=== PATIENT | female | born 1955 | race Caucasian/White ===

== ENCOUNTER → 2024-09-08 | Outpatient (CLI) | payer MEDICARE, SELFPAY ==
--- NOTE | 2024-09-08 15:30 | XR_ITS ---
Examination: CT lumbar spine, without contrast. 2-D sagittal reconstructions. 2-D coronal reconstructions. 3-D reconstructions. Date and time of exam:September 08, 2024 1548 hours INDICATIONS: Low back pain radiating down the left leg 5 years CTDI: vol (mGy):54.2 DLP: (mGycm):1621 Technique: Multiple 1.25 mm axial sections of the lumbar spine without intravenous contrast have been obtained. 2-D sagittal and coronal reconstructions have been obtained. 3-D reconstructions have been obtained. Low dose protocols were performed. One or more of the following dose reduction techniques were used; automated exposure control, adjustment of the mA and/or KV according to patient size, use of iterative reconstruction technique. Findings: Moderate osteopenia No lumbar fracture Mild lumbar spondylosis No significant lumbar disc narrowing Lumbar pedicles, laminae, transverse and posterior spinous processes are intact L5-S1 no disc protrusion L4-L5 2 mm central lumbar disc bulge L3-L4 no disc protrusion L2-L3 no disc protrusion L1-L2 no disc protrusion IMPRESSION: No lumbar fracture or significant lumbar disc narrowing L4-L5 2 mm central lumbar disc bulge Consider MRI lumbar spine without contrast follow-up to best assess for acquired soft tissue spinal stenosis
[2024-09-08 15:59] LABS: Basophils % (Auto) 1 % (0-2.5); Eosinophils # (Auto) 0.1 Thou/mm3 (0.0-0.5); Eosinophils % (Auto) 2 % (0-10); Hematocrit 31.3 % (36.0-46.0); Hemoglobin 9.5 g/dL (12.0-16.0); Immature Granulocytes % (Auto) 0 % (0-0); Immature Granulocytes Auto 0.02 Thou/mm3 (0.00-0.00); Lymphocytes % (Auto) 16 % (10-50); Mean Corpuscular HGB Conc 30.4 g/dl (31.0-37.0); Mean Corpuscular Hemoglobin 27.9 pg (25.0-35.0); Mean Corpuscular Volume 92 fL (80-100); Monocytes # (Auto) 0.4 Thou/mm3 (0.0-0.8); Monocytes % (Auto) 7 % (0-12); Neutrophils # (Auto) 4.5 Thou/mm3 (1.8-7.7); Neutrophils % (Auto) 74 % (37-80); Nucleated Red Blood Cell % 0 /100 WBC (0); Platelet Count 365 Thou/mm3 (140-440); RDW Standard Deviation 50.3 fL (36.4-46.3); Red Blood Count 3.41 Miln/mm3 (4.00-5.20); White Blood Count 6.1 Thou/mm3 (3.6-11.0)
[2024-09-08 16:16] LABS: Folate 9.03 ng/mL (>5.38); Vitamin B12 341 pg/mL (211-911)
[2024-09-08 16:31] LABS: Alanine Aminotransferase 9 U/L (10-49); Albumin, Serum 4.5 gm/dL (3.4-4.8); Alkaline Phosphatase 116 U/L (46-116); Anion Gap 4 (7-16); Aspartate Amino Transferase < 8 U/L (0-34); B-Type Natriuretic Peptide 527 pg/mL (0-100); BUN/Creatinine Ratio 20 Ratio (12-20); Bilirubin,Total 0.8 mg/dL (0.3-1.2); Blood Urea Nitrogen 20 mg/dL (9-23); Calcium 9.8 mg/dL (8.3-10.6); Calcium (Corrected) 9.8 mg/dL (8.5-10.1); Carbon Dioxide 31.1 mMol/L (20.0-31.0); Chloride 104 mMol/L (98-107); Globulin 2.2 gm/dL (2.3-3.5); Glucose 107 mg/dL (74-106); Osmolality,Calculated 280 (275-295); Potassium 4.5 mMol/L (3.4-5.1); Sodium 139 mMol/L (136-145); Total Protein 6.7 gm/dL (5.7-8.2); eGFR > 60 See Note
[2024-09-08 16:35] LABS: Ferritin 79 ng/mL (7.3-270.7); Total Iron Binding Capacity 331 mcg/dL (250-425)
[2024-09-08 16:44] LABS: Iron 42 mcg/dL (50-170)
[2024-09-12 06:48] LABS: Gamma Glutamyl Transpeptidase* 29 U/L (3-65)
[2024-09-14 13:34] LABS: Vitamin B1 (Thiamine)* 12 nmol/L (8-30)
== END | disposition home or self-care (01) ==
LOC: CCTX 14:43 → COPL 14:49
PROVIDERS: PCP Nurse Practitioner; Referring Provider Nurse Practitioner; Visit Provider Radiology Diagnostic Radiology
DX: M51.369 Other intervertebral disc degeneration, lumbar region without mention of lumbar back pain or lower extremity pain (principal); D63.8 Anemia in other chronic diseases classified elsewhere; E87.6 Hypokalemia; R06.00 Dyspnea, unspecified; F10.20 Alcohol dependence, uncomplicated
CPT/HCPCS: 36415; 72131; 80053; 82607; 82728; 82746; 82977; 83540; 83550; 83880; 84425; 85025

== ENCOUNTER → 2024-09-26 | Outpatient (CLI) | payer MEDICARE, SELFPAY ==
[2024-09-26 09:28] LABS: Basophils % (Auto) 1 % (0-2.5); Eosinophils # (Auto) 0.3 Thou/mm3 (0.0-0.5); Eosinophils % (Auto) 5 % (0-10); Hematocrit 32.6 % (36.0-46.0); Hemoglobin 9.9 g/dL (12.0-16.0); Immature Granulocytes % (Auto) 0 % (0-0); Immature Granulocytes Auto 0.01 Thou/mm3 (0.00-0.00); Lymphocytes # (Auto) 1.1 Thou/mm3 (1.0-4.8); Lymphocytes % (Auto) 19 % (10-50); Mean Corpuscular HGB Conc 30.4 g/dl (31.0-37.0); Mean Corpuscular Hemoglobin 27.3 pg (25.0-35.0); Mean Corpuscular Volume 90 fL (80-100); Monocytes # (Auto) 0.4 Thou/mm3 (0.0-0.8); Monocytes % (Auto) 7 % (0-12); Neutrophils # (Auto) 3.8 Thou/mm3 (1.8-7.7); Neutrophils % (Auto) 68 % (37-80); Nucleated Red Blood Cell % 0 /100 WBC (0); Platelet Count 286 Thou/mm3 (140-440); Red Blood Count 3.62 Miln/mm3 (4.00-5.20); White Blood Count 5.7 Thou/mm3 (3.6-11.0)
[2024-09-26 09:40] LABS: B-Type Natriuretic Peptide 270 pg/mL (0-100)
[2024-09-26 09:41] LABS: Alanine Aminotransferase 10 U/L (10-49); Albumin, Serum 4.4 gm/dL (3.4-4.8); Albumin/Globulin Ratio 1.6 (1.2-2.2); Alkaline Phosphatase 120 U/L (46-116); Anion Gap 9 (7-16); Aspartate Amino Transferase 16 U/L (0-34); BUN/Creatinine Ratio 19 Ratio (12-20); Bilirubin,Total 0.9 mg/dL (0.3-1.2); Blood Urea Nitrogen 17 mg/dL (9-23); Calcium 9.8 mg/dL (8.3-10.6); Calcium (Corrected) 9.8 mg/dL (8.5-10.1); Carbon Dioxide 30.5 mMol/L (20.0-31.0); Chloride 104 mMol/L (98-107); Creatinine (Component) 0.9 mg/dL (0.6-1.3); Globulin 2.7 gm/dL (2.3-3.5); Glucose 98 mg/dL (74-106); Osmolality,Calculated 286 (275-295); Potassium 3.4 mMol/L (3.4-5.1); Sodium 143 mMol/L (136-145); Total Protein 7.1 gm/dL (5.7-8.2); eGFR > 60 See Note
== END | disposition home or self-care (01) ==
LOC: COPL 08:35
PROVIDERS: PCP Family Medicine; Referring Provider Nurse Practitioner; Visit Provider Nurse Practitioner
DX: I50.9 Heart failure, unspecified (principal); R06.00 Dyspnea, unspecified; E87.6 Hypokalemia
CPT/HCPCS: 36415; 80053; 83880; 85025

== ENCOUNTER 2025-02-20 05:37 | Inpatient (IN) | payer MEDICARE, SELFPAY ==
[2025-02-20] VITALS (19 sets, daily range): BP systolic 120–217; BP diastolic 66–118; PULSE 72–121; RESP 12–44; TEMP 36–36.9; O2SAT 88–100; BMI 41.9
--- NOTE | 2025-02-20 05:40 | EKG_ITS ---
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
--- NOTE | 2025-02-20 05:43 | XR_ITS ---
Examination: AP chest single view Technique an AP portable upright chest single view Exam date and time: February 20, 2025 at 0607 hours INDICATIONS: Shortness of breath a FINDINGS: [id number] CHF Mild to moderate enlargement cardiac contour Prominent vascular congestion including central vascular engorgement with bilateral perihilar edema throughout the lungs Moderate osteopenia IMPRESSION: Ehgb-ft-fhxkjger CHF
--- NOTE | 2025-02-20 05:43 | PD.EDRME ---
Rapid Medical Screening Exam RME Arrival date/time: 02/20/25 05:37 Chief Complaint: Shortness of Breath/Dyspnea Vital signs: Vital Signs Temperature 98.4 F 02/20/25 05:37 Pulse Rate 112 H 02/20/25 05:37 Respiratory Rate 31 H 02/20/25 05:37 Blood Pressure 215/118 H 02/20/25 05:37 Pulse Oximetry (%) 90 L 02/20/25 05:37 Oxygen Delivery Method Room Air 02/20/25 05:37 RME Narrative: Shortness of breath initiated yesterday. No chest pain. Hx CHF. Chronic home O2 use 2L nightly and as needed.
[2025-02-20] MEDS: ONDANSETRON INJ 2 MG/ML INJ 2 ML 4 MG IV ×2 (06:14→07:45)
--- NOTE | 2025-02-20 06:28 | PD.EDSOB ---
ED SOB =RME/HPI General Chief Complaint: Shortness of Breath/Dyspnea Stated Complaint: SOB, CHEST PAIN, N/V Time Seen by Provider: 02/20/25 06:29 Arrival date/time: 02/20/25 05:37 RME / HPI RME / HPI Narrative: Shortness of breath initiated yesterday. No chest pain. Hx CHF. Chronic home O2 use 2L nightly and as needed. DR. CASPER MAIN ED EVALUATION: 69 year old female presents to the Emergency Department with complaint of shortness of breath. Patient missed a couple days of her lasix. Oxygen home use at night, 2L/min. 0854: Patient is now complaining also of lower abdominal pain. No rash. Related Data Home Medications ?Medication ?Instructions ?Recorded ?Confirmed furosemide 40 mg tablet 40 mg PO BID 08/07/23 02/20/25 sucralfate 100 mg/mL oral 10 ml PO QID PRN pain 08/07/23 02/20/25 suspension cholecalciferol (vitamin D3) 125 125 mcg PO DAILY 09/10/23 02/20/25 mcg (5,000 unit) capsule clonidine HCl 0.1 mg tablet 0.1 mg PO BID 09/10/23 02/20/25 fluoxetine 40 mg capsule 40 mg PO BID 09/10/23 02/20/25 gabapentin 300 mg capsule 300 mg PO BID 09/10/23 02/20/25 hydrocodone 10 mg-acetaminophen 1 tab PO Q4HR PRN Pain 09/10/23 08/24/24 325 mg tablet Held on 02/24/25. Instructions: Hold until you see your PCP clopidogrel 75 mg tablet 75 mg PO 1XD 07/24/24 02/20/25 Previous Rx's ?Medication ?Instructions ?Recorded aspirin 81 mg capsule 81 mg PO QDAY #30 caps 03/07/22 albuterol sulfate 90 mcg/actuation 1 inh inhalation QID PRN shortness 02/24/25 aerosol inhaler (Ventolin HFA) of breath or wheezing 1 month #6.7 grams atorvastatin 20 mg tablet 20 mg PO QDAY 1 month #30 tabs 02/24/25 guaifenesin 100 mg/5 mL oral liquid 200 mg (10 mL) PO QID PRN Cough Or 02/24/25 Congestion #473 mL lidocaine 5 % topical patch 1 patch top UD PRN Back Pain #15 ea 02/24/25 losartan 50 mg tablet 50 mg PO QDAY 1 month #30 tabs 02/24/25 pantoprazole 40 mg tablet,delayed 40 mg PO QDAY 30 days #30 tabs 02/24/25 release potassium chloride 20 mEq 20 meq PO QDAY 1 month #30 tabs 02/24/25 tablet,extended release tiotropium 2.5 mcg-olodaterol 2.5 2 puff inhalation QDAY 1 month #4 02/24/25 mcg/actuation mist for inhalation grams Allergies Allergy/AdvReac Type Severity Reaction Status Date / Time hydralazine Allergy Severe Anxiety Verified 08/25/24 05:02 Sulfa (Sulfonamide Allergy Severe Rash Verified 07/24/24 04:10 Antibiotics) Review of Systems Review of Systems Systems Reviewed: All systems reviewed, normal except as documented Narrative Review of Systems: GEN: No fever, no chills, no weight loss EYES: No discharge, no visual changes, no pain HEENT: No ear pain, no congestion, no sore throat PULM: + shortness of breath, no cough, no congestion CV: No chest pain, no dyspnea on exertion, no palpitations GI: No nausea, no vomiting, no diarrhea, no pain, no constipation : No frequency, no urgency and no dysuria MUSC/SKEL: No joint pain, no back pain SKIN: No rash PSYCH: No hallucinations, no depression HEME/LYMPH: No easy bleeding or bruising tendencies NEURO: No weakness, no headache Past Medical History Past Medical History NEUROLOGIC: Positive Head Trauma CARDIAC: Positive Cardiac Disorders, Angina, Heart Murmur, Coronary Artery Disease, Atherosclerotic Heart Disease, Peripheral Vascular Disease, Congestive Heart Failure, Edema, Cellulitis and Hypertension RESPIRATORY: Positive Chronic Obstructive Pulmonary Disease (COPD), Asthma, Pneumonia and Smoking GASTROINTESTINAL: Positive Gastrointestinal Disorders, Hepatitis, Cirrhosis, Gall Bladder Disease (removed), Ulcer, Hiatal Hernia, Hemorrhoids, Gastroesophageal Reflux Disease and Obesity MUSCULOSKELETAL: Positive Musculoskeletal Disorders, Arthritis, Osteoporosis, Degenerative Disk Disease, Scoliosis, Carpal Tunnel Syndrome and Fractures ENT: Positive Head Trauma PSYCHO/SOCIAL: Positive Depression and Anxiety OTHER HISTORY: Positive Hospitalization, Shingles, Falls, Chicken Pox, Measles, Hepatitis A and Hepatitis C Family History FAMILY HISTORY: Positive Family Respiratory Disorders, Family Cardiac Disorders, Family Gastrointestinal Problems, Family Cancer and Family Surgery Surgical History SURGICAL: Positive Cardiac Surgery, Coronary Stent, Angiogram, Abdominal Surgery, Joint Replacement, Arthroscopy and Hysterectomy Social History SMOKING STATUS: Never smoker SECOND HAND EXPOSURE: No SUBSTANCE USE: does not use ALCOHOL: Never ED Exam Narrative Physical exam: GENERAL APPEARANCE: alert and oriented x 4, well-developed, well-nourished, in respiratory distress, morbidly obese, she has a wet cough, diaphoretic VITALS: All vitals were reviewed and the pulse ox is 90% on room air, which is normal according to my interpretation. HEENT: Normocephalic, atraumatic; pupils equal, round, reactive to light; EOMI; mucous membranes pink, moist; oropharynx clear NECK: Supple LUNGS: respiratory distress, tachypneic, decreased air movement, bilateral lung crackles HEART: Regular rate, regular rhythm; normal S1, S2; no murmurs ABDOMEN: non distended; normal BS; soft, no tenderness, no guarding, no rebound; no masses, no organomegaly, no hernia BACK: no CVA tenderness EXTREMITIES: atraumatic; there is 3+ pitting edema bilaterally NEUROLOGIC: awake; alert and oriented x4; cranial nerves II-XII grossly intact; no focal sensory or motor deficits PSYCHIATRIC: appropriate mood and affect SKIN: warm, dry, normal color; no rashes Course Quality Measures none Orders Category Date Time Status Bedside COVID-19 Antigen Test NOW Care 02/20/25 06:51 Completed EKG (ED ONLY) *Do not use* NOW Care 02/20/25 05:40 Completed Rashid [Urinary Catheter] QS Care 02/20/25 07:25 Completed CXR [XR chest 1V] Stat Exams 02/20/25 05:43 Completed EKG (ED Only) Stat Exams 02/20/25 05:40 Draft BNP [B-Type Natriuretic Peptide] Stat Lab 02/20/25 06:13 Completed CBC Stat Lab 02/20/25 06:13 Completed CMP [Comprehensive Metabolic Panel] Stat Lab 02/20/25 06:13 Completed Troponin I Stat Lab 02/20/25 06:13 Completed UA, C/S IF [Urinalysis, C/S if Indicated] Stat Lab 02/20/25 07:56 Completed Furosemide Inj [Lasix Inj] Med 02/20/25 06:29 Discontinued 80 mg IVP X1 ONE Morphine Inj Med 02/20/25 06:29 Discontinued 3 mg IVP X1 ONE Morphine Inj Med 02/20/25 07:40 Discontinued 5 mg IVP X1 ONE Nitroglycerin Oint 2% [Nitro-paste Oint 2%] Med 02/20/25 06:29 Discontinued 1 inch TOP X1 ONE Ondansetron Inj [Zofran Inj] Med 02/20/25 05:48 Discontinued 4 mg IV X1 ONE Ondansetron Inj [Zofran Inj] Med 02/20/25 06:29 Discontinued 4 mg IV X1 ONE Ondansetron Inj [Zofran Inj] Med 02/20/25 07:40 Discontinued 4 mg IV X1 ONE BiPAP / CPAP NOW RT 02/20/25 06:40 Completed Reevaluation(s) Reevaluation #1: Patient is now complaining also of lower abdominal pain. No rash. Patient is no longer in respiratory distress. No longer diaphoretic. Abdomen is nontender, no rebound, benign. Legs are the same, there is 3+ pitting edema bilaterally. Time: 08:54 Vital Signs Vital signs: Vital Signs Temperature 98.4 F 02/20/25 05:37 Pulse Rate 112 H 02/20/25 05:37 Respiratory Rate 31 H 02/20/25 05:37 Blood Pressure 215/118 H 02/20/25 05:37 Pulse Oximetry (%) 90 L 02/20/25 05:37 Oxygen Delivery Method Room Air 02/20/25 05:37 Shortness of Breath / Dyspnea MDM Narrative MDM Narrative:: Rae Davies am scribing for and in the presence of Dr. Casper. Patient data External records reviewed:: [facility] previous records (Reviewed last admission discharge dated 08/28/24, patient admitted for the following: Acute exacerbation of CHF.) Clinical information provided by:: patient Social determinants that could affect healthcare access:: none Patient has the following chronic illnesses:: Hypertension, HFrEF 50 to 60%, history of hepatitis C, coronary artery disease with Multiple coronary stent placement. How is presenting disease/condition affected by chronic disease/condition?: exacerbated by Evaluation data The following diagnostics were reviewed and interpreted by me:: lab results, radiology exam(s) and EKG tracing(s) (EKG#1: EKG at 0543 hours. Interpreted by me: sinus tachycardia, rate 104, Q waves in V1 and V2, artifact) Lab and/or radiology exams considered but not ordered:: none Interpretation Summary: Procedure(s): XR chest 1V Accession Number(s): [id number] cc: Julianna Yoon; Murray Leblanc MD; Alejandro Ng PA-C~ Examination: AP chest single view Technique an AP portable upright chest single view Exam date and time: February 20, 2025 at 0607 hours INDICATIONS: Shortness of breath a FINDINGS: [id number] CHF Mild to moderate enlargement cardiac contour Prominent vascular congestion including central vascular engorgement with bilateral perihilar edema throughout the lungs Moderate osteopenia IMPRESSION: [id number] CHF Dictated By: Murray Leblanc MD Medications / Prescriptions Medications or Prescriptions considered but not ordered:: none Medication administrations:: Medication Administration History Discontinued Medications Acetaminophen (Acetaminophen 325 Mg Tablet) 650 mg PO Q6H PRN PRN Reason: Pain (1-3) & Fever >100.4 Stop: 03/22/25 10:04 Last Admin: 02/20/25 19:21 Dose: 650 mg Documented By: BHUMIKA Hydrocodone Bitart/Acetaminophen (Hydrocodone/Apap 5/325 Tablet) 1 tab PO Q4HR PRN PRN Reason: PAIN SCALE 4-10(Mod-Sev Stop: 02/25/25 10:09 Last Admin: 02/21/25 09:47 Dose: 1 tab Documented By: Admin: 02/21/25 03:54 Dose: 1 tab Documented By: RICIK Hydrocodone Bitart/Acetaminophen (Hydrocodone/Apap 5/325 Tablet) 1 tab PO Q4HR PRN PRN Reason: PAIN SCALE 4-6 (Moderate Stop: 02/25/25 10:09 Hydrocodone Bitart/Acetaminophen (Hydrocodone/Apap 10/325 Tab) 1 tab PO Q4HR PRN PRN Reason: PAIN SCALE 4-10(Mod-Sev Stop: 02/27/25 11:55 Last Admin: 02/23/25 05:35 Dose: 1 tab Documented By: VR Albuterol/Ipratropium (Albuterol/Ipratropium (Duoneb) Rt Fatmata 3 Ml Nebu) 3 ml INH Q6HRRT LAMINE Stop: 03/25/25 12:59 Last Admin: 02/24/25 12:34 Dose: Not Given Documented By: RG Non-Admin Reason: Patient Refused Admin: 02/24/25 09:35 Dose: Not Given Documented By: CARLOS Non-Admin Reason: Other, see note Comments: rt unaware Admin: 02/24/25 01:03 Dose: 3 ml Documented By: Admin: 02/23/25 17:56 Dose: 3 ml Documented By: NICOLE Comments: tx early short staff Admin: 02/23/25 13:39 Dose: 3 ml Documented By: IFEANYI Amlodipine Besylate (Amlodipine Besylate 5 Mg Tablet) 5 mg PO QDAY LAMINE Stop: 03/24/25 08:59 Last Admin: 02/24/25 08:16 Dose: 5 mg Documented By: Admin: 02/23/25 09:00 Dose: 5 mg Documented By: Admin: 02/22/25 09:21 Dose: 5 mg Documented By: SHANTAL Aspirin (Aspirin Ec 81 Mg Tabec) 81 mg PO QDAY LAMINE Stop: 03/23/25 08:59 Last Admin: 02/24/25 08:16 Dose: 81 mg Documented By: Admin: 02/23/25 09:00 Dose: 81 mg Documented By: Admin: 02/22/25 09:22 Dose: 81 mg Documented By: Admin: 02/21/25 09:29 Dose: 81 mg Documented By: BOOKER Atorvastatin Calcium (Atorvastatin Calcium 20 Mg Tablet) 80 mg PO QPM LAMINE Stop: 03/23/25 20:59 Atropine Sulfate (Atropine Sulf Inj 1 Mg/Ml Vial) Confirm Administered Dose 1 mg .ROUTE .STK-MED ONE Stop: 02/22/25 07:24 Last Admin: 02/22/25 07:51 Dose: Not Given Documented By: Non-Admin Reason: Duplicate Medication on eMAR Clonidine (Clonidine Hcl 0.1 Mg Tablet) 0.1 mg PO X1 ONE Stop: 02/21/25 04:00 Last Admin: 02/21/25 04:08 Dose: 0.1 mg Documented By: RICKI Clonidine (Clonidine Hcl 0.1 Mg Tablet) 0.1 mg PO BID LAMINE Stop: 03/23/25 20:59 Last Admin: 02/22/25 09:21 Dose: 0.1 mg Documented By: Admin: 02/21/25 20:15 Dose: 0.1 mg Documented By: RICKI Clonidine (Clonidine Hcl 0.1 Mg Tablet) 0.1 mg PO TID LAMINE Stop: 03/24/25 13:59 Last Admin: 02/24/25 05:39 Dose: 0.1 mg Documented By: Admin: 02/23/25 22:28 Dose: Not Given Documented By: JAYDA Non-Admin Reason: PT REFUSED. AWARE Admin: 02/23/25 14:48 Dose: Not Given Documented By: DENISHA Non-Admin Reason: HOLD PER DR. MATUTE 127/448 Admin: 02/23/25 05:25 Dose: 0.1 mg Documented By: Admin: 02/22/25 21:00 Dose: 0.1 mg Documented By: Admin: 02/22/25 13:19 Dose: 0.1 mg Documented By: SHANTAL Clonidine (Clonidine Hcl 0.1 Mg Tablet) 0.1 mg PO BID LAMINE Stop: 03/26/25 20:59 Clopidogrel Bisulfate (Clopidogrel Bisulfate 75 Mg Tablet) 75 mg PO QDAY LAMINE Stop: 03/23/25 08:59 Last Admin: 02/24/25 08:16 Dose: 75 mg Documented By: Admin: 02/23/25 09:00 Dose: 75 mg Documented By: Admin: 02/22/25 09:22 Dose: 75 mg Documented By: Admin: 02/21/25 09:29 Dose: 75 mg Documented By: BOOKER Nitroglycerin 50 mg/ Sodium (Chloride 240 ml) 0 mg INTRA-JANEL X1 ONE Stop: 02/22/25 07:35 Last Admin: 02/22/25 08:08 Dose: Not Given Documented By: Non-Admin Reason: Duplicate Medication on eMAR Enoxaparin Sodium (Enoxaparin Sod Inj 40 Mg/0.4 Ml Syringe) 40 mg SC QDAY LAMINE Stop: 03/07/25 08:59 Last Admin: 02/24/25 08:15 Dose: 40 mg Documented By: Admin: 02/23/25 09:01 Dose: 40 mg Documented By: Admin: 02/22/25 09:22 Dose: 40 mg Documented By: Admin: 02/21/25 09:30 Dose: 40 mg Documented By: BOOKER Epinephrine HCl (Epinephrine Inj 0.1 Mg/Ml Syringe 10ml) Confirm Administered Dose 1 mg .ROUTE .STK-MED ONE Stop: 02/22/25 07:25 Last Admin: 02/22/25 07:53 Dose: Not Given Documented By: Non-Admin Reason: Duplicate Medication on eMAR Fentanyl Citrate (Fentanyl Cit Inj 50 Mcg/Ml Amp 2ml) Confirm Administered Dose 100 mcg .ROUTE .STK-MED ONE Stop: 02/22/25 07:24 Last Admin: 02/22/25 07:52 Dose: Not Given Documented By: Non-Admin Reason: Duplicate Medication on eMAR Flumazenil (Flumazenil Inj 0.1 Mg/Ml Vial 10 Ml) Confirm Administered Dose 1 mg .ROUTE .STK-MED ONE Stop: 02/22/25 07:25 Last Admin: 02/22/25 07:53 Dose: Not Given Documented By: Non-Admin Reason: Duplicate Medication on eMAR Fluoxetine HCl (Fluoxetine Hcl 10 Mg Capsule) 40 mg PO BID LAMINE Stop: 03/22/25 23:29 Last Admin: 02/24/25 08:15 Dose: 40 mg Documented By: Admin: 02/23/25 21:22 Dose: 40 mg Documented By: Admin: 02/23/25 09:01 Dose: 40 mg Documented By: Admin: 02/22/25 20:58 Dose: 40 mg Documented By: Admin: 02/22/25 09:21 Dose: 40 mg Documented By: Admin: 02/21/25 20:14 Dose: 40 mg Documented By: Admin: 02/21/25 09:40 Dose: Not Given Documented By: BOOKER Non-Admin Reason: Duplicate Medication on eMAR Admin: 02/20/25 23:26 Dose: 40 mg Documented By: RICKI Fluoxetine HCl (Fluoxetine Hcl 10 Mg Capsule) 40 mg PO BID LAMINE Stop: 03/23/25 08:59 Last Admin: 02/21/25 09:28 Dose: 40 mg Documented By: BOOKER Furosemide (Furosemide Inj 10 Mg/Ml 4ml Vial) 80 mg IVP X1 ONE Stop: 02/20/25 06:30 Last Admin: 02/20/25 06:46 Dose: 80 mg Documented By: JAY Furosemide (Furosemide Inj 10 Mg/Ml 4ml Vial) 40 mg IVP BIDD LAMINE Stop: 03/22/25 17:59 Last Admin: 02/24/25 05:38 Dose: 40 mg Documented By: Admin: 02/23/25 17:33 Dose: Not Given Documented By: DENISHA Non-Admin Reason: hold dose per Dr Marrero 122/45 Admin: 02/23/25 05:24 Dose: 40 mg Documented By: Admin: 02/22/25 17:24 Dose: 40 mg Documented By: Admin: 02/22/25 05:17 Dose: 40 mg Documented By: Admin: 02/21/25 17:19 Dose: 40 mg Documented By: Admin: 02/21/25 05:11 Dose: 40 mg Documented By: Admin: 02/20/25 18:50 Dose: 40 mg Documented By: BHUMIKA Gabapentin (Gabapentin 100 Mg Capsule) 300 mg PO BID LAMINE Stop: 03/22/25 20:59 Last Admin: 02/22/25 20:59 Dose: 300 mg Documented By: Admin: 02/22/25 09:22 Dose: 300 mg Documented By: Admin: 02/21/25 20:15 Dose: 300 mg Documented By: Admin: 02/21/25 09:28 Dose: 300 mg Documented By: Admin: 02/20/25 20:26 Dose: 300 mg Documented By: RICKI Gabapentin (Gabapentin 300 Mg Capsule) 300 mg PO BID LAMINE Stop: 03/22/25 20:59 Last Admin: 02/24/25 08:16 Dose: 300 mg Documented By: Admin: 02/23/25 21:22 Dose: 300 mg Documented By: Admin: 02/23/25 09:09 Dose: 300 mg Documented By: DENISHA Guaifenesin (Guaifenesin Syrup 200 Mg/10 Ml Udc) 200 mg PO X1 ONE; Protocol Stop: 02/21/25 19:42 Last Admin: 02/21/25 20:14 Dose: 200 mg Documented By: RICKI Guaifenesin (Guaifenesin Syrup 200 Mg/10 Ml Udc) 200 mg PO QID PRN; Protocol PRN Reason: COUGH OR CONGESTION Stop: 03/24/25 09:07 Last Admin: 02/23/25 21:22 Dose: 200 mg Documented By: Admin: 02/23/25 09:31 Dose: 200 mg Documented By: Admin: 02/23/25 00:33 Dose: 200 mg Documented By: Admin: 02/22/25 09:31 Dose: 200 mg Documented By: SHANTAL Heparin Sodium (Porcine) (Heparin Sod Inj 1000 Unit/Ml Vial 10 Ml) Confirm Administered Dose 20,000 unit .ROUTE .[facility]-MED ONE Stop: 02/22/25 07:25 Last Admin: 02/22/25 07:53 Dose: Not Given Documented By: Non-Admin Reason: Duplicate Medication on eMAR Magnesium Sulfate (Magnesium Sulfate Ivpb) 4 gm in 50 mls @ 12.5 mls/hr IV X1 ONE Stop: 02/21/25 11:45 Last Admin: 02/21/25 09:27 Dose: 12.5 mls/hr Documented By: BOOKER Magnesium Sulfate (Magnesium Sulfate Ivpb) 2 gm in 50 mls @ 25 mls/hr IV X1 ONE Stop: 02/22/25 09:27 Last Admin: 02/22/25 09:17 Dose: 25 mls/hr Documented By: SHANTAL Potassium Chloride (Kcl Ivpb) 10 meq in 100 mls @ 100 mls/hr IV Q1H LAMINE Stop: 02/23/25 10:08 Last Admin: 02/23/25 09:28 Dose: Not Given Documented By: DENISHA Non-Admin Reason: Patient Refused Admin: 02/23/25 09:26 Dose: Not Given Documented By: DENISHA Non-Admin Reason: Patient Refused Magnesium Sulfate/Dextrose (Magnesium Sulfate Ivpb) 1 gm in 100 mls @ 100 mls/hr IV X1 ONE Stop: 02/23/25 09:09 Last Admin: 02/23/25 09:35 Dose: 100 mls/hr Documented By: DENISHA Magnesium Sulfate/Dextrose (Magnesium Sulfate Ivpb) 1 gm in 100 mls @ 100 mls/hr IV X1 ONE Stop: 02/24/25 08:58 Last Admin: 02/24/25 08:15 Dose: 100 mls/hr Documented By: DENISHA Labetalol HCl (Labetalol Inj 5 Mg/Ml Vial 20 Ml) 10 mg IVP X1 ONE Stop: 02/21/25 17:09 Last Admin: 02/21/25 17:18 Dose: 10 mg Documented By: SHANTAL Lactulose (Lactulose Syrup 20 Gm/30 Ml Udc) 10 gm PO X1 ONE; Protocol Stop: 02/23/25 09:57 Last Admin: 02/23/25 11:03 Dose: 10 gm Documented By: DENISHA Lidocaine (Lidocaine 5% 1 Patch) 1 patch TOP UD PRN; Protocol PRN Reason: Back Pain Stop: 03/24/25 09:05 Lidocaine HCl (Lidocaine Inj Pf 1% 30 Ml Vial) Confirm Administered Dose 30 ml .ROUTE .STK-MED ONE Stop: 02/22/25 07:25 Last Admin: 02/22/25 07:53 Dose: Not Given Documented By: Non-Admin Reason: Duplicate Medication on eMAR Losartan Potassium (Losartan Potassium 25 Mg Tablet) 50 mg PO BID LAMINE Stop: 03/22/25 23:29 Last Admin: 02/24/25 08:17 Dose: 50 mg Documented By: Admin: 02/23/25 22:28 Dose: Not Given Documented By: JAYDA Non-Admin Reason: PT REFUSED. DR. MCKAY AWARE Admin: 02/23/25 08:59 Dose: 50 mg Documented By: Admin: 02/22/25 20:58 Dose: 50 mg Documented By: Admin: 02/22/25 09:21 Dose: 50 mg Documented By: Admin: 02/21/25 20:16 Dose: 50 mg Documented By: Admin: 02/21/25 09:29 Dose: 50 mg Documented By: Admin: 02/20/25 23:27 Dose: 50 mg Documented By: RICKI Melatonin (Melatonin 3 Mg Tablet) 3 mg PO HS ONE Stop: 02/21/25 19:42 Last Admin: 02/21/25 20:15 Dose: 3 mg Documented By: RICKI Midazolam HCl (Midazolam Inj 1 Mg/Ml Vial 2 Ml) Confirm Administered Dose 2 mg .ROUTE .STK-MED ONE Stop: 02/22/25 07:24 Last Admin: 02/22/25 07:52 Dose: Not Given Documented By: Non-Admin Reason: Duplicate Medication on eMAR Morphine Sulfate (Morphine Sulf Inj 10 Mg/Ml Vial) 3 mg IVP X1 ONE Stop: 02/20/25 06:30 Last Admin: 02/20/25 06:47 Dose: 3 mg Documented By: JAY Morphine Sulfate (Morphine Sulf Inj 10 Mg/Ml Vial) 5 mg IVP X1 ONE Stop: 02/20/25 07:41 Last Admin: 02/20/25 07:50 Dose: 5 mg Documented By: ENOC Morphine Sulfate (Morphine Sulf Inj 10 Mg/Ml Vial) 2 mg IVP Q4HR PRN PRN Reason: Severe Pain (7-10) Stop: 02/27/25 09:05 Last Admin: 02/22/25 09:17 Dose: 2 mg Documented By: SHANTAL Morphine Sulfate (Morphine Sulf Inj 10 Mg/Ml Vial) 2 mg IVP Q4HR PRN PRN Reason: BREAKTHROUGH PAIN (SEVERE) Stop: 02/27/25 09:05 Naloxone HCl (Naloxone Inj 0.4 Mg/Ml Vial) Confirm Administered Dose 1.2 mg .ROUTE .STK-MED ONE Stop: 02/22/25 07:24 Last Admin: 02/22/25 07:52 Dose: Not Given Documented By: Non-Admin Reason: Duplicate Medication on eMAR Nitroglycerin (Nitroglycerin Oint 2% 1 Inch Packet) 1 inch TOP X1 ONE Stop: 02/20/25 06:30 Last Admin: 02/20/25 06:47 Dose: 1 inch Documented By: JAY Ondansetron HCl (Ondansetron Inj 2 Mg/Ml Inj 2 Ml) 4 mg IV X1 ONE; Protocol Stop: 02/20/25 05:49 Last Admin: 02/20/25 06:14 Dose: 4 mg Documented By: JAY Ondansetron HCl (Ondansetron Inj 2 Mg/Ml Inj 2 Ml) 4 mg IV X1 ONE Stop: 02/20/25 06:30 Last Admin: 02/20/25 07:22 Dose: Not Given Documented By: GEM Non-Admin Reason: Cancelled by Provider Ondansetron HCl (Ondansetron Inj 2 Mg/Ml Inj 2 Ml) 4 mg IV X1 ONE Stop: 02/20/25 07:41 Last Admin: 02/20/25 07:45 Dose: 4 mg Documented By: ENOC Ondansetron HCl (Ondansetron Inj 2 Mg/Ml Inj 2 Ml) 4 mg IV Q6H PRN; Protocol PRN Reason: NAUSEA OR VOMITING Stop: 03/22/25 10:09 Last Admin: 02/21/25 17:35 Dose: 4 mg Documented By: SHANTAL Pantoprazole Sodium (Pantoprazole 40 Mg Tablet) 40 mg PO QDAY LAMINE Stop: 03/23/25 08:59 Last Admin: 02/24/25 08:16 Dose: 40 mg Documented By: Admin: 02/23/25 09:01 Dose: 40 mg Documented By: Admin: 02/22/25 09:22 Dose: 40 mg Documented By: Admin: 02/21/25 09:29 Dose: 40 mg Documented By: BOOKER Phenylephrine HCl (Phenylephrine Inj 10 Mg/Ml Vial) Confirm Administered Dose 10 mg .ROUTE .STK-MED ONE Stop: 02/22/25 07:24 Last Admin: 02/22/25 07:52 Dose: Not Given Documented By: Non-Admin Reason: Duplicate Medication on eMAR Phenylephrine HCl (Phenylephrine Inj In Ns 100 Mcg/Ml 10 Ml Syringe) Confirm Administered Dose 1,000 mcg .ROUTE .STK-MED ONE Stop: 02/22/25 07:25 Last Admin: 02/22/25 07:53 Dose: Not Given Documented By: Non-Admin Reason: Duplicate Medication on eMAR Polyethylene Glycol (Polyethylene Glycol 17 Gm Packet) 17 gm PO QDAY LAMINE Stop: 03/23/25 09:44 Last Admin: 02/24/25 08:15 Dose: Not Given Documented By: DENISHA Non-Admin Reason: Patient Refused Admin: 02/23/25 08:59 Dose: 17 gm Documented By: Admin: 02/22/25 09:21 Dose: 17 gm Documented By: Admin: 02/21/25 10:31 Dose: 17 gm Documented By: BOOKER Potassium Chloride (Potassium Chloride 20 Meq Tabcr) 40 meq PO X1 ONE Stop: 02/21/25 07:46 Last Admin: 02/21/25 09:27 Dose: 40 meq Documented By: BOOKER Potassium Chloride (Potassium Chloride 20 Meq Tabcr) 40 meq PO X1 ONE Stop: 02/22/25 07:28 Last Admin: 02/22/25 09:22 Dose: 40 meq Documented By: SHANTAL Potassium Chloride (Potassium Chloride 20 Meq Tabcr) 40 meq PO X1 ONE Stop: 02/23/25 08:10 Last Admin: 02/23/25 09:08 Dose: 40 meq Documented By: DENISHA Potassium Chloride (Potassium Chloride 20 Meq Tabcr) 20 meq PO X1 ONE Stop: 02/23/25 09:57 Last Admin: 02/23/25 11:03 Dose: 20 meq Documented By: DENISHA Potassium Chloride (Potassium Chloride 20 Meq Tabcr) 40 meq PO X1 ONE Stop: 02/24/25 08:00 Last Admin: 02/24/25 08:16 Dose: 40 meq Documented By: DENISHA Sennosides (Senna Tablet) 2 tab PO QDAY PRN; Protocol PRN Reason: Constipation Stop: 03/23/25 08:59 Sennosides (Senna Tablet) 2 tab PO QDAY LAMINE; Protocol Stop: 03/23/25 09:44 Last Admin: 02/24/25 08:15 Dose: Not Given Documented By: DENISHA Non-Admin Reason: Patient Refused Admin: 02/23/25 09:00 Dose: 2 tab Documented By: Admin: 02/22/25 09:20 Dose: 2 tab Documented By: Admin: 02/21/25 10:31 Dose: 2 tab Documented By: BOOKER Sucralfate (Sucralfate Susp 1 Gm/10 Ml Udc) 1 gm PO QID PRN; Protocol PRN Reason: PAIN Stop: 03/23/25 07:37 Verapamil HCl (Verapamil Inj 2.5 Mg/Ml Vial 2 Ml) Confirm Administered Dose 5 mg .ROUTE .STK-MED ONE Stop: 02/22/25 07:24 Last Admin: 02/22/25 07:53 Dose: Not Given Documented By: Non-Admin Reason: Duplicate Medication on eMAR see above Consultations Consultation(s) initiated? (list below): Yes Consultation #1 (Physician, Specialty, Details): Discussed test HPI, PMHx, lab, radiology results and/or management with hospitalist. Will admit for further evaluation and management. Accepts patient for admission. Time: 08:57 Diagnosis Shortness of Breath Differential Diagnosis: acute exacerbation of chronic obstructive airways disease, congestive heart failure and community acquired pneumonia Most likely diagnosis given after review of the tests above:: CHF exacerbation Admission Indicated Admission indicated?: indicated Admission Request Was there a request for admission?: Yes Admission Attestation Admission request attestation: Discussed case with [] from Hospitalist service regarding admission. Discussed patients ED course, exam findings, labs, and radiology results. The Hospitalist [agrees,declines] to accept the patient for admission. Disposition Plan Disposition Plan: Admit Discharge Plan Plan Patient Disposition: Admit Acute Care w/in Hospital Problem List Clinical Impression: CHF exacerbation
[2025-02-20 06:37] LABS: Basophils # (Auto) 0.1 Thou/mm3 (0.0-0.2); Basophils % (Auto) 1 % (0-2.5); Eosinophils # (Auto) 0.3 Thou/mm3 (0.0-0.5); Eosinophils % (Auto) 3 % (0-10); Hematocrit 36.7 % (36.0-46.0); Hemoglobin 11.3 g/dL (12.0-16.0); Immature Granulocytes % (Auto) 1 % (0-0); Immature Granulocytes Auto 0.06 Thou/mm3 (0.00-0.00); Lymphocytes % (Auto) 9 % (10-50); Mean Corpuscular HGB Conc 30.8 g/dl (31.0-37.0); Mean Corpuscular Hemoglobin 26.4 pg (25.0-35.0); Mean Corpuscular Volume 86 fL (80-100); Monocytes % (Auto) 9 % (0-12); Neutrophils # (Auto) 8.6 Thou/mm3 (1.8-7.7); Neutrophils % (Auto) 78 % (37-80); Nucleated Red Blood Cell % 0 /100 WBC (0); Platelet Count 384 Thou/mm3 (140-440); RDW Standard Deviation 54.6 fL (36.4-46.3); Red Blood Count 4.28 Miln/mm3 (4.00-5.20); White Blood Count 10.9 Thou/mm3 (3.6-11.0)
[2025-02-20] MEDS: FUROSEMIDE INJ 10 MG/ML 4ML VIAL 80 MG IVP (06:46)
[2025-02-20] MEDS: MORPHINE SULF INJ 10 MG/ML VIAL 3 MG IVP (06:47)
[2025-02-20] MEDS: NITROGLYCERIN OINT 2% 1 INCH PACKET TOP (06:47)
[2025-02-20 06:49] LABS: Alanine Aminotransferase 25 U/L (10-49); Albumin, Serum 4.7 gm/dL (3.4-4.8); Albumin/Globulin Ratio 1.6 (1.2-2.2); Alkaline Phosphatase 208 U/L (46-116); Anion Gap 13 (7-16); Aspartate Amino Transferase 41 U/L (0-34); BUN/Creatinine Ratio 24 Ratio (12-20); Bilirubin,Total 1.5 mg/dL (0.3-1.2); Blood Urea Nitrogen 22 mg/dL (9-23); Calcium 9.4 mg/dL (8.3-10.6); Calcium (Corrected) 9.4 mg/dL (8.5-10.1); Carbon Dioxide 19.9 mMol/L (20.0-31.0); Chloride 100 mMol/L (98-107); Creatinine (Component) 0.9 mg/dL (0.6-1.3); Estimated Creatinine Clearance 79.2 mL/min (>60); Globulin 2.9 gm/dL (2.3-3.5); Glucose 102 mg/dL (74-106); Osmolality,Calculated 269 (275-295); Potassium 4.2 mMol/L (3.4-5.1); Sodium 133 mMol/L (136-145); Total Protein 7.6 gm/dL (5.7-8.2); Troponin I 0.039 ng/mL (0.0-0.045); eGFR > 60 See Note
--- NOTE | 2025-02-20 07:01 | PC.NURSE ---
WHEN PT ARIVED TO rm 7 SHE WAS IN MODERATE RESP DISTRESS. sUDDENLY RHER RESP SOUNDS BEGAN TO SOUND WET, BECAME VERY DIAPHORETIC AND BEGAN TO PANIC O2 SATS WERE DROPPING. INFORMED DR MURRAY AND CALLED RT FOR BI-PAP.
[2025-02-20 07:29] LABS: B-Type Natriuretic Peptide 615 pg/mL (0-100)
--- NOTE | 2025-02-20 07:38 | PC.NURSE ---
BP 206/136. NOTIFIED, ORDER FOR MORPHINE GIVEN
[2025-02-20] MEDS: MORPHINE SULF INJ 10 MG/ML VIAL 5 MG IVP (07:50)
[2025-02-20 08:04] LABS: Collection Type, Urine Clean Catch
[2025-02-20 08:15] LABS: Bilirubin,Urine Negative (Negative); Blood,Urine Trace (Negative); Clarity,Urine Turbid (Clear/Hazy); Color,Urine Lt-Yellow (Lt Yel-Yel); Culture Indicated,Urine Not Indicated; Glucose, Urine Negative (Negative); Hyaline Casts,Urine < 1 /hpf (0-1); Ketones,Urine Negative (Negative); Leukocyte Esterase,Urine Negative (Negative); Nitrite,Urine Negative (Negative); Protein,Urine 1+ (Neg - Trace); RBC,Urine 6 /hpf (0-3); Specific Gravity,Urine 1.012 (1.001-1.035); Squamous Epithelial Cell,Urine 6 /hpf (0-5); Urobilinogen,Urine Negative mg/dL (0.0-1.0); WBC,Urine 3 /hpf (0-5)
--- NOTE | 2025-02-20 10:29 | PD.RESHP ---
Documentation for date of: 02/20/25 [facility] History of Present Illness Chief complaint: Shortness of breath History of present illness: Ms. Enciso is a 69-year-old female with past medical history of hypertension, HFpEF (EF 55 to 60% 07/17/24), coronary artery disease status post 4 stent placement and chronic pain who presented to [facility] emergency department on 02/20/2025 with a chief complaint of shortness of breath. While obtaining history patient is on BiPAP, patient is alert and oriented, unable to provide a detailed history as she is on a BiPAP. Per emergency department physician and the patient she missed her home dose Lasix for the last couple of days, patient is on supplemental oxygen at home as well, about 2 L at night. Patient reports no other symptoms currently. Patient reports of mild chest discomfort, troponin was negative in ED. EKG unremarkable. Patient also does have bilateral lower extremity pitting edema, otherwise has no other complaints. Patient also reports using BiPAP at night. Patient used to follow with Dr. Carson In the past, currently patient reports that she sees Dr. Lopez. Patient admitted to the hospital for CHF exacerbation. ED Course: ED Vitals: On presentation blood pressure 215/118, heart rate 112, respiratory rate 31, temp 98.4, O2 sat 90 on room air. ED Labs: ED labs on presentation show hemoglobin 11.3, MCHC 30.8, sodium 133, venous CO2 19.9, bilirubin 1.5, AST 41, alk phos 208, BNP 615. Urine analysis shows urine RBC 6, squamous epithelial cells 6, negative for bacteria. ED Imaging: Chest x-ray in the ED shows mild to moderate heart failure. EKG negative for any acute ST?T changes does show tachycardia. ED Treatment:Patient was given Zofran 4 mg x 2, nitroglycerin patch, Lasix 80 mg x 1 and morphine 3 mg x 1, morphine 5 mg x 1 in the emergency department. Review of Systems Review of Systems Narrative Review of Systems: ROS: -CONSTITUTIONAL: Denies weight loss, fever and chills. -HEENT: Denies changes in vision and hearing. -RESPIRATORY: Positive for shortness of breath -CV: Denies palpitations, positive for Chest Pain. -GI: Denies abdominal pain, nausea, vomiting,constipation and diarrhea. -: Denies dysuria and urinary frequency. -MSK: Denies myalgia and joint pain. -SKIN: Denies rash and pruritus. -NEUROLOGICAL: Denies headache and syncope. -PSYCHIATRIC: Denies recent changes in mood. Denies anxiety and depression. Past Medical History Past Medical History NEUROLOGIC: Positive Head Trauma CARDIAC: Positive Cardiac Disorders, Angina, Heart Murmur, Coronary Artery Disease, Atherosclerotic Heart Disease, Peripheral Vascular Disease, Congestive Heart Failure, Edema, Cellulitis and Hypertension RESPIRATORY: Positive Chronic Obstructive Pulmonary Disease (COPD), Asthma, Pneumonia and Smoking GASTROINTESTINAL: Positive Gastrointestinal Disorders, Hepatitis, Cirrhosis, Gall Bladder Disease (removed), Ulcer, Hiatal Hernia, Hemorrhoids, Gastroesophageal Reflux Disease and Obesity MUSCULOSKELETAL: Positive Musculoskeletal Disorders, Arthritis, Osteoporosis, Degenerative Disk Disease, Scoliosis, Carpal Tunnel Syndrome and Fractures ENT: Positive Head Trauma PSYCHO/SOCIAL: Positive Depression and Anxiety OTHER HISTORY: Positive Hospitalization, Shingles, Falls, Chicken Pox, Measles, Hepatitis A and Hepatitis C Family History FAMILY HISTORY: Positive Family Respiratory Disorders, Family Cardiac Disorders, Family Gastrointestinal Problems, Family Cancer and Family Surgery Surgical History SURGICAL: Positive Cardiac Surgery, Coronary Stent, Angiogram, Abdominal Surgery, Joint Replacement, Arthroscopy and Hysterectomy Social History SMOKING STATUS: Never smoker SECOND HAND EXPOSURE: No SUBSTANCE USE: does not use ALCOHOL: Never Exam Vital Signs Temp Pulse Resp BP Pulse Ox O2 Del Method O2 Flow Rate 96.8 F 104 H 22 H 146/92 H 99 BiPAP 6 02/20/25 10:03 02/20/25 10:03 02/20/25 10:03 02/20/25 10:03 02/20/25 10:03 02/20/25 10:03 02/20/25 06:32 FiO2 100 02/20/25 06:45 Narrative Exam Physical Exam General: Awake and in no acute distress. Conversational and non-toxic appearing. Currently on BiPAP. HEENT: Normocephalic, atraumatic, mucous membranes moist. Heart: Sinus tachycardia and regular rhythm, no murmurs. Lungs: Clear to auscultation with no wheezing or crackles. Decreased sounds due to body habitus. Abdomen: Soft, nondistended, nontender, positive bowel sounds. ?No guarding or rebound tenderness. Neurologic: Alert and oriented x3, no gross neurological deficit, and patient able to move all 4 extremities. Extremities: 3+ bilateral pitting edema, lower extremities. Skin: No rash or ecchymoses. Results: Labs 02/20/25 06:13 02/20/25 06:13 Labs: Short CBC 02/20/25 Range/Units 06:13 WBC 10.9 (3.6-11.0) Thou/mm3 Hgb 11.3 L (12.0-16.0) g/dL Hct 36.7 (36.0-46.0) % Plt Count 384 (140-440) Thou/mm3 BMP 02/20/25 06:13 Sodium 133 L Potassium 4.2 Chloride 100 Carbon Dioxide 19.9 L BUN 22 Creatinine 0.9 Glucose 102 Calcium 9.4 Cardiac Enzymes 02/20/25 Range/Units 06:13 Troponin I 0.039 (0.0-0.045) ng/mL Liver Function 02/20/25 Range/Units 06:13 Total Bilirubin 1.5 H (0.3-1.2) mg/dL AST 41 H (0-34) U/L ALT 25 (10-49) U/L Alkaline Phosphatase 208 H (46-116) U/L Albumin 4.7 (3.4-4.8) gm/dL Urine 02/20/25 Range/Units 07:56 Urine Color Lt-Yellow (Lt Yel-Yel) Urine Clarity Turbid A (Clear/Hazy) Urine pH 6.0 (5.0-7.0) Ur Specific [place] 1.012 (1.001-1.035) Urine Protein 1+ A (Neg - Trace) Urine Glucose (UA) Negative (Negative) Quality Measures Quality Measures none Advance care planning discussed with:: patient Medications Home Medications and Allergies Home Medications ?Medication ?Instructions ?Recorded ?Confirmed ?Type pantoprazole 40 mg tablet,delayed 40 mg PO BID 03/04/22 02/20/25 History release furosemide 40 mg tablet 40 mg PO BID 08/07/23 02/20/25 History sucralfate 100 mg/mL oral 10 ml PO QID PRN pain 08/07/23 02/20/25 History suspension cholecalciferol (vitamin D3) 125 125 mcg PO DAILY 09/10/23 02/20/25 History mcg (5,000 unit) capsule clonidine HCl 0.1 mg tablet 0.1 mg PO BID 09/10/23 02/20/25 History fluoxetine 40 mg capsule 40 mg PO BID 09/10/23 02/20/25 History gabapentin 300 mg capsule 300 mg PO BID 09/10/23 02/20/25 History hydrocodone 10 mg-acetaminophen 1 tab PO Q4HR PRN Pain 09/10/23 08/24/24 History 325 mg tablet clopidogrel 75 mg tablet 75 mg PO 1XD 07/24/24 02/20/25 History Allergies Allergy/AdvReac Type Severity Reaction Status Date / Time hydralazine Allergy Severe Anxiety Verified 08/25/24 05:02 Sulfa (Sulfonamide Allergy Severe Rash Verified 07/24/24 04:10 Antibiotics) Visit Medications Acetaminophen (Acetaminophen 325 Mg Tablet) 650 mg PO Q6H PRN PRN Reason: Pain (1-3) & Fever >100.4 Stop: 03/22/25 10:04 Hydrocodone Bitart/Acetaminophen (Hydrocodone/Apap 5/325 Tablet) 1 tab PO Q4HR PRN PRN Reason: PAIN SCALE 4-10(Mod-Sev Stop: 02/25/25 10:09 Enoxaparin Sodium (Enoxaparin Sod Inj 40 Mg/0.4 Ml Syringe) 40 mg SC QDAY [facility] Stop: 03/07/25 08:59 Furosemide (Furosemide Inj 10 Mg/Ml 4ml Vial) 40 mg IVP BIDD [facility] Stop: 03/22/25 17:59 Gabapentin (Gabapentin 100 Mg Capsule) 300 mg PO BID [facility] Stop: 03/22/25 20:59 Ondansetron HCl (Ondansetron Inj 2 Mg/Ml Inj 2 Ml) 4 mg IV Q6H PRN; Protocol PRN Reason: NAUSEA OR VOMITING Stop: 03/22/25 10:09 Pantoprazole Sodium (Pantoprazole 40 Mg Tablet) 40 mg PO QDAY [facility] Stop: 03/23/25 08:59 Sennosides (Senna Tablet) 2 tab PO QDAY PRN; Protocol PRN Reason: Constipation Stop: 03/23/25 08:59 Discontinued Medications Furosemide (Furosemide Inj 10 Mg/Ml 4ml Vial) 80 mg IVP X1 ONE Stop: 02/20/25 06:30 Last Admin: 02/20/25 06:46 Dose: 80 mg Morphine Sulfate (Morphine Sulf Inj 10 Mg/Ml Vial) 3 mg IVP X1 ONE Stop: 02/20/25 06:30 Last Admin: 02/20/25 06:47 Dose: 3 mg Morphine Sulfate (Morphine Sulf Inj 10 Mg/Ml Vial) 5 mg IVP X1 ONE Stop: 02/20/25 07:41 Last Admin: 02/20/25 07:50 Dose: 5 mg Nitroglycerin (Nitroglycerin Oint 2% 1 Inch Packet) 1 inch TOP X1 ONE Stop: 02/20/25 06:30 Last Admin: 02/20/25 06:47 Dose: 1 inch Ondansetron HCl (Ondansetron Inj 2 Mg/Ml Inj 2 Ml) 4 mg IV X1 ONE; Protocol Stop: 02/20/25 05:49 Last Admin: 02/20/25 06:14 Dose: 4 mg Ondansetron HCl (Ondansetron Inj 2 Mg/Ml Inj 2 Ml) 4 mg IV X1 ONE Stop: 02/20/25 06:30 Last Admin: 02/20/25 07:22 Dose: Not Given Ondansetron HCl (Ondansetron Inj 2 Mg/Ml Inj 2 Ml) 4 mg IV X1 ONE Stop: 02/20/25 07:41 Last Admin: 02/20/25 07:45 Dose: 4 mg Assessment & Plan Plan Assessment and plan: Summary: Ms. Enciso is a 69-year-old female with past medical history of hypertension, HFpEF (EF 55 to 60% 07/17/24), coronary artery disease status post 4 stent placement and chronic pain who presented to [facility] emergency department on 02/20/2025 with a chief complaint of shortness of breath. Patient admitted to the hospital for acute decompensated heart failure. #Acute hypoxic and hypercapnic respiratory failure #Acute decompensated heart failure #Heart failure with preserved ejection fraction (EF 55 to 60%, 07/17/2024) #Obesity hypoventilation syndrome Patient presented to the ED with shortness of breath, Chest x-ray in the ED shows mild to moderate heart failure. BNP 615, 3+ bilateral lower extremity edema. ABG after hours of BiPAP show pH 7.3, pCO2 55, venous CO2 19.9. Patient's baseline venous CO2 around 29 ECHO 07/17/2024: Normal LV size and function. Estimated EF 55-60% Mild RV dilated. Normal RV function. Estimated RVSP 59mmHg. RAP 5. Mild MR, PI. Moderate AI, TR. Mild AV sclerosis without stenosis. Patient received nitroglycerin patch, Lasix 80 mg x 1 and morphine 3 mg x 1, morphine 5 mg x 1 in the emergency department. Plan: - Lasix 40 IV twice daily - Strict intake and output - Continue BiPAP - Fluid restriction 1500 cc - Daily weight - Cardiology consulted, appreciate recommendations #Cardiac chest pain #Coronary artery disease, status post stent placement, by history Patient complains of chest pain, does have history of on and off chest pain in the past. Troponins negative on presentation. EKG negative for any ST?T changes Patient received nitroglycerin patch, Lasix 80 mg x 1 and morphine 3 mg x 1, morphine 5 mg x 1 in the emergency department. Plan -Monitor for chest pain - Consider repeating troponin and EKG as needed #Hypertension Presented with blood pressure 215/118, was given Lasix 80 IV x 1. Blood pressure in the range 1 currently - Pending home med reconciliation, will consider resuming blood pressure medications in a.m. #Hypervolemic hypoosmolar hyponatremia, mild Sodium on presentation 133, osmolality 269, patient hypervolemic -Will continue with diuresis, follow sodium levels in a.m. #Hyperbilirubinemia #Transaminitis #Elevated alk phos Currently patient has no abdominal pain, will continue to monitor, monitor CMP in a.m. #Chronic pain #History of knee pain #Degenerative disc disorder - Started on Geff as needed, resumed home dose gabapentin DVT prophylaxis: Lovenox GI prophylaxis: Protonix p.o. Diet: Cardiac, fluid restriction 1500 cc Lines: Peripheral IV Code status: Full code Case discussed with Attending Dr. Villa and Dr. Peterson PGY3. Sukhdeep Li PGY1 Disclaimer: This note was dictated by speech recognition. Minor errors in developer programmer analyst may be present due to voice recognition software. Attending Provider Attestation/Addendum Patient was seen in ER. She is on BiPAP. She is admitted for CHF exacerbation. She missed her Lasix dose. The patient will see her lard tub washer for evaluation. Monitor electrolytes. Continue cardiac monitoring. RT to reassess need for BiPAP. Will need fluid and salt restriction. Refer to nutrition services.
[2025-02-20 10:37] LABS: Base Excess 0 (-3-3); HCO3 27 mEq/L (20-26); Inspired Oxygen, FIO2 100 %; O2 Saturation 101 % (91-98); PCO2 55 mmHg (32.0-48.0); PO2 227 mmHg (83-108)
[2025-02-20 10:38] LABS: Allen Test Performed/OK; Puncture Site Right Radial
--- NOTE | 2025-02-20 14:07 | ESCONSULT_ITS ---
<Statement entered by Manjit Lopez MD - 02/21/25 08:41> The patient is personally evaluated by me and is very well-known to be followed by me in the office patient history of CAD multiple stent placement most recent 2023 LAD RCA circumflex stents were placed and diagonal branch angioplasty To the hospital shortness of breath chest tightness heaviness continues to slowly improve but still have a lot of shortness with orthopnea definitely fluid retention causing severe shortness of breath recommend diuretic therapy monitor patient is not orthopneic able to lay flat will probably perform coronary angiogram. Nuclear scan in my office showed inferior wall ischemia as well hence patient will require angiogram possibly this admission. Evaluate the patient with resident physician PGY 2 Dr. Rachel Cabezas MD and will continue to monitor the patient closely and possible angiogram next 2 days. HPI Data of Consult Patient: known to practice within the last 3 years Consult date: 02/20/25 Requesting Physician: Morales Villa MD Admitting Provider: Morales Villa MD Attending Provider: Morales Villa MD Primary Care Provider: DANIELE Holcomb Consult Narrative Reason for consult: CHF exacerbation, HFpEF History of present illness: Patient is a 69-year-old female with past medical history of hypertension, hyperlipidemia, HFpEF, CAD s/p PCI x4, COPD on 2L home O2, hepatitis C, and chronic pain who presented to the ED on 02/20/2025 with a chief complaint of shortness of breath starting this morning around 1 am. Patient states that she recently came back from a trip to [facility] and was driving, therefore did not take her Lasix medications as scheduled. Patient reports mild chest discomfort and difficulty breathing. Patient also does have bilateral lower extremity pitting edema, states that the left tends to swell greater than the right. She has an O2 concentrator at home and uses 2L O2 at night and as needed. Patient used to follow with Dr. Perez in the past, last had 2 stents placed in 03/2024 at [facility]. Recently patient reports switching care to Dr. Lopez. Patient had a nuclear stress test done in 12/2024 which showed somewhat abnormal results with evidence of inferior wall ischemia, however echo showed normal EF at 75%. ED workup revealed initial BP 215/118, HR 112, RR 31, Temp 98.4, O2 90% on room air. Labs showed Hgb 11.3, Na 133, CO2 19.9, bilirubin 1.5, AST 41, alk phos 208, BNP 615. Troponin negative at 0.039. CXR showed vascular congestion suggestive of heart failure, EKG showed sinus tachycardia at a rate of [address]-T changes. Patient received Zofran 4 mg x 2, nitroglycerin patch, Lasix 80 mg x 1 and morphine 3 mg x 1, morphine 5 mg x 1 in the ED. Patient admitted to the hospital for CHF exacerbation. Cardiology was consulted in the setting of CHF exacerbation. cc:: cc: Morales Villa MD Past Medical History Past Medical History NEUROLOGIC: Positive Head Trauma CARDIAC: Positive Cardiac Disorders, Angina, Heart Murmur, Coronary Artery Disease, Atherosclerotic Heart Disease, Peripheral Vascular Disease, Congestive Heart Failure, Edema, Cellulitis and Hypertension RESPIRATORY: Positive Chronic Obstructive Pulmonary Disease (COPD), Asthma, Pneumonia and Smoking GASTROINTESTINAL: Positive Gastrointestinal Disorders, Hepatitis, Cirrhosis, Gall Bladder Disease (removed), Ulcer, Hiatal Hernia, Hemorrhoids, Gastroesophageal Reflux Disease and Obesity MUSCULOSKELETAL: Positive Musculoskeletal Disorders, Arthritis, Osteoporosis, Degenerative Disk Disease, Scoliosis, Carpal Tunnel Syndrome and Fractures ENT: Positive Head Trauma PSYCHO/SOCIAL: Positive Depression and Anxiety OTHER HISTORY: Positive Hospitalization, Shingles, Falls, Chicken Pox, Measles, Hepatitis A and Hepatitis C Family History FAMILY HISTORY: Positive Family Respiratory Disorders, Family Cardiac Disorders, Family Gastrointestinal Problems, Family Cancer and Family Surgery Surgical History SURGICAL: Positive Cardiac Surgery, Coronary Stent, Angiogram, Abdominal Surgery, Joint Replacement, Arthroscopy and Hysterectomy Social History SMOKING STATUS: Former smoker SECOND HAND EXPOSURE: No SUBSTANCE USE: does not use ALCOHOL: Current ALCOHOL FREQUENCY: A Few Times a Month Exam Vital Signs Temp Pulse Resp BP Pulse Ox O2 Del Method O2 Flow Rate 97.4 F 101 H 18 144/79 H 94 L Oxy Mask 5 02/20/25 13:30 02/20/25 13:30 02/20/25 13:30 02/20/25 13:30 02/20/25 13:30 02/20/25 13:30 02/20/25 13:30 FiO2 100 02/20/25 11:00 Results Labs 02/21/25 05:29 02/21/25 05:29 Labs: Short CBC 02/20/25 Range/Units 06:13 WBC 10.9 (3.6-11.0) Thou/mm3 Hgb 11.3 L (12.0-16.0) g/dL Hct 36.7 (36.0-46.0) % Plt Count 384 (140-440) Thou/mm3 BMP 02/20/25 06:13 Sodium 133 L Potassium 4.2 Chloride 100 Carbon Dioxide 19.9 L BUN 22 Creatinine 0.9 Glucose 102 Calcium 9.4 Cardiac Enzymes 02/20/25 Range/Units 06:13 Troponin I 0.039 (0.0-0.045) ng/mL Liver Function 02/20/25 Range/Units 06:13 Total Bilirubin 1.5 H (0.3-1.2) mg/dL AST 41 H (0-34) U/L ALT 25 (10-49) U/L Alkaline Phosphatase 208 H (46-116) U/L Albumin 4.7 (3.4-4.8) gm/dL Urine 02/20/25 Range/Units 07:56 Urine Color Lt-Yellow (Lt Yel-Yel) Urine Clarity Turbid A (Clear/Hazy) Urine pH 6.0 (5.0-7.0) Ur Specific [place] 1.012 (1.001-1.035) Urine Protein 1+ A (Neg - Trace) Urine Glucose (UA) Negative (Negative) ABG Interpretation ABG results: 02/20/25 10:31 ABG pH 7.30 L ABG pCO2 55 H ABG pO2 227 H ABG HCO3 27 H ABG O2 Saturation 101 H ABG Base Excess 0 Quality Measures Quality Measures none Advance care planning discussed with:: patient Medications Home Medications and Allergies Home Medications ?Medication ?Instructions ?Recorded ?Confirmed ?Type pantoprazole 40 mg tablet,delayed 40 mg PO BID 2 02/20/25 History release furosemide 40 mg tablet 40 mg PO BID 08/07/23 History sucralfate 100 mg/mL oral 10 ml PO QID PRN pain 02/20/25 History suspension cholecalciferol (vitamin D3) 125 125 mcg PO DAILY 08/2602/20/25 History mcg (5,000 unit) capsule clonidine HCl 0.1 mg tablet 0.1 mg PO BID 09/10/23 History fluoxetine 40 mg capsule 40 mg PO BID 09/10/23 History gabapentin 300 mg capsule 300 mg PO BID 09/10/2302/20 History hydrocodone 10 mg-acetaminophen 1 tab PO Q4HR PRN Pain 09/10/23 08/24/24 History 325 mg tablet clopidogrel 75 mg tablet 75 mg PO 1XD 07/24/24 History Allergies Allergy/AdvReac Type Severity Reaction Status Date / Time hydralazine Allergy Severe Anxiety Verified 08/25/24 05:02 Sulfa (Sulfonamide Allergy Severe Rash Verified 07/24/24 04:10 Antibiotics) Visit Medications Acetaminophen (Acetaminophen 325 Mg Tablet) 650 mg PO Q6H PRN PRN Reason: Pain (1-3) & Fever >100.4 Stop: 03/22/25 10:04 Hydrocodone Bitart/Acetaminophen (Hydrocodone/Apap 5/325 Tablet) 1 tab PO Q4HR PRN PRN Reason: PAIN SCALE 4-10(Mod-Sev Stop: 02/25/25 10:09 Enoxaparin Sodium (Enoxaparin Sod Inj 40 Mg/0.4 Ml Syringe) 40 mg SC QDAY [facility] Stop: 03/07/25 08:59 Furosemide (Furosemide Inj 10 Mg/Ml 4ml Vial) 40 mg IVP BIDD [facility] Stop: 03/22/25 17:59 Gabapentin (Gabapentin 100 Mg Capsule) 300 mg PO BID [facility] Stop: 03/22/25 20:59 Ondansetron HCl (Ondansetron Inj 2 Mg/Ml Inj 2 Ml) 4 mg IV Q6H PRN; Protocol PRN Reason: NAUSEA OR VOMITING Stop: 03/22/25 10:09 Pantoprazole Sodium (Pantoprazole 40 Mg Tablet) 40 mg PO QDAY [facility] Stop: 03/23/25 08:59 Sennosides (Senna Tablet) 2 tab PO QDAY PRN; Protocol PRN Reason: Constipation Stop: 03/23/25 08:59 Discontinued Medications Furosemide (Furosemide Inj 10 Mg/Ml 4ml Vial) 80 mg IVP X1 ONE Stop: 02/20/25 06:30 Last Admin: 02/20/25 06:46 Dose: 80 mg Morphine Sulfate (Morphine Sulf Inj 10 Mg/Ml Vial) 3 mg IVP X1 ONE Stop: 02/20/25 06:30 Last Admin: 02/20/25 06:47 Dose: 3 mg Morphine Sulfate (Morphine Sulf Inj 10 Mg/Ml Vial) 5 mg IVP X1 ONE Stop: 02/20/25 07:41 Last Admin: 02/20/25 07:50 Dose: 5 mg Nitroglycerin (Nitroglycerin Oint 2% 1 Inch Packet) 1 inch TOP X1 ONE Stop: 02/20/25 06:30 Last Admin: 02/20/25 06:47 Dose: 1 inch Ondansetron HCl (Ondansetron Inj 2 Mg/Ml Inj 2 Ml) 4 mg IV X1 ONE; Protocol Stop: 02/20/25 05:49 Last Admin: 02/20/25 06:14 Dose: 4 mg Ondansetron HCl (Ondansetron Inj 2 Mg/Ml Inj 2 Ml) 4 mg IV X1 ONE Stop: 02/20/25 06:30 Last Admin: 02/20/25 07:22 Dose: Not Given Ondansetron HCl (Ondansetron Inj 2 Mg/Ml Inj 2 Ml) 4 mg IV X1 ONE Stop: 02/20/25 07:41 Last Admin: 02/20/25 07:45 Dose: 4 mg Assessment & Plan Plan 69-year-old female with past medical history of hypertension, hyperlipidemia, HFpEF, CAD s/p PCI x4, COPD on 2L home O2, hepatitis C, and chronic pain who presented to the ED on 02/20/2025 with a chief complaint of shortness of breath starting in the morning around 1 am, subsequently admitted for CHF exacerbation secondary to missed medications. Cardiology was consulted for further management and as patient follows with Dr. Lopez in office. #Diastolic congestive heart failure, preserved EF, in acute exacerbation #History of CAD s/p PCI x4 Likely secondary to missed home medications. Patient reports she is on 40 mg Lasix once daily but up to twice daily if there is increased swelling or shortness of breath. Patient denies chest pain at this time. EKG without any changes. -Continue Lasix 40 IV BID -Strict I&Os -Fluid restrictions -Continue aspirin 81 mg qday -Continue clopidogrel 75 mg qday -Will likely plan for cardiac cath on Thursday after patient is adequately diuresed given the recent abnormal Lexiscan test in office #History of hypertension -Continue home medications #History of hyperlipidemia -Continue home statin Cardiology will continue to follow. Patient was discussed with the attending, Dr. Lopez. Thank you for allowing us to participate in the care of this patient. Rachel Cabezas, PGY-2
[2025-02-20] MEDS: FUROSEMIDE INJ 10 MG/ML 4ML VIAL 40 MG IVP (18:50)
[2025-02-20] MEDS: ACETAMINOPHEN 325 MG TABLET 650 MG PO (19:21)
[2025-02-20] MEDS: GABAPENTIN 100 MG CAPSULE 300 MG PO (20:26)
--- NOTE | 2025-02-20 23:15 | PC.NURSE ---
Was notified by patient that she takes clonidine bid at home. When nurse notified patient that she does not have any clonidine ordered for tonight, patient gotten upset. Also, contacted Dr. beal regarding patient blood pressure of 170/82. Per, Dr. beal, he will review the chart and see what he can give the patient for the blood pressure.
[2025-02-20] MEDS: FLUoxetine HCL 10 MG CAPSULE 40 MG PO (23:26)
[2025-02-20] MEDS: LOSARTAN POTASSIUM 25 MG TABLET 50 MG PO (23:27)
--- NOTE | 2025-02-20 23:35 | PC.NURSE ---
Patient home BP medication of losartan and fluoxetene resumed by Dr. Garcia and given to patient.
[2025-02-21] VITALS (17 sets, daily range): BP systolic 122–196; BP diastolic 77–137; PULSE 64–104; RESP 14–22; TEMP 36.2–36.9; O2SAT 90–99; BMI 41.3
[2025-02-21] MEDS: HYDROcodone/APAP 5/325 TABLET 1 TAB PO ×2 (03:54→09:47)
[2025-02-21] MEDS: cloNIDine HCL 0.1 MG TABLET PO ×2 (04:08→20:15)
--- NOTE | 2025-02-21 04:15 | PC.NURSE ---
Notified hospitalist Dr. Garcia and Dr. Jenkins regarding patient's elevated blood pressure of 182/81. Patient is asymptomatic and is showing no sign of any distress. Dr. Garcia ordered a one time dose of patient's home medication clonidine 0.1mg. Patient was given clonidine.
[2025-02-21] MEDS: FUROSEMIDE INJ 10 MG/ML 4ML VIAL 40 MG IVP ×2 (05:11→17:19)
[2025-02-21 05:40] LABS: Basophils % (Auto) 0 % (0-2.5); Eosinophils # (Auto) 0.1 Thou/mm3 (0.0-0.5); Eosinophils % (Auto) 1 % (0-10); Hematocrit 31.4 % (36.0-46.0); Hemoglobin 9.7 g/dL (12.0-16.0); Immature Granulocytes % (Auto) 0 % (0-0); Immature Granulocytes Auto 0.02 Thou/mm3 (0.00-0.00); Lymphocytes # (Auto) 0.3 Thou/mm3 (1.0-4.8); Lymphocytes % (Auto) 3 % (10-50); Mean Corpuscular HGB Conc 30.9 g/dl (31.0-37.0); Mean Corpuscular Hemoglobin 26.3 pg (25.0-35.0); Mean Corpuscular Volume 85 fL (80-100); Monocytes # (Auto) 0.5 Thou/mm3 (0.0-0.8); Monocytes % (Auto) 5 % (0-12); Neutrophils % (Auto) 90 % (37-80); Nucleated Red Blood Cell % 0 /100 WBC (0); Platelet Count 221 Thou/mm3 (140-440); RDW Standard Deviation 53.1 fL (36.4-46.3); Red Blood Count 3.69 Miln/mm3 (4.00-5.20); White Blood Count 8.9 Thou/mm3 (3.6-11.0)
[2025-02-21 05:56] LABS: Glucose Estimated Average 103 mg/dL (80-131); Hemoglobin A1C 5.2 % Hgb (4.8-6.0)
[2025-02-21 06:16] LABS: Ferritin 153 ng/mL (7.3-270.7); Iron 15 mcg/dL (50-170); Percent Iron Saturation 4 % (20-55); Total Iron Binding Capacity 328 mcg/dL (250-425); Unsaturated Iron Binding 313 (225-295)
[2025-02-21 06:56] LABS: Alanine Aminotransferase 167 U/L (10-49); Albumin, Serum 3.7 gm/dL (3.4-4.8); Albumin/Globulin Ratio 1.5 (1.2-2.2); Alkaline Phosphatase 170 U/L (46-116); Anion Gap 8 (7-16); Aspartate Amino Transferase 198 U/L (0-34); BUN/Creatinine Ratio 21 Ratio (12-20); Bilirubin,Total 1.8 mg/dL (0.3-1.2); Blood Urea Nitrogen 23 mg/dL (9-23); Calcium 8.8 mg/dL (8.3-10.6); Carbon Dioxide 29.7 mMol/L (20.0-31.0); Cardiac Risk Estimate 3.1 RATIO (3.7-5.6); Chloride 100 mMol/L (98-107); Cholesterol 89 mg/dL (132-200); Creatinine (Component) 1.1 mg/dL (0.6-1.3); Estimated Creatinine Clearance 64.3 mL/min (>60); Globulin 2.5 gm/dL (2.3-3.5); Glucose 77 mg/dL (74-106); HDL Cholesterol 29 mg/dL (40-60); LDL Cholesterol,Calculated 42 mg/dL (0-130); Magnesium 1.6 mg/dL (1.6-2.6); Osmolality,Calculated 278 (275-295); Phosphorous 3.1 mg/dL (2.4-5.1); Potassium 3.6 mMol/L (3.4-5.1); Sodium 138 mMol/L (136-145); Thyroid Stimulating Hormone 3.74 uIU/mL (0.55-4.78); Total Protein 6.2 gm/dL (5.7-8.2); Triglycerides 88 mg/dL (30-150); eGFR 55 See Note
--- NOTE | 2025-02-21 07:48 | XR_ITS ---
Examination: Abdomen sonogram, Limited Date and time of exam: February 21, 2025 1134 hours INDICATIONS: Elevated liver function on laboratory examination today Technique: Real-time villalobos scale transabdominal sonographic images of the upper abdomen obtained. Findings: Absent gallbladder Common bile duct 0.24 cm Pancreas obscured by bowel gas Liver 19.7 cm lobular contour fatty infiltration Normal hepatopedal portal venous flow Patent IVC IMPRESSION: Normal common bile duct Moderate hepatomegaly primary hepatocellular disease fatty liver
[2025-02-21 09:14] LABS: Hepatitis A Antibody IgM Non Reactive (Non React); Hepatitis B Core Antibody IgM Non Reactive (Non React); Hepatitis B Surface Antigen Non Reactive (Non React); Hepatitis C Antibody Reactive (Non React)
[2025-02-21] MEDS: Magnesium Sulfate 4 GM Ivpb 4 GM/50 ML BAG IV (09:27)
[2025-02-21] MEDS: POTASSIUM CHLORIDE 20 mEq TABCR 40 MEQ PO (09:27)
[2025-02-21] MEDS: GABAPENTIN 100 MG CAPSULE 300 MG PO ×2 (09:28→20:15)
[2025-02-21] MEDS: FLUoxetine HCL 10 MG CAPSULE 40 MG PO ×2 (09:28→20:14)
[2025-02-21] MEDS: LOSARTAN POTASSIUM 25 MG TABLET 50 MG PO ×2 (09:29→20:16)
[2025-02-21] MEDS: ASPIRIN EC 81 MG TABEC PO (09:29)
[2025-02-21] MEDS: PANTOPRAZOLE 40 MG TABLET PO (09:29)
[2025-02-21] MEDS: CLOPIDOGREL BISULFATE 75 MG TABLET PO (09:29)
[2025-02-21] MEDS: ENOXAPARIN SOD INJ 40 MG/0.4 ML SYRINGE SC (09:30)
[2025-02-21] MEDS: SENNA TABLET 2 TAB PO (10:31)
[2025-02-21] MEDS: POLYETHYLENE GLYCOL 17 GM PACKET PO (10:31)
--- NOTE | 2025-02-21 14:22 | PD.RESPRO ---
Documentation for date of: 02/21/25 Subjective Subjective Interval history: Patient seen and examined at bedside. Patient on IV diuresis, -3.2 L overnight. Patient's weight decreased from 117.9 to 116.3. Will continue with IV diuresis. Patient had abnormal Lexiscan outpatient, cardiology plans to schedule patient for cardiac catheterization in a.m. Will keep patient n.p.o. after midnight. Patient's transaminitis and bilirubin trending upwards, ordered hepatitis panel and right upper quadrant ultrasound Exam Vital Signs Temp Pulse Resp BP Pulse Ox O2 Del Method O2 Flow Rate 97.9 F 98 18 155/81 H 93 L Nasal Cannula 3 02/21/25 12:00 02/21/25 12:00 02/21/25 12:00 02/21/25 12:00 02/21/25 12:00 02/21/25 12:00 02/21/25 12:00 FiO2 100 02/20/25 11:00 Narrative Exam Physical Exam General: Awake and in no acute distress. Conversational and non-toxic appearing. On supplemental nasal cannula 3 L. HEENT: Normocephalic, atraumatic, mucous membranes moist. Heart: Sinus and regular rhythm, no murmurs. Lungs: Bilateral crackles. Decreased sounds due to body habitus. Abdomen: Soft, nondistended, nontender, positive bowel sounds. ?No guarding or rebound tenderness. Neurologic: Alert and oriented x3, no gross neurological deficit, and patient able to move all 4 extremities. Extremities: 2+ bilateral pitting edema, lower extremities. Skin: No rash or ecchymoses. Objective Labs 02/22/25 05:46 02/22/25 05:46 Labs: Laboratory Results - last 24 hr 02/21/25 05:29 WBC 8.9 RBC 3.69 L Hgb 9.7 L Hct 31.4 L MCV 85 MCH 26.3 MCHC 30.9 L RDW Std Deviation 53.1 H Plt Count 221 D Neut % (Auto) 90 H Lymph % (Auto) 3 L [place] % (Auto) 5 Eos % (Auto) 1 Baso % (Auto) 0 Neut # (Auto) 8.0 H Lymph # (Auto) 0.3 L [place] # (Auto) 0.5 Eos # (Auto) 0.1 Baso # (Auto) 0.0 Immature Gran # (Auto) 0.02 H Absolute Nucleated RBC 0.00 Immature Gran % 0 Nucleated RBC % 0 Sodium 138 Potassium 3.6 D Chloride 100 Carbon Dioxide 29.7 Anion Gap 8 BUN 23 Creatinine 1.1 Estim Creat Clear Calc 64.3 eGFR 55 L BUN/Creatinine Ratio [address] Glu mg/dL 103 Hemoglobin A1c 5.2 Calculated Osmolality 278 Calcium 8.8 Corrected Calcium 9.0 Phosphorus 3.1 Magnesium 1.6 Iron 15 L TIBC 328 Iron Saturation 4 L Unsat Iron Binding 313 H Ferritin 153 Total Bilirubin 1.8 H AST 198 H ALT 167 H Alkaline Phosphatase 170 H D Total Protein 6.2 Albumin 3.7 D Globulin 2.5 Albumin/Globulin Ratio 1.5 Triglycerides 88 Cholesterol 89 L LDL Cholesterol, Calc 42 HDL Cholesterol 29 L Cholesterol/HDL Ratio 3.1 L TSH 3.74 Hepatitis A IgM Ab Non Reactive Hep Bs Antigen Non Reactive Hep B Core IgM Ab Non Reactive Hepatitis C Antibody Reactive A ABG Interpretation ABG results: 02/20/25 10:31 ABG pH 7.30 L ABG pCO2 55 H ABG pO2 227 H ABG HCO3 27 H ABG O2 Saturation 101 H ABG Base Excess 0 Quality Measures Quality Measures none Advance care planning discussed with:: patient Assessment & Plan Assessment Current Active Medications: Generic Name Dose Route Start Last Admin Trade Name Freq PRN Reason Stop Dose Admin Acetaminophen 650 mg 02/20/25 10:05 02/20/25 19:21 Acetaminophen 325 Mg Tablet PO 03/22/25 10:04 650 mg Q6H PRN Administration Pain (1-3) & Fever >100.4 Hydrocodone Bitart/Acetaminophen 1 tab 02/20/25 10:10 02/21/25 09:47 Hydrocodone/Apap 5/325 Tablet PO 02/25/25 10:09 1 tab Q4HR PRN Administration PAIN SCALE 4-10(Mod-Sev Aspirin 81 mg 02/21/25 09:00 02/21/25 09:29 Aspirin Ec 81 Mg Tabec PO 03/23/25 08:59 81 mg QDAY LAMINE Administration Clonidine 0.1 mg 02/21/25 21:00 Clonidine Hcl 0.1 Mg Tablet PO 03/23/25 20:59 BID LAMINE Clopidogrel Bisulfate 75 mg 02/21/25 09:00 02/21/25 09:29 Clopidogrel Bisulfate 75 Mg Tablet PO 03/23/25 08:59 75 mg QDAY LAMINE Administration Enoxaparin Sodium 40 mg 02/21/25 09:00 02/21/25 09:30 Enoxaparin Sod Inj 40 Mg/0.4 Ml Syringe SC 03/07/25 08:59 40 mg QDAY LAMINE Administration Fluoxetine HCl 40 mg 02/20/25 23:30 02/21/25 09:40 Fluoxetine Hcl 10 Mg Capsule PO 03/22/25 23:29 Not Given BID LAMINE Furosemide 40 mg 02/20/25 18:00 02/21/25 05:11 Furosemide Inj 10 Mg/Ml 4ml Vial IVP 03/22/25 17:59 40 mg BIDD LAMINE Administration Gabapentin 300 mg 02/20/25 21:00 02/21/25 09:28 Gabapentin 100 Mg Capsule PO 03/22/25 20:59 300 mg BID LAMINE Administration Losartan Potassium 50 mg 02/20/25 23:30 02/21/25 09:29 Losartan Potassium 25 Mg Tablet PO 03/22/25 23:29 50 mg BID LAMINE Administration Ondansetron HCl 4 mg 02/20/25 10:10 Ondansetron Inj 2 Mg/Ml Inj 2 Ml IV 03/22/25 10:09 Q6H PRN NAUSEA OR VOMITING Protocol Pantoprazole Sodium 40 mg 02/21/25 09:00 02/21/25 09:29 Pantoprazole 40 Mg Tablet PO 03/23/25 08:59 40 mg QDAY LAMINE Administration Polyethylene Glycol 17 gm 02/21/25 09:45 02/21/25 10:31 Polyethylene Glycol 17 Gm Packet PO 03/23/25 09:44 17 gm QDAY LAMINE Administration Sennosides 2 tab 02/21/25 09:45 02/21/25 10:31 Senna Tablet PO 03/23/25 09:44 2 tab QDAY LAMINE Administration Protocol Sucralfate 1 gm 02/21/25 07:38 Sucralfate Susp 1 Gm/10 Ml Udc PO 03/23/25 07:37 QID PRN PAIN Protocol Plan Assessment and plan: Summary: Ms. Enciso is a 69-year-old female with past medical history of hypertension, HFpEF (EF 55 to 60% 07/17/24), coronary artery disease status post 4 stent placement and chronic pain who presented to [facility] emergency department on 02/20/2025 with a chief complaint of shortness of breath. Patient admitted to the hospital for acute decompensated heart failure. #Acute hypoxic and hypercapnic respiratory failure #Acute decompensated heart failure #Heart failure with preserved ejection fraction (EF 55 to 60%, 07/17/2024) #Obesity hypoventilation syndrome Patient presented to the ED with shortness of breath, Chest x-ray in the ED shows mild to moderate heart failure. BNP 615, 3+ bilateral lower extremity edema. ABG after hours of BiPAP show pH 7.3, pCO2 55, venous CO2 19.9. Patient's baseline venous CO2 around 29 ECHO 07/17/2024: Normal LV size and function. Estimated EF 55-60% Mild RV dilated. Normal RV function. Estimated RVSP 59mmHg. RAP 5. Mild MR, PI. Moderate AI, TR. Mild AV sclerosis without stenosis. Patient received nitroglycerin patch, Lasix 80 mg x 1 and morphine 3 mg x 1, morphine 5 mg x 1 in the emergency department. 02/21/25: -3.2 L, weight 117.9 to 116.3 Plan: - Lasix 40 IV twice daily - Strict intake and output - Continue BiPAP at bedtime - Fluid restriction 1500 cc - Pending echocardiogram - Daily weight - Cardiology consulted, appreciate recommendations #Cardiac chest pain #Coronary artery disease, status post stent placement, by history Patient complains of chest pain, does have history of on and off chest pain in the past. Troponins negative on presentation. EKG negative for any ST?T changes Patient received nitroglycerin patch, Lasix 80 mg x 1 and morphine 3 mg x 1, morphine 5 mg x 1 in the emergency department. Patient had abnormal Lexiscan outpatient Plan -Scheduled for cardiac catheterization in a.m., n.p.o. after midnight -Continue aspirin and Plavix -Cardiology consulted, appreciate recommendations #Hypertension Presented with blood pressure 215/118, was given Lasix 80 IV x 1. - Continue home dose losartan 50 mg twice daily and clonidine 0.1 mg twice daily #Hyperbilirubinemia #Transaminitis #Elevated alk phos Uptrending bilirubin, ALT AST and alk phos - Ordered liver ultrasound - Ordered hepatitis panel #Chronic pain #History of knee pain #Degenerative disc disorder # Depression - Started on [place] as needed, resumed home dose gabapentin - Continue fluoxetine home dose #Normocytic normochromic anemia #Iron deficiency anemia -Monitor CBC in a.m. -Will consider discharging patient on p.o. iron #Hypervolemic hypoosmolar hyponatremia, resolved DVT prophylaxis: Lovenox GI prophylaxis: Protonix p.o. Diet: Cardiac, fluid restriction 1500 cc Lines: Peripheral IV Code status: Full code Case discussed with Attending Dr. Tee and Dr. Peterson PGY3. Sukhdeep Li PGY1 Disclaimer: This note was dictated by speech recognition. Minor errors in recreation professor may be present due to voice recognition software. I discussed with and supervised the general internal medicine physician physician who took care of this patient. I personally saw and examined the patient and discussed the assessment and plan with the entire medicine team, including my attending Dr. Randal TILLMAN. I agree with the assessment and plan as documented above. Patient interviewed and examined at bedside this a.m. No acute overnight events. Patient had approximately 3.2 L of urine output since admission. Will continue diuresing as treatment for CHF exacerbation. Per cardiology recommendations, due to a abnormal nuclear Lexiscan test that the patient had previously had as an outpatient, recommend to perform an angiogram scheduled for 02/22/2025. Will keep the patient n.p.o. at midnight and hold lovenox PPX for impending angiogram. Patient's CMP also notable for elevated transaminitis with LFTs 3x the upper limit of normal for which we will obtain a hepatitis panel and liver u/s. Dimitrios Peterson M.D. Internal Medicine PGY-3 Attending Provider Attestation/Addendum I have examined the patient, reviewed labs and imaging findings, discussed the case with the resident(s), and reviewed entered orders. I agree with the plan of care as outlined in this note, with these additional summaries/recommendations: Patient seen at bedside. No acute overnight events. Today patient reports improvement in her shortness of breath. She is still requiring 3 L nasal cannula and will continue to wean as tolerated. Continue diuresis and fluid restriction for CHF exacerbation. Rashid catheter in place. Net -1.2 L for the last 24 hours. Cardiology following with plans for cardiac catheterization tomorrow 02/22/2025. Minimal transaminitis and hyperbilirubinemia present. Possibly secondary to congestive hepatopathy versus medication induced. Liver ultrasound showed normal CBD and moderate hepatomegaly. Continue to avoid hepatotoxic agents. Patient updated on the plan and in agreement. Repeat hematology and chemistry panel in AM. N.p.o. after midnight. Dr. Randal MD
[2025-02-21] MEDS: LABETALOL INJ 5 MG/ML VIAL 20 ML 10 MG IVP (17:18)
[2025-02-21] MEDS: ONDANSETRON INJ 2 MG/ML INJ 2 ML 4 MG IV (17:35)
[2025-02-21] MEDS: guaiFENesin SYRUP 200 MG/10 ML UDC PO (20:14)
[2025-02-21] MEDS: MELATONIN 3 MG TABLET PO (20:15)
--- NOTE | 2025-02-21 21:40 | ESPR_ITS ---
<Statement entered by Manjit Lopez MD - 02/22/25 18:10> I personally examined evaluated the patient with resident physician PGY [address] Dr[address] Vivi Cabezas, PGY 2 and appears to be doing better but she still has a lot of shortness of breath fatigue and orthopnea will probably wait another day or 2 for angiogram may even require angiogram as outpatient note and the evaluations no need to be decided to do angiogram patient should be continued on diuretic therapy and heart failure management for now. Documentation for date of: 02/21/25 Subjective Subjective Interval history: No acute events overnight.?Patient seen and examined at bedside this afternoon, reported still having difficulty breathing with chest pressure. She has had good urine output about 5L over last 24 hours with a net negative of about -3 L. She continues to abide by fluid restrictions. States that she is feeling slightly better but still having cough with phelgm.?Will hold off on cath for now. Continue with diuresis until patient more comfortable with laying flat. May need to postpone to outpatient if need be. Labs and vitals were reviewed. BP has been variably elevated 148/88 to 196/137. Home clonidine is resumed. Review of systems otherwise negative except what is mentioned above. Exam Vital Signs Temp Pulse Resp BP Pulse Ox O2 Del Method O2 Flow Rate 98.5 F 104 H 18 122/79 90 L Nasal Cannula 3 02/21/25 20:00 02/21/25 20:16 02/21/25 20:00 02/21/25 20:16 02/21/25 20:00 02/21/25 20:00 02/21/25 20:00 FiO2 100 02/20/25 11:00 Narrative Exam Physical Exam General: Awake and in no acute distress. Conversational and non-toxic appearing. HEENT: Normocephalic, atraumatic, mucous membranes moist. On 3L NC. Heart: Regular rate and rhythm, normal S1 and S2, no murmurs. Lungs: Crackles throughout all lung stacy. Abdomen: Soft, obese, nondistended, nontender, positive bowel sounds. ?No guarding or rebound tenderness. Neurologic: Alert and oriented x3, no gross neurological deficit, and patient able to move all 4 extremities. Extremities: 2+ bilateral lower extremity edema, L>R Skin: No rash or ecchymoses. Objective Labs 02/21/25 05:29 02/21/25 05:29 Labs: Laboratory Results - last 24 hr 02/21/25 05:29 WBC 8.9 RBC 3.69 L Hgb 9.7 L Hct 31.4 L MCV 85 MCH 26.3 MCHC 30.9 L RDW Std Deviation 53.1 H Plt Count 221 D Neut % (Auto) 90 H Lymph % (Auto) 3 L [place] % (Auto) 5 Eos % (Auto) 1 Baso % (Auto) 0 Neut # (Auto) 8.0 H Lymph # (Auto) 0.3 L [place] # (Auto) 0.5 Eos # (Auto) 0.1 Baso # (Auto) 0.0 Immature Gran # (Auto) 0.02 H Absolute Nucleated RBC 0.00 Immature Gran % 0 Nucleated RBC % 0 Sodium 138 Potassium 3.6 D Chloride 100 Carbon Dioxide 29.7 Anion Gap 8 BUN 23 Creatinine 1.1 Estim Creat Clear Calc 64.3 eGFR 55 L BUN/Creatinine Ratio 21 [address]ucose [address] Glu mg/dL 103 Hemoglobin A1c 5.2 Calculated Osmolality 278 Calcium 8.8 Corrected Calcium 9.0 Phosphorus 3.1 Magnesium 1.6 Iron 15 L TIBC 328 Iron Saturation 4 L Unsat Iron Binding 313 H Ferritin 153 Total Bilirubin 1.8 H AST 198 H ALT 167 H Alkaline Phosphatase 170 H D Total Protein 6.2 Albumin 3.7 D Globulin 2.5 Albumin/Globulin Ratio 1.5 Triglycerides 88 Cholesterol 89 L LDL Cholesterol, Calc 42 HDL Cholesterol 29 L Cholesterol/HDL Ratio 3.1 L TSH 3.74 Hepatitis A IgM Ab Non Reactive Hep Bs Antigen Non Reactive Hep B Core IgM Ab Non Reactive Hepatitis C Antibody Reactive A ABG Interpretation ABG results: 02/20/25 10:31 ABG pH 7.30 L ABG pCO2 55 H ABG pO2 227 H ABG HCO3 27 H ABG O2 Saturation 101 H ABG Base Excess 0 Quality Measures Quality Measures none Advance care planning discussed with:: patient Assessment & Plan Assessment Current Active Medications: Generic Name Dose Route Start Last Admin Trade Name Freq PRN Reason Stop Dose Admin Acetaminophen 650 mg 02/20/25 10:05 02/20/25 19:21 Acetaminophen 325 Mg Tablet PO 03/22/25 10:04 650 mg Q6H PRN Administration Pain (1-3) & Fever >100.4 Hydrocodone Bitart/Acetaminophen 1 tab 02/20/25 10:10 02/21/25 09:47 Hydrocodone/Apap 5/325 Tablet PO 02/25/25 10:09 1 tab Q4HR PRN Administration PAIN SCALE 4-10(Mod-Sev Aspirin 81 mg 02/21/25 09:00 02/21/25 09:29 Aspirin Ec 81 Mg Tabec PO 03/23/25 08:59 81 mg QDAY LAMINE Administration Clonidine 0.1 mg 02/21/25 21:00 02/21/25 20:15 Clonidine Hcl 0.1 Mg Tablet PO 03/23/25 20:59 0.1 mg BID LAMINE Administration Clopidogrel Bisulfate 75 mg 02/21/25 09:00 02/21/25 09:29 Clopidogrel Bisulfate 75 Mg Tablet PO 03/23/25 08:59 75 mg QDAY LAMINE Administration Enoxaparin Sodium 40 mg 02/21/25 09:00 02/21/25 09:30 Enoxaparin Sod Inj 40 Mg/0.4 Ml Syringe SC 03/07/25 08:59 40 mg QDAY LAMINE Administration Fluoxetine HCl 40 mg 02/20/25 23:30 02/21/25 20:14 Fluoxetine Hcl 10 Mg Capsule PO 03/22/25 23:29 40 mg BID LAMINE Administration Furosemide 40 mg 02/20/25 18:00 02/21/25 17:19 Furosemide Inj 10 Mg/Ml 4ml Vial IVP 03/22/25 17:59 40 mg BIDD LAMINE Administration Gabapentin 300 mg 02/20/25 21:00 02/21/25 20:15 Gabapentin 100 Mg Capsule PO 03/22/25 20:59 300 mg BID LAMINE Administration Losartan Potassium 50 mg 02/20/25 23:30 02/21/25 20:16 Losartan Potassium 25 Mg Tablet PO 03/22/25 23:29 50 mg BID LAMINE Administration Ondansetron HCl 4 mg 02/20/25 10:10 02/21/25 17:35 Ondansetron Inj 2 Mg/Ml Inj 2 Ml IV 03/22/25 10:09 4 mg Q6H PRN Administration NAUSEA OR VOMITING Protocol Pantoprazole Sodium 40 mg 02/21/25 09:00 02/21/25 09:29 Pantoprazole 40 Mg Tablet PO 03/23/25 08:59 40 mg QDAY LAMINE Administration Polyethylene Glycol 17 gm 02/21/25 09:45 02/21/25 10:31 Polyethylene Glycol 17 Gm Packet PO 03/23/25 09:44 17 gm QDAY LAMINE Administration Sennosides 2 tab 02/21/25 09:45 02/21/25 10:31 Senna Tablet PO 03/23/25 09:44 2 tab QDAY LAMINE Administration Protocol Sucralfate 1 gm 02/21/25 07:38 Sucralfate Susp 1 Gm/10 Ml Udc PO 03/23/25 07:37 QID PRN PAIN Protocol Plan 69-year-old female with past medical history of hypertension, hyperlipidemia, HFpEF, CAD s/p PCI x4, COPD on 2L home O2, hepatitis C, and chronic pain who presented to the ED on 02/20/2025 with a chief complaint of shortness of breath starting in the morning around 1 am, subsequently admitted for CHF exacerbation secondary to missed medications. Cardiology was consulted for further management and as patient follows with Dr. Lopez in office. #Diastolic congestive heart failure, preserved EF, in acute exacerbation #History of CAD s/p PCI x4 Likely secondary to missed home medications. Patient reports she is on 40 mg Lasix once daily but up to twice daily if there is increased swelling or shortness of breath. Patient denies chest pain at this time. EKG without any changes. Patient had a nuclear stress test done in 12/2024 which showed somewhat abnormal results with evidence of inferior wall ischemia, however echo showed normal EF at 75%. -Continue Lasix 40 IV BID -Strict I&Os -Fluid restrictions -Continue aspirin 81 mg qday -Continue clopidogrel 75 mg qday -Cardiac cath will be postponed for now until patient has improved symptomatic relief, able to lay flat #History of hypertension -Continue home medications, losartan and clonidine #History of hyperlipidemia -Continue home statin Cardiology will continue to follow. Patient was discussed with the attending, Dr. Lopez. Thank you for allowing us to participate in the care of this patient. Rachel Cabezas, PGY-2
[2025-02-22] VITALS (17 sets, daily range): BP systolic 133–189; BP diastolic 43–107; PULSE 60–105; RESP 12–22; TEMP 35.9–37.3; O2SAT 94–99; BMI 40.8
--- NOTE | 2025-02-22 04:31 | PC.NURSE ---
Notified Dr. Sahu regarding patient's elevated blood pressure.
[2025-02-22] MEDS: FUROSEMIDE INJ 10 MG/ML 4ML VIAL 40 MG IVP ×2 (05:17→17:24)
[2025-02-22 05:57] LABS: Basophils % (Auto) 0 % (0-2.5); Eosinophils % (Auto) 1 % (0-10); Hematocrit 30.9 % (36.0-46.0); Hemoglobin 9.7 g/dL (12.0-16.0); Immature Granulocytes % (Auto) 0 % (0-0); Immature Granulocytes Auto 0.02 Thou/mm3 (0.00-0.00); Lymphocytes # (Auto) 0.6 Thou/mm3 (1.0-4.8); Lymphocytes % (Auto) 11 % (10-50); Mean Corpuscular HGB Conc 31.4 g/dl (31.0-37.0); Mean Corpuscular Hemoglobin 26.3 pg (25.0-35.0); Mean Corpuscular Volume 84 fL (80-100); Monocytes # (Auto) 0.4 Thou/mm3 (0.0-0.8); Monocytes % (Auto) 8 % (0-12); Neutrophils # (Auto) 4.3 Thou/mm3 (1.8-7.7); Neutrophils % (Auto) 80 % (37-80); Nucleated Red Blood Cell % 0 /100 WBC (0); Platelet Count 217 Thou/mm3 (140-440); RDW Standard Deviation 53.5 fL (36.4-46.3); Red Blood Count 3.69 Miln/mm3 (4.00-5.20); White Blood Count 5.4 Thou/mm3 (3.6-11.0)
[2025-02-22 06:39] LABS: Alanine Aminotransferase 262 U/L (10-49); Albumin, Serum 3.8 gm/dL (3.4-4.8); Albumin/Globulin Ratio 1.5 (1.2-2.2); Alkaline Phosphatase 167 U/L (46-116); Anion Gap 11 (7-16); Aspartate Amino Transferase 257 U/L (0-34); BUN/Creatinine Ratio 20 Ratio (12-20); Bilirubin,Total 1.7 mg/dL (0.3-1.2); Blood Urea Nitrogen 18 mg/dL (9-23); Calcium 8.6 mg/dL (8.3-10.6); Calcium (Corrected) 8.8 mg/dL (8.5-10.1); Carbon Dioxide 28.7 mMol/L (20.0-31.0); Chloride 96 mMol/L (98-107); Creatinine (Component) 0.9 mg/dL (0.6-1.3); Globulin 2.6 gm/dL (2.3-3.5); Glucose 105 mg/dL (74-106); Magnesium 1.9 mg/dL (1.6-2.6); Osmolality,Calculated 273 (275-295); Phosphorous 3.1 mg/dL (2.4-5.1); Potassium 3.4 mMol/L (3.4-5.1); Sodium 136 mMol/L (136-145); Total Protein 6.4 gm/dL (5.7-8.2); eGFR > 60 See Note
[2025-02-22 07:33] LABS: INR 1.2 (0.9-1.3); Partial Thromboplastin Time 32.4 Seconds (22.0-36.0); Prothrombin Time 12.9 Seconds (9.0-12.2)
[2025-02-22] MEDS: MORPHINE SULF INJ 10 MG/ML VIAL 2 MG IVP (09:17)
[2025-02-22] MEDS: Magnesium Sulfate 2 GM Ivpb 2 GM/50 ML BAG IV (09:17)
--- NOTE | 2025-02-22 09:19 | PC.SS ---
Follow up note: Cardio recommendations pending. Liver enzymes are up. IV diuresis. Pt will return back to home.
[2025-02-22] MEDS: SENNA TABLET 2 TAB PO (09:20)
[2025-02-22] MEDS: amLODIPine BESYLATE 5 MG TABLET PO (09:21)
[2025-02-22] MEDS: POLYETHYLENE GLYCOL 17 GM PACKET PO (09:21)
[2025-02-22] MEDS: FLUoxetine HCL 10 MG CAPSULE 40 MG PO ×2 (09:21→20:58)
[2025-02-22] MEDS: LOSARTAN POTASSIUM 25 MG TABLET 50 MG PO ×2 (09:21→20:58)
[2025-02-22] MEDS: cloNIDine HCL 0.1 MG TABLET PO ×3 (09:21→21:00)
[2025-02-22] MEDS: ASPIRIN EC 81 MG TABEC PO (09:22)
[2025-02-22] MEDS: GABAPENTIN 100 MG CAPSULE 300 MG PO ×2 (09:22→20:59)
[2025-02-22] MEDS: PANTOPRAZOLE 40 MG TABLET PO (09:22)
[2025-02-22] MEDS: POTASSIUM CHLORIDE 20 mEq TABCR 40 MEQ PO (09:22)
[2025-02-22] MEDS: CLOPIDOGREL BISULFATE 75 MG TABLET PO (09:22)
[2025-02-22] MEDS: ENOXAPARIN SOD INJ 40 MG/0.4 ML SYRINGE SC (09:22)
[2025-02-22] MEDS: guaiFENesin SYRUP 200 MG/10 ML UDC PO (09:31)
--- NOTE | 2025-02-22 10:14 | ECHO_ITS ---
Transthoracic Echo Report Ht (in): 66 Wt (lb): 252 Exam Location: [facility] Status: Inpatient Billing Rep: RUSSELL Zheng^^^^ Indications: Procedure Performed: BP: / HR: 61 Technical Quality: Fair MEASUREMENTS (Male / Female) Normal Values 2D ECHO LV Diastolic Diameter PLAX 5.7 cm 4.2 - 5.9 / 3.9 - 5.3 cm IVS Diastolic Thickness 1.1 cm 0.6 - 1.0 / 0.6 - 0.9 cm LVPW Diastolic Thickness 1.3 cm 0.6 - 1.0 / 0.6 - 0.9 cm LV Relative Wall Thickness 0.4 LVOT Diameter 1.9 cm Aortic Root Diameter 3.2 cm LA Systolic Diameter LX 4.3 cm 3.0 - 4.0 / 2.7 - 3.8 cm LA Volume Index 37.9 cm?/m? 16 - 28 cm?/m? Ascending Aorta Diameter 2.9 cm DOPPLER AV Peak Velocity 162.0 cm/s AV Peak Gradient 10.5 mmHg AV Mean Gradient 5.5 mmHg AV Velocity Time Integral 33.2 cm AI Peak Velocity 377.0 cm/s AI Peak Gradient 56.9 mmHg AI Pressure Half Time 683.5 ms LVOT Peak Velocity 117.0 cm/s LVOT Peak Gradient 5.5 mmHg LVOT Velocity Time Integral 26.1 cm LVOT Cardiac Index 1910.0 cm?/min?m? AV Area Cont Eq vti 2.2 cm? AV Area Cont Eq pk 2.0 cm? MV Area PHT 5.0 cm? Mitral E Point Velocity 72.5 cm/s Mitral A Point Velocity 37.6 cm/s Mitral E to A Ratio 1.9 LV E' Lateral Velocity 2.9 cm/s Mitral E to LV E' Lateral Ratio 25.3 LV E' Septal Velocity 5.5 cm/s Mitral E to LV E' Septal Ratio 13.2 TR Peak Velocity 311.7 cm/s TR Peak Gradient 38.9 mmHg PV Peak Velocity 115.5 cm/s PV Peak Gradient 5.3 mmHg RVOT Peak Velocity 59.9 cm/s FINDINGS Left Ventricle Normal left ventricular size, wall thickness, systolic function with no obvious regional wall motion abnormalities. There is grade II diastolic dysfunction of the left ventricle (pseudonormal filling pattern). The ejection fraction is visually estimated at 55 %. Right Ventricle The right ventricle is normal in size and systolic function. The estimated right ventricular systolic pressure, 50 mmHg. Left Atrium The left atrial cavity size is mildly increased. Right Atrium The right atrium is normal by two-dimensional imaging, color flow and Doppler imaging with no structural abnormalities, no thrombus formation present. Atrial Septum The interatrial septum appears normal with no evidence of a shunt. Aorta The aorta is normal by two-dimensional, color flow and Doppler interrogation. Mitral Valve Mild mitral regurgitation. Mild mitral annular calcification. Aortic Valve Diffuse calcification of the aortic valve. Aortic valve sclerosis. Mild aortic valve regurgitation. Tricuspid Valve There is mild to moderate tricuspid valve regurgitation. Pulmonic Valve Trivial pulmonic valve regurgitation. Vessels The pulmonary artery appears normal. The inferior vena cava pulmonary and hepatic veins appear normal. Pericardium There is a small pericardial effusion. CONCLUSIONS indication: CHF exacerbation The transthoracic study is normal by two-dimensional, color flow imaging and Doppler interrogation. Normal left ventricular size and function. Approximate ejection fraction is 55%. RV appears normal with RVSP elevated 50 mmHg LA is mildly dilated Mild MR Moderate TR AOV sclerosis no stenosis small pericardial effusion Lanette Benz (Electronically Signed) Final Date: 22 February 2025 17:11
--- NOTE | 2025-02-22 12:34 | PC.SS ---
SS met with patient and her friend regarding patient's d/c plan.? Pt is alert/oriented.? Pt was admitted for CHF Exacerbation.? Pt confirmed demographic and contact information is correct on facesheet.? Pt resides alone.? Pt states she has reserved a place to stay at the [facility].? Pt states she is not homeless.? Pt ambulates independently without assistance or DME.? Pt is ok with all ADLs.? Pt states she uses [employer] one oxygen concentrator and has portable O2.? Pt named her ex Gemini Ordoñez medical decision maker if she is unable.? SS provided verbal options for d/c to home or SNF.? Pt refused SNF and her choice is to return [facility] at d/c.? Pt states she is not diabetic and is not on dialysis.? Pt states she followed up with PCP last by phone and next appointment is February 27, 2025. D/C plan:? Return to [facility] Next of Kin:? ?Gemini Ordoñez, ex , phone# [phone] PCP:? Dr. Julianna Yoon Address:? Correct on facesheet
--- NOTE | 2025-02-22 14:19 | PD.RESPRO ---
Documentation for date of: 02/22/25 Subjective Subjective Interval history: Patient seen and examined at bedside. Patient is -1.5 L in the last 24 hours, weight decreased to 114.7. Patient was taken to cardiac Crimp Setter, unable to lie flat, cardiac cath postponed by Dr. Lopez as patient is still symptomatic. Patient complaining of back pain, increased hydrocodone to 10 for moderate to severe pain, use morphine for breakthrough pain. Patient started on amlodipine 5 mg, uptitrate clonidine to 3 times a day 0.1 mg. Ordered hepatitis C virus viral load, AST ALT uptrending. Liver ultrasound did show underlying hepatocellular disease. Will continue with IV diuresis, wean off patient off supplemental oxygen. Exam Vital Signs Temp Pulse Resp BP Pulse Ox O2 Del Method O2 Flow Rate 97.0 F 66 17 138/77 H 98 Nasal Cannula 3 02/22/25 08:30 02/22/25 13:19 02/22/25 08:30 02/22/25 13:19 02/22/25 08:30 02/22/25 08:30 02/22/25 08:30 FiO2 50 02/22/25 00:35 Narrative Exam Physical Exam General: Awake and in no acute distress. Conversational and non-toxic appearing. On supplemental nasal cannula 3 L. HEENT: Normocephalic, atraumatic, mucous membranes moist. Heart: Sinus and regular rhythm, no murmurs. Lungs: Bilateral crackles. Decreased sounds due to body habitus. Abdomen: Soft, nondistended, nontender, positive bowel sounds. ?No guarding or rebound tenderness. Neurologic: Alert and oriented x3, no gross neurological deficit, and patient able to move all 4 extremities. Extremities: 2+ bilateral pitting edema, lower extremities. Skin: No rash or ecchymoses. Objective Labs 02/23/25 04:45 02/23/25 04:45 Labs: Laboratory Results - last 24 hr 02/22/25 05:46 WBC 5.4 RBC 3.69 L Hgb 9.7 L Hct 30.9 L MCV 84 MCH 26.3 MCHC 31.4 RDW Std Deviation 53.5 H Plt Count 217 Neut % (Auto) 80 Lymph % (Auto) 11 [place] % (Auto) 8 Eos % (Auto) 1 Baso % (Auto) 0 Neut # (Auto) 4.3 Lymph # (Auto) 0.6 L [place] # (Auto) 0.4 Eos # (Auto) 0.0 Baso # (Auto) 0.0 Immature Gran # (Auto) 0.02 H Absolute Nucleated RBC 0.00 Immature Gran % 0 Nucleated RBC % 0 PT 12.9 H INR 1.2 APTT 32.4 Sodium 136 Potassium 3.4 Chloride 96 L Carbon Dioxide 28.7 Anion Gap 11 BUN 18 Creatinine 0.9 Estim Creat Clear Calc 78.0 eGFR > 60 BUN/Creatinine Ratio 20 Glucose 105 Calculated Osmolality 273 L Calcium 8.6 Corrected Calcium 8.8 Phosphorus 3.1 Magnesium 1.9 Total Bilirubin 1.7 H AST 257 H ALT 262 H Alkaline Phosphatase 167 H Total Protein 6.4 Albumin 3.8 Globulin 2.6 Albumin/Globulin Ratio 1.5 ABG Interpretation ABG results: 02/20/25 10:31 ABG pH 7.30 L ABG pCO2 55 H ABG pO2 227 H ABG HCO3 27 H ABG O2 Saturation 101 H ABG Base Excess 0 Quality Measures Quality Measures none Advance care planning discussed with:: patient Assessment & Plan Assessment Current Active Medications: Generic Name Dose Route Start Last Admin Trade Name Freq PRN Reason Stop Dose Admin Acetaminophen 650 mg 02/20/25 10:05 02/20/25 19:21 Acetaminophen 325 Mg Tablet PO 03/22/25 10:04 650 mg Q6H PRN Administration Pain (1-3) & Fever >100.4 Hydrocodone Bitart/Acetaminophen 1 tab 02/22/25 11:56 Hydrocodone/Apap 10/325 Tab PO 02/27/25 11:55 Q4HR PRN PAIN SCALE 4-10(Mod-Sev Amlodipine Besylate 5 mg 02/22/25 09:00 02/22/25 09:21 Amlodipine Besylate 5 Mg Tablet PO 03/24/25 08:59 5 mg QDAY LAMINE Administration Aspirin 81 mg 02/21/25 09:00 02/22/25 09:22 Aspirin Ec 81 Mg Tabec PO 03/23/25 08:59 81 mg QDAY LAMINE Administration Clonidine 0.1 mg 02/22/25 14:00 02/22/25 13:19 Clonidine Hcl 0.1 Mg Tablet PO 03/24/25 13:59 0.1 mg TID LAMINE Administration Clopidogrel Bisulfate 75 mg 02/21/25 09:00 02/22/25 09:22 Clopidogrel Bisulfate 75 Mg Tablet PO 03/23/25 08:59 75 mg QDAY LAMINE Administration Enoxaparin Sodium 40 mg 02/21/25 09:00 02/22/25 09:22 Enoxaparin Sod Inj 40 Mg/0.4 Ml Syringe SC 03/07/25 08:59 40 mg QDAY LAMINE Administration Fluoxetine HCl 40 mg 02/20/25 23:30 02/22/25 09:21 Fluoxetine Hcl 10 Mg Capsule PO 03/22/25 23:29 40 mg BID LAMINE Administration Furosemide 40 mg 02/20/25 18:00 02/22/25 05:17 Furosemide Inj 10 Mg/Ml 4ml Vial IVP 03/22/25 17:59 40 mg BIDD LAMINE Administration Gabapentin 300 mg 02/20/25 21:00 02/22/25 09:22 Gabapentin 100 Mg Capsule PO 03/22/25 20:59 300 mg BID LAMINE Administration Guaifenesin 200 mg 02/22/25 09:08 02/22/25 09:31 Guaifenesin Syrup 200 Mg/10 Ml Udc PO 03/24/25 09:07 200 mg QID PRN Administration COUGH OR CONGESTION Protocol Lidocaine 1 patch 02/22/25 09:06 Lidocaine 5% 1 Patch TOP 03/24/25 09:05 UD PRN Back Pain Losartan Potassium 50 mg 02/20/25 23:30 02/22/25 09:21 Losartan Potassium 25 Mg Tablet PO 03/22/25 23:29 50 mg BID LAMINE Administration Morphine Sulfate 2 mg 02/22/25 11:56 Morphine Sulf Inj 10 Mg/Ml Vial IVP 02/27/25 09:05 Q4HR PRN BREAKTHROUGH PAIN (SEVERE) Ondansetron HCl 4 mg 02/20/25 10:10 02/21/25 17:35 Ondansetron Inj 2 Mg/Ml Inj 2 Ml IV 03/22/25 10:09 4 mg Q6H PRN Administration NAUSEA OR VOMITING Protocol Pantoprazole Sodium 40 mg 02/21/25 09:00 02/22/25 09:22 Pantoprazole 40 Mg Tablet PO 03/23/25 08:59 40 mg QDAY LAMINE Administration Polyethylene Glycol 17 gm 02/21/25 09:45 02/22/25 09:21 Polyethylene Glycol 17 Gm Packet PO 03/23/25 09:44 17 gm QDAY LAMINE Administration Sennosides 2 tab 02/21/25 09:45 02/22/25 09:20 Senna Tablet PO 03/23/25 09:44 2 tab QDAY LAMINE Administration Protocol Sucralfate 1 gm 02/21/25 07:38 Sucralfate Susp 1 Gm/10 Ml Udc PO 03/23/25 07:37 QID PRN PAIN Protocol Plan Assessment and plan: Summary: Ms. Enciso is a 69-year-old female with past medical history of hypertension, HFpEF (EF 55 to 60% 07/17/24), coronary artery disease status post 4 stent placement and chronic pain who presented to [facility] emergency department on 02/20/2025 with a chief complaint of shortness of breath. Patient admitted to the hospital for acute decompensated heart failure. #Acute hypoxic and hypercapnic respiratory failure #Acute decompensated heart failure #Heart failure with preserved ejection fraction (EF 55 to 60%, 07/17/2024) #Obesity hypoventilation syndrome Patient presented to the ED with shortness of breath, Chest x-ray in the ED shows mild to moderate heart failure. BNP 615, 3+ bilateral lower extremity edema. ABG after hours of BiPAP show pH 7.3, pCO2 55, venous CO2 19.9. Patient's baseline venous CO2 around 29 ECHO 07/17/2024: Normal LV size and function. Estimated EF 55-60% Mild RV dilated. Normal RV function. Estimated RVSP 59mmHg. RAP 5. Mild MR, PI. Moderate AI, TR. Mild AV sclerosis without stenosis. Patient received nitroglycerin patch, Lasix 80 mg x 1 and morphine 3 mg x 1, morphine 5 mg x 1 in the emergency department. 02/22/25: Net hospitalization negative -4.7 L, weight 114.7 Plan: - Lasix 40 IV twice daily - Strict intake and output - Continue BiPAP at bedtime - Fluid restriction 1500 cc - Pending echocardiogram - Daily weight - Cardiology consulted, appreciate recommendations - Patient is not on BiPAP at home, only uses oxygen at night, should be scheduled for sleep study outpatient. #Cardiac chest pain #Coronary artery disease, status post stent placement, by history Patient complains of chest pain, does have history of on and off chest pain in the past. Troponins negative on presentation. EKG negative for any ST?T changes Patient received nitroglycerin patch, Lasix 80 mg x 1 and morphine 3 mg x 1, morphine 5 mg x 1 in the emergency department. Patient had abnormal Lexiscan outpatient Plan -Cardiology recommends cardiac catheterization, pending recommendations -Continue aspirin and Plavix -Cardiology consulted, appreciate recommendations #Hypertension Presented with blood pressure 215/118, was given Lasix 80 IV x 1. - Continue home dose losartan 50 mg twice daily - Uptitrated clonidine to 0.1 mg 3 times a day - Started on amlodipine 5 mg, uptitrate as needed #Hyperbilirubinemia #Transaminitis #Elevated alk phos Uptrending bilirubin, ALT AST and alk phos Liver ultrasound shows normal common bile duct, moderate hepatomegaly primary hepatocellular disease fatty liver Hepatitis C antibody reactive, ordered hep RNA quant -Follow titers for hep C viral load #Chronic pain #History of knee pain #Degenerative disc disorder # Depression - Started on [place] as needed, resumed home dose gabapentin - Morphine as needed for breakthrough pain - Continue fluoxetine home dose #Normocytic normochromic anemia #Iron deficiency anemia Iron 15, TIBC 328, iron saturation 4, iron sat iron binding 313, ferritin 153 -Monitor CBC in a.m. -Will consider discharging patient on p.o. iron #Hypervolemic hypoosmolar hyponatremia, resolved DVT prophylaxis: Lovenox GI prophylaxis: Protonix p.o. Diet: Cardiac, fluid restriction 1500 cc Lines: Peripheral IV Code status: Full code Case discussed with Attending Dr. Tee and Dr. Peterson PGY3. Sukhdeep Li PGY1 Disclaimer: This note was dictated by speech recognition. Minor errors in property inspector may be present due to voice recognition software. I discussed with and supervised the senior internet sales consultant physician who took care of this patient. I personally saw and examined the patient and discussed the assessment and plan with the entire medicine team, including my attending Dr. Randal TILLMAN. I agree with the assessment and plan as documented above. Patient interviewed and examined at bedside this a.m. No acute overnight events. Patient was kept n.p.o. over midnight due to anticipated angiogram. Patient was taken for the angiogram however had difficulty laying flat with excessive coughing. Therefore the angiogram was deferred for a later time. Will continue diuresing the patient and await further recommendations from cardiology services. Patient was complaining of back pain which is a chronic issue. We increased her pain regimen to coincide with her home dose of hydrocodone 10 mg. Dimitrios Peterson M.D. Internal Medicine PGY-3 Attending Provider Attestation/Addendum I have examined the patient, reviewed labs and imaging findings, discussed the case with the resident(s), and reviewed entered orders. I agree with the plan of care as outlined in this note, with these additional summaries/recommendations: Patient seen at bedside. No acute overnight events. Patient went for cardiac catheterization this morning although was unable to lie flat secondary to shortness of breath. Cardiac cath postponed and we will follow-up with cardiology to see if this can be done outpatient versus inpatient. Continue diuresis for CHF exacerbation and supplemental oxygen. Patient requiring 3 L nasal cannula today which is slightly improved and is net -1.7 L in the last 24 hours. Echocardiogram pending. Mild worsening of the transaminitis. Transaminitis possibly secondary to congestive hepatopathy and less likely hepatitis C as viral loads have been undetectable. Patient endorsing significant back pain today and required IV morphine. Continue home [place] dosage. We will start goal-directed medical therapy if indicated based off echocardiogram results. Blood pressure currently uncontrolled and we will continue to optimize BP regimen. Patient updated on the plan and agreement. All questions answered to satisfaction. Dr. Randal MD
--- NOTE | 2025-02-22 19:10 | ESPR_ITS ---
RE: EMERALD REY : 1955 DATE OF SERVICE: 02/22/2025 SUBJECTIVE: The patient is a 69-year-old lady with history of CAD, multiple stent placements, hypertension, and congestive heart failure, came to the hospital with congestive heart failure decompensated with preserved ejection fraction. Echo showed normal EF. Nuclear scan in my office was mildly abnormal, but at this time, she denied any myocardial infarction. Chest pain resolved. She is feeling a lot better, still has orthopnea, but less orthopnea than yesterday. OBJECTIVE: Vital Signs: Blood pressure 133/43, pulse 86, respirations 20, and temperature normal. Neck: Supple. No JVD. Lungs: Decreased breath sounds. Heart: S1 and S2 regular. Abdomen: Obese and soft. Extremities: Mild edema, improved. Genitourinary and Rectal: Not performed. LABORATORY DATA: Showed hemoglobin 9.7. Chemistry showed creatinine is normal at 0.9. IMPRESSION: 1. Acutely decompensated congestive heart failure with preserved ejection fraction. 2. Coronary artery disease with status post multivessel stent placement. 3. Hypertension. 4. Obesity. RECOMMENDATIONS: Continue medical management and diuretics. Once heart failure seemed to improve, she is able to breathe. She can go home. I will do an outpatient angiogram. No need to do any inpatient coronary angiogram at this time since she has had no evidence of myocardial infarction and is not having any further chest pain. DT: 18:26:52 TT: 19:08:00 Ref: [id number] - TID: [id number]
[2025-02-23] VITALS (16 sets, daily range): BP systolic 118–135; BP diastolic 45–83; PULSE 54–100; RESP 12–22; TEMP 36.1–36.3; O2SAT 96–99; BMI 40.1; BMI 39.9
[2025-02-23] MEDS: guaiFENesin SYRUP 200 MG/10 ML UDC PO ×3 (00:33→21:22)
[2025-02-23] MEDS: FUROSEMIDE INJ 10 MG/ML 4ML VIAL 40 MG IVP (05:24)
[2025-02-23] MEDS: cloNIDine HCL 0.1 MG TABLET PO (05:25)
[2025-02-23] MEDS: HYDROcodone/APAP 10/325 TAB PO (05:35)
[2025-02-23 06:05] LABS: Basophils % (Auto) 0 % (0-2.5); Eosinophils # (Auto) 0.1 Thou/mm3 (0.0-0.5); Eosinophils % (Auto) 3 % (0-10); Hematocrit 30.7 % (36.0-46.0); Hemoglobin 9.6 g/dL (12.0-16.0); Immature Granulocytes % (Auto) 1 % (0-0); Immature Granulocytes Auto 0.02 Thou/mm3 (0.00-0.00); Lymphocytes # (Auto) 0.6 Thou/mm3 (1.0-4.8); Lymphocytes % (Auto) 15 % (10-50); Mean Corpuscular HGB Conc 31.3 g/dl (31.0-37.0); Mean Corpuscular Hemoglobin 26.1 pg (25.0-35.0); Mean Corpuscular Volume 83 fL (80-100); Monocytes # (Auto) 0.3 Thou/mm3 (0.0-0.8); Monocytes % (Auto) 7 % (0-12); Neutrophils # (Auto) 3.2 Thou/mm3 (1.8-7.7); Neutrophils % (Auto) 74 % (37-80); Nucleated Red Blood Cell % 0 /100 WBC (0); Platelet Count 206 Thou/mm3 (140-440); RDW Standard Deviation 53.3 fL (36.4-46.3); Red Blood Count 3.68 Miln/mm3 (4.00-5.20); White Blood Count 4.3 Thou/mm3 (3.6-11.0)
[2025-02-23 06:57] LABS: Alanine Aminotransferase 255 U/L (10-49); Albumin, Serum 3.7 gm/dL (3.4-4.8); Albumin/Globulin Ratio 1.4 (1.2-2.2); Alkaline Phosphatase 157 U/L (46-116); Anion Gap 9 (7-16); Aspartate Amino Transferase 204 U/L (0-34); BUN/Creatinine Ratio 20 Ratio (12-20); Bilirubin,Total 1.1 mg/dL (0.3-1.2); Blood Urea Nitrogen 16 mg/dL (9-23); Calcium 8.6 mg/dL (8.3-10.6); Calcium (Corrected) 8.8 mg/dL (8.5-10.1); Carbon Dioxide 32.5 mMol/L (20.0-31.0); Chloride 93 mMol/L (98-107); Creatinine (Component) 0.8 mg/dL (0.6-1.3); Globulin 2.6 gm/dL (2.3-3.5); Glucose 89 mg/dL (74-106); Osmolality,Calculated 268 (275-295); Phosphorous 3.1 mg/dL (2.4-5.1); Potassium 3.4 mMol/L (3.4-5.1); Sodium 134 mMol/L (136-145); Total Protein 6.3 gm/dL (5.7-8.2); eGFR > 60 See Note
[2025-02-23] MEDS: LOSARTAN POTASSIUM 25 MG TABLET 50 MG PO (08:59)
[2025-02-23] MEDS: POLYETHYLENE GLYCOL 17 GM PACKET PO (08:59)
[2025-02-23] MEDS: ASPIRIN EC 81 MG TABEC PO (09:00)
[2025-02-23] MEDS: SENNA TABLET 2 TAB PO (09:00)
[2025-02-23] MEDS: CLOPIDOGREL BISULFATE 75 MG TABLET PO (09:00)
[2025-02-23] MEDS: amLODIPine BESYLATE 5 MG TABLET PO (09:00)
[2025-02-23] MEDS: PANTOPRAZOLE 40 MG TABLET PO (09:01)
[2025-02-23] MEDS: FLUoxetine HCL 10 MG CAPSULE 40 MG PO ×2 (09:01→21:22)
[2025-02-23] MEDS: ENOXAPARIN SOD INJ 40 MG/0.4 ML SYRINGE SC (09:01)
[2025-02-23] MEDS: POTASSIUM CHLORIDE 20 mEq TABCR 40 MEQ PO (09:08)
[2025-02-23] MEDS: GABAPENTIN 300 MG CAPSULE PO ×2 (09:09→21:22)
[2025-02-23] MEDS: Magnesium Sulfate 1 gm Ivpb 1 GM/100 ML BAG IV (09:35)
--- NOTE | 2025-02-23 09:58 | PD.RESPRO ---
Documentation for date of: 02/23/25 Subjective Subjective Interval history: Patient was seen and examined at bedside this AM. No acute exents overnight. Patient tolerating diet, adequate urine output and mentation is at baseline. Patient endorses improvement of SOB and orthopnea. However complains of a nonproductive cough and constipation for the past 6 days. Lactulose 10 Mg p.o. x 1 ordered Fluid balance of -1190 cc in past 24 hours. On diuresis with Lasix 40 Mg IV twice daily K3.4, Mg 2. Repleted with KCl 60 mEq p.o. x 1 and magnesium sulfate 1 g IV x 1 Bicarb increased to 32.5 from 28.7, most likely contraction alkalosis. Exam Vital Signs Temp Pulse Resp BP Pulse Ox O2 Del Method O2 Flow Rate 97.0 F 54 L 16 125/69 99 Nasal Cannula 3 02/23/25 08:00 02/23/25 09:00 02/23/25 08:00 02/23/25 09:00 02/23/25 08:00 02/23/25 08:00 02/23/25 08:00 FiO2 28 02/23/25 03:04 Narrative Exam Constitutional Alert, oriented x 3 and comfortable HEENT Vision grossly intact. Patent nares. Trachea midline Respiratory Chest normal on inspection, scattered wheeze heard throughout all lung stacy, bibasilar crackles Cardiovascular S1 and S2 audible, RRR. No murmurs carotid bruit. No gross JVD. Abdominal Obese, soft and mildly tender to palpation in lower quadrants, BS + Genitourinary No bladder tenderness, no flank pain. Normal to palpation Musculoskeletal Extremities tone within normal limits. Anasarca up to sacrum Neurological CN II - XII grossly intact. Extremity motor and sensation grossly intact. Skin Warm, dry and intact. No apparent lesions. Psychiatric Patient has good affect, is cooperative Objective Labs 02/24/25 05:09 02/24/25 05:09 Labs: Laboratory Results - last 24 hr 02/23/25 04:45 WBC 4.3 RBC 3.68 L Hgb 9.6 L Hct 30.7 L MCV 83 MCH 26.1 MCHC 31.3 RDW Std Deviation 53.3 H Plt Count 206 Neut % (Auto) 74 Lymph % (Auto) 15 [place] % (Auto) 7 Eos % (Auto) 3 Baso % (Auto) 0 Neut # (Auto) 3.2 Lymph # (Auto) 0.6 L [place] # (Auto) 0.3 Eos # (Auto) 0.1 Baso # (Auto) 0.0 Immature Gran # (Auto) 0.02 H Absolute Nucleated RBC 0.00 Immature Gran % 1 H Nucleated RBC % 0 Sodium 134 L Potassium 3.4 Chloride 93 L Carbon Dioxide 32.5 H Anion Gap 9 BUN 16 Creatinine 0.8 Estim Creat Clear Calc 87.0 eGFR > 60 BUN/Creatinine Ratio 20 Glucose 89 Calculated Osmolality 268 L Calcium 8.6 Corrected Calcium 8.8 Phosphorus 3.1 Magnesium 2.0 Total Bilirubin 1.1 D AST 204 H ALT 255 H Alkaline Phosphatase 157 H Total Protein 6.3 Albumin 3.7 Globulin 2.6 Albumin/Globulin Ratio 1.4 ABG Interpretation ABG results: 02/20/25 10:31 ABG pH 7.30 L ABG pCO2 55 H ABG pO2 227 H ABG HCO3 27 H ABG O2 Saturation 101 H ABG Base Excess 0 Quality Measures Quality Measures none Advance care planning discussed with:: patient Assessment & Plan Assessment Current Active Medications: Generic Name Dose Route Start Last Admin Trade Name Freq PRN Reason Stop Dose Admin Acetaminophen 650 mg 02/20/25 10:05 02/20/25 19:21 Acetaminophen 325 Mg Tablet PO 03/22/25 10:04 650 mg Q6H PRN Administration Pain (1-3) & Fever >100.4 Hydrocodone Bitart/Acetaminophen 1 tab 02/22/25 11:56 02/23/25 05:35 Hydrocodone/Apap 10/325 Tab PO 02/27/25 11:55 1 tab Q4HR PRN Administration PAIN SCALE 4-10(Mod-Sev Albuterol/Ipratropium 3 ml 02/23/25 13:00 Albuterol/Ipratropium (Duoneb) Rt Fatmata 3 Ml Nebu INH 03/25/25 12:59 Q6HRRT LAMINE Amlodipine Besylate 5 mg 02/22/25 09:00 02/23/25 09:00 Amlodipine Besylate 5 Mg Tablet PO 03/24/25 08:59 5 mg QDAY LAMINE Administration Aspirin 81 mg 02/21/25 09:00 02/23/25 09:00 Aspirin Ec 81 Mg Tabec PO 03/23/25 08:59 81 mg QDAY LAMINE Administration Clonidine 0.1 mg 02/22/25 14:00 02/23/25 05:25 Clonidine Hcl 0.1 Mg Tablet PO 03/24/25 13:59 0.1 mg TID LAMINE Administration Clopidogrel Bisulfate 75 mg 02/21/25 09:00 02/23/25 09:00 Clopidogrel Bisulfate 75 Mg Tablet PO 03/23/25 08:59 75 mg QDAY LAMINE Administration Enoxaparin Sodium 40 mg 02/21/25 09:00 02/23/25 09:01 Enoxaparin Sod Inj 40 Mg/0.4 Ml Syringe SC 03/07/25 08:59 40 mg QDAY LAMINE Administration Fluoxetine HCl 40 mg 02/20/25 23:30 02/23/25 09:01 Fluoxetine Hcl 10 Mg Capsule PO 03/22/25 23:29 40 mg BID LAMINE Administration Furosemide 40 mg 02/20/25 18:00 02/23/25 05:24 Furosemide Inj 10 Mg/Ml 4ml Vial IVP 03/22/25 17:59 40 mg BIDD LAMINE Administration Gabapentin 300 mg 02/23/25 09:00 02/23/25 09:09 Gabapentin 300 Mg Capsule PO 03/22/25 20:59 300 mg BID LAMINE Administration Guaifenesin 200 mg 02/22/25 09:08 02/23/25 09:31 Guaifenesin Syrup 200 Mg/10 Ml Udc PO 03/24/25 09:07 200 mg QID PRN Administration COUGH OR CONGESTION Protocol Lactulose 10 gm 02/23/25 09:56 Lactulose Syrup 20 Gm/30 Ml Udc PO 02/23/25 09:57 X1 ONE Protocol Lidocaine 1 patch 02/22/25 09:06 Lidocaine 5% 1 Patch TOP 03/24/25 09:05 UD PRN Back Pain Protocol Losartan Potassium 50 mg 02/20/25 23:30 02/23/25 08:59 Losartan Potassium 25 Mg Tablet PO 03/22/25 23:29 50 mg BID LAMINE Administration Morphine Sulfate 2 mg 02/22/25 11:56 Morphine Sulf Inj 10 Mg/Ml Vial IVP 02/27/25 09:05 Q4HR PRN BREAKTHROUGH PAIN (SEVERE) Ondansetron HCl 4 mg 02/20/25 10:10 02/21/25 17:35 Ondansetron Inj 2 Mg/Ml Inj 2 Ml IV 03/22/25 10:09 4 mg Q6H PRN Administration NAUSEA OR VOMITING Protocol Pantoprazole Sodium 40 mg 02/21/25 09:00 02/23/25 09:01 Pantoprazole 40 Mg Tablet PO 03/23/25 08:59 40 mg QDAY LAMINE Administration Polyethylene Glycol 17 gm 02/21/25 09:45 02/23/25 08:59 Polyethylene Glycol 17 Gm Packet PO 03/23/25 09:44 17 gm QDAY LAMINE Administration Potassium Chloride 20 meq 02/23/25 09:56 Potassium Chloride 20 Meq Tabcr PO 02/23/25 09:57 X1 ONE Sennosides 2 tab 02/21/25 09:45 02/23/25 09:00 Senna Tablet PO 03/23/25 09:44 2 tab QDAY LAMINE Administration Protocol Sucralfate 1 gm 02/21/25 07:38 Sucralfate Susp 1 Gm/10 Ml Udc PO 03/23/25 07:37 QID PRN PAIN Protocol Plan Assessment and plan: Summary: Ms. Enciso is a 69-year-old female with past medical history of hypertension, HFpEF (EF 55 to 60% 07/17/24), coronary artery disease status post 4 stent placement and chronic pain who presented to [facility] emergency department on 02/20/2025 with a chief complaint of shortness of breath. Patient admitted to the hospital for acute decompensated heart failure. #Acute hypoxic respiratory failure - resolving #Acute decompensated heart failure exacerbation [EF 55-60%] #Obesity hypoventilation syndrome Patient presented to the ED with shortness of breath, Chest x-ray in the ED shows mild to moderate heart failure. BNP 615, 3+ bilateral lower extremity edema. ECHO 07/17/2024: Normal LV size and function. Estimated EF 55-60% Mild RV dilated. Normal RV function. Estimated RVSP 59mmHg. RAP 5. Mild MR, PI. Moderate AI, TR. Mild AV sclerosis without stenosis. Fluid balance of -1190 cc in past 24 hours. On diuresis with Lasix 40 Mg IV twice daily K3.4, Mg 2. Repleted with KCl 60 mEq p.o. x 1 and magnesium sulfate 1 g IV x 1 Bicarb increased to 32.5 from 28.7, most likely contraction alkalosis. Plan: - Continue Lasix 40 IV twice daily ? DuoNebs every 6 hourly scheduled - Strict intake and output - Continue BiPAP at bedtime - Fluid restriction 1500 cc - Daily weight - Patient is not on BiPAP at home, only uses oxygen at night, should be scheduled for sleep study outpatient. ?Cardiology, Dr. Orlando Lopez consulted. Appreciate recommendations # ACS?resolved # Multivessel coronary artery disease s/p multiple stents and angioplasty Chest pain now resolved Plan -Cardiology recommends cardiac catheterization as an outpatient -Continue aspirin and Plavix -Cardiology consulted, appreciate recommendations #Primary hypertension Currently BP 118/63 Plan: - Continue home dose losartan 50 mg twice daily - Continue clonidine 0.1 Mg 3 times daily - Continue amlodipine 5 Mg p.o. daily #Hyperbilirubinemia #Transaminitis?resolving #Elevated alk phos Liver enzymes improving. Most likely hepatic congestion from decompensated heart failure. Liver ultrasound shows normal common bile duct, moderate hepatomegaly primary hepatocellular disease fatty liver Hepatitis C antibody reactive, hep C RNA quant pending Plan: -Awaiting hep C RNA quant #Chronic pain #History of knee pain #Degenerative disc disorder # Depression - Continue on [place] as needed, continue home dose gabapentin - Morphine as needed for breakthrough pain - Continue fluoxetine home dose #Normocytic normochromic anemia #Iron deficiency anemia Iron 15, TIBC 328, iron saturation 4, iron sat iron binding 313, ferritin 153 -Monitor CBC in a.m. -Will consider discharging patient on p.o. iron #Hypervolemic hypoosmolar hyponatremia, resolved Health maintenance: Disposition: IV diuresis. Anticipate discharge within next 24 hours Diet: Cardiac diet, 1500 cc fluid restriction Lines: pIVs GI Prophylaxis: Pantoprazole Thrombo Prophylaxis: Enoxaparin 40 Mg SC daily Code status: FULL CODE Plan of care discussed with Attending Dr. Randal Lion MD PGY 1 Disclaimer: This note was dictated by speech recognition. Minor errors in manager of learning may be present due to voice recognition software. Attending Provider Attestation/Addendum I have examined the patient, reviewed labs and imaging findings, discussed the case with the resident(s), and reviewed entered orders. I agree with the plan of care as outlined in this note, with these additional summaries/recommendations: Patient seen at bedside. No acute overnight events. We will continue IV diuresis for 1 more day as patient is still endorsing shortness of breath and requiring supplemental oxygen but she states her lower extremity edema is much improved. Echocardiogram showed ejection fraction of 55% indicating patient has HFpEF. Cardiac cath will be postponed to outpatient. Mild improvement of the transaminitis on chemistry panel. Transaminitis possibly secondary to congestive hepatopathy and less likely hepatitis C as viral loads have been undetectable. Pain currently controlled. Continue to optimize blood pressure management. Continue home Plavix and aspirin for history of CAD. Patient has not had bowel movement in 6 days despite laxatives. We will proceed with lactulose today. Anticipate discharge in the next [address] Randal MD
[2025-02-23] MEDS: POTASSIUM CHLORIDE 20 mEq TABCR PO (11:03)
[2025-02-23] MEDS: LACTULOSE SYRUP 20 GM/30 ML UDC 10 GM PO (11:03)
--- NOTE | 2025-02-23 13:33 | ESPR_ITS ---
<Statement entered by Manjit Lopez MD - 02/25/25 16:17> The patient examined by me personally with PGY 3 Dr. Bolton patient is doing much better now still have some shortness of breath no further chest pain orthopnea PND patient appears to be stable but still not feeling like want to have angiogram she is not had any acute coronary syndrome mostly shortness with due to heart failure we will optimize medical management possibly discharge him to have outpatient coronary angiogram. Evaluate the patient with resident physician spent more than 20 minutes going over all the questions and concerns evaluated and all essential components of the note are reviewed and agree with the treatment plan recommendations. Documentation for date of: 02/23/25 Subjective Subjective Interval history: Patient was examined bedside this morning, No acute overnight event. She has good urine output of 3150 with balance of -1190. Will continue current management and diuretics. She does not have any further chest pain,She does not need inpatient coronary angiogram Because she does not have any evidence of myocardial infarction at this time. Exam Vital Signs Temp Pulse Resp BP Pulse Ox O2 Del Method O2 Flow Rate 97.4 F 61 17 118/63 98 Nasal Cannula 3 02/23/25 12:00 02/23/25 12:00 02/23/25 12:00 02/23/25 12:00 02/23/25 12:00 02/23/25 12:00 02/23/25 12:00 FiO2 28 02/23/25 03:04 Narrative Exam GENERAL: Comfortable adult seen resting comfortably in hospital bed, no acute distress HEENT: Normocephalic, atraumatic. Pupils are equal and reactive. Oral mucosa is moist. NECK: Supple, nontender, no JVD CARDIOVASCULAR: Heart regular rhythm & rate. S1/S2. no murmur or gallop rub or extra beats. LUNGS: Bilateral wheezing No laboring tachypnea . No intercostal subcostal retraction. No rales and no rhonchi. ABDOMEN: Soft, flat, nontender to palpation, no guarding or rebound tenderness. Active and normal bowel sounds. EXTREMITIES:Moves all 4 extremities,2+ b/l pitting edema upto pavon SKIN: Warm and dry, no jaundice or rashes noted. NEURO: Patient is AO x 3, Cranial nerves II through XII grossly intact. There is no focal neurologic deficits noted. PSYCHIATRIC: Patient is in normal mood, cooperative, no SI or HI or hallucinations. Objective Labs 02/23/25 04:45 02/23/25 04:45 Labs: Laboratory Results - last 24 hr 02/23/25 04:45 WBC 4.3 RBC 3.68 L Hgb 9.6 L Hct 30.7 L MCV 83 MCH 26.1 MCHC 31.3 RDW Std Deviation 53.3 H Plt Count 206 Neut % (Auto) 74 Lymph % (Auto) 15 [place] % (Auto) 7 Eos % (Auto) 3 Baso % (Auto) 0 Neut # (Auto) 3.2 Lymph # (Auto) 0.6 L [place] # (Auto) 0.3 Eos # (Auto) 0.1 Baso # (Auto) 0.0 Immature Gran # (Auto) 0.02 H Absolute Nucleated RBC 0.00 Immature Gran % 1 H Nucleated RBC % 0 Sodium 134 L Potassium 3.4 Chloride 93 L Carbon Dioxide 32.5 H Anion Gap 9 BUN 16 Creatinine 0.8 Estim Creat Clear Calc 87.0 eGFR > 60 BUN/Creatinine Ratio 20 Glucose 89 Calculated Osmolality 268 L Calcium 8.6 Corrected Calcium 8.8 Phosphorus 3.1 Magnesium 2.0 Total Bilirubin 1.1 D AST 204 H ALT 255 H Alkaline Phosphatase 157 H Total Protein 6.3 Albumin 3.7 Globulin 2.6 Albumin/Globulin Ratio 1.4 ABG Interpretation ABG results: 02/20/25 10:31 ABG pH 7.30 L ABG pCO2 55 H ABG pO2 227 H ABG HCO3 27 H ABG O2 Saturation 101 H ABG Base Excess 0 Quality Measures Quality Measures none Advance care planning discussed with:: patient Assessment & Plan Assessment Current Active Medications: Generic Name Dose Route Start Last Admin Trade Name Freq PRN Reason Stop Dose Admin Acetaminophen 650 mg 02/20/25 10:05 02/20/25 19:21 Acetaminophen 325 Mg Tablet PO 03/22/25 10:04 650 mg Q6H PRN Administration Pain (1-3) & Fever >100.4 Hydrocodone Bitart/Acetaminophen 1 tab 02/22/25 11:56 02/23/25 05:35 Hydrocodone/Apap 10/325 Tab PO 02/27/25 11:55 1 tab Q4HR PRN Administration PAIN SCALE 4-10(Mod-Sev Albuterol/Ipratropium 3 ml 02/23/25 13:00 Albuterol/Ipratropium (Duoneb) Rt Fatmata 3 Ml Nebu INH 03/25/25 12:59 Q6HRRT LAMINE Amlodipine Besylate 5 mg 02/22/25 09:00 02/23/25 09:00 Amlodipine Besylate 5 Mg Tablet PO 03/24/25 08:59 5 mg QDAY LAMINE Administration Aspirin 81 mg 02/21/25 09:00 02/23/25 09:00 Aspirin Ec 81 Mg Tabec PO 03/23/25 08:59 81 mg QDAY LAMINE Administration Clonidine 0.1 mg 02/22/25 14:00 02/23/25 05:25 Clonidine Hcl 0.1 Mg Tablet PO 03/24/25 13:59 0.1 mg TID LAMINE Administration Clopidogrel Bisulfate 75 mg 02/21/25 09:00 02/23/25 09:00 Clopidogrel Bisulfate 75 Mg Tablet PO 03/23/25 08:59 75 mg QDAY LAMINE Administration Enoxaparin Sodium 40 mg 02/21/25 09:00 02/23/25 09:01 Enoxaparin Sod Inj 40 Mg/0.4 Ml Syringe SC 03/07/25 08:59 40 mg QDAY LAMINE Administration Fluoxetine HCl 40 mg 02/20/25 23:30 02/23/25 09:01 Fluoxetine Hcl 10 Mg Capsule PO 03/22/25 23:29 40 mg BID LAMINE Administration Furosemide 40 mg 02/20/25 18:00 02/23/25 05:24 Furosemide Inj 10 Mg/Ml 4ml Vial IVP 03/22/25 17:59 40 mg BIDD LAMINE Administration Gabapentin 300 mg 02/23/25 09:00 02/23/25 09:09 Gabapentin 300 Mg Capsule PO 03/22/25 20:59 300 mg BID LAMINE Administration Guaifenesin 200 mg 02/22/25 09:08 02/23/25 09:31 Guaifenesin Syrup 200 Mg/10 Ml Udc PO 03/24/25 09:07 200 mg QID PRN Administration COUGH OR CONGESTION Protocol Lidocaine 1 patch 02/22/25 09:06 Lidocaine 5% 1 Patch TOP 03/24/25 09:05 UD PRN Back Pain Protocol Losartan Potassium 50 mg 02/20/25 23:30 02/23/25 08:59 Losartan Potassium 25 Mg Tablet PO 03/22/25 23:29 50 mg BID LAMINE Administration Morphine Sulfate 2 mg 02/22/25 11:56 Morphine Sulf Inj 10 Mg/Ml Vial IVP 02/27/25 09:05 Q4HR PRN BREAKTHROUGH PAIN (SEVERE) Ondansetron HCl 4 mg 02/20/25 10:10 02/21/25 17:35 Ondansetron Inj 2 Mg/Ml Inj 2 Ml IV 03/22/25 10:09 4 mg Q6H PRN Administration NAUSEA OR VOMITING Protocol Pantoprazole Sodium 40 mg 02/21/25 09:00 02/23/25 09:01 Pantoprazole 40 Mg Tablet PO 03/23/25 08:59 40 mg QDAY LAMINE Administration Polyethylene Glycol 17 gm 02/21/25 09:45 02/23/25 08:59 Polyethylene Glycol 17 Gm Packet PO 03/23/25 09:44 17 gm QDAY LAMINE Administration Sennosides 2 tab 02/21/25 09:45 02/23/25 09:00 Senna Tablet PO 03/23/25 09:44 2 tab QDAY LAMINE Administration Protocol Sucralfate 1 gm 02/21/25 07:38 Sucralfate Susp 1 Gm/10 Ml Udc PO 03/23/25 07:37 QID PRN PAIN Protocol Plan 69-year-old female with past medical history of hypertension, hyperlipidemia, HFpEF, CAD s/p PCI x4, COPD on 2L home O2, hepatitis C, and chronic pain who presented to the ED on 02/20/2025 with a chief complaint of shortness of breath starting in the morning around 1 am, subsequently admitted for CHF exacerbation secondary to missed medications. Cardiology was consulted for further management and as patient follows with Dr. Lopez in office. #Acute decompensated congestive heart failure with preserved ejection fraction. #Coronary artery disease with status post multivessel stent placement. PCI x4 -Likely secondary to missed home medications. Patient reports she is on 40 mg Lasix once daily but up to twice daily if there is increased swelling or shortness of breath. Patient denies chest pain at this time. -EKG without any changes. -Patient had a nuclear stress test done in 12/2024 which showed somewhat abnormal results with evidence of inferior wall ischemia, however echo showed normal EF at 75%. -Continue Lasix 40 IV BID -Strict I&Os -Fluid restrictions -Continue aspirin 81 mg qday -Continue clopidogrel 75 mg qday -Will continue current management and diuretics.She has good urine output of 3150 with balance of -1190. -She does not have any further chest pain,She does not need inpatient coronary angiogram because she does not have any evidence of myocardial infarction at this time. -Follow up with Dr Lopez after discharge for outpatient angiogram #History of hypertension -Continue home medications, losartan and clonidine #History of hyperlipidemia -Continue home statin Discussed the patient with my attending Dr John Bolton MD,PGY-3
[2025-02-23] MEDS: ALBUTEROL/IPRATROPIUM (Duoneb) RT SOL 3 ML NEBU INH ×2 (13:39→17:56)
--- NOTE | 2025-02-23 13:47 | PC.PT ---
PT eval only. Patient is safe to ambulate to the bathroom and in her room with no DME or staff assist but she needs to use O2. Patient is also safe to ambulate in the hallway as long as she has O2. RN made aware.
[2025-02-24] VITALS (11 sets, daily range): BP systolic 126–151; BP diastolic 60–84; PULSE 58–77; RESP 12–25; TEMP 35.9–36.1; O2SAT 96–100; BMI 39.6
[2025-02-24] MEDS: ALBUTEROL/IPRATROPIUM (Duoneb) RT SOL 3 ML NEBU INH (01:03)
[2025-02-24] MEDS: FUROSEMIDE INJ 10 MG/ML 4ML VIAL 40 MG IVP (05:38)
[2025-02-24] MEDS: cloNIDine HCL 0.1 MG TABLET PO (05:39)
[2025-02-24 05:55] LABS: Basophils % (Auto) 1 % (0-2.5); Eosinophils # (Auto) 0.2 Thou/mm3 (0.0-0.5); Eosinophils % (Auto) 4 % (0-10); Hematocrit 29.6 % (36.0-46.0); Hemoglobin 9.2 g/dL (12.0-16.0); Immature Granulocytes % (Auto) 1 % (0-0); Immature Granulocytes Auto 0.04 Thou/mm3 (0.00-0.00); Lymphocytes % (Auto) 22 % (10-50); Mean Corpuscular HGB Conc 31.1 g/dl (31.0-37.0); Mean Corpuscular Hemoglobin 25.9 pg (25.0-35.0); Mean Corpuscular Volume 83 fL (80-100); Monocytes # (Auto) 0.4 Thou/mm3 (0.0-0.8); Monocytes % (Auto) 9 % (0-12); Neutrophils # (Auto) 2.8 Thou/mm3 (1.8-7.7); Neutrophils % (Auto) 65 % (37-80); Nucleated Red Blood Cell % 0 /100 WBC (0); Platelet Count 292 Thou/mm3 (140-440); RDW Standard Deviation 52.5 fL (36.4-46.3); Red Blood Count 3.55 Miln/mm3 (4.00-5.20); White Blood Count 4.4 Thou/mm3 (3.6-11.0)
[2025-02-24 06:33] LABS: Alanine Aminotransferase 209 U/L (10-49); Albumin, Serum 3.6 gm/dL (3.4-4.8); Albumin/Globulin Ratio 1.5 (1.2-2.2); Alkaline Phosphatase 160 U/L (46-116); Anion Gap 8 (7-16); Aspartate Amino Transferase 144 U/L (0-34); BUN/Creatinine Ratio 18 Ratio (12-20); Bilirubin,Total 0.8 mg/dL (0.3-1.2); Blood Urea Nitrogen 16 mg/dL (9-23); Calcium 8.7 mg/dL (8.3-10.6); Carbon Dioxide 34.7 mMol/L (20.0-31.0); Chloride 97 mMol/L (98-107); Creatinine (Component) 0.9 mg/dL (0.6-1.3); Globulin 2.4 gm/dL (2.3-3.5); Glucose 107 mg/dL (74-106); Osmolality,Calculated 280 (275-295); Phosphorous 3.5 mg/dL (2.4-5.1); Potassium 3.8 mMol/L (3.4-5.1); Sodium 140 mMol/L (136-145); eGFR > 60 See Note
--- NOTE | 2025-02-24 08:14 | ESPR_ITS ---
<Statement entered by Manjit Lopez MD - 02/25/25 16:18> The patient is examined and evaluated by me personally overnight patient doing fairly well no shortness of breath no chest pain she still on oxygen but improving no orthopnea or PND discussed about angiogram possible do as an outpatient reviewed the note and findings by PGY 3 Dr. Bolton agree with the treatment plan recommendation as documented. Documentation for date of: 02/24/25 Subjective Subjective Interval history: Patient was examined at bedside this morning, no acute overnight event. Exam Vital Signs Temp Pulse Resp BP Pulse Ox O2 Del Method O2 Flow Rate 96.7 F L 63 14 140/67 H 99 Nasal Cannula 2 02/24/25 04:00 02/24/25 05:39 02/24/25 04:00 02/24/25 05:39 02/24/25 04:00 02/24/25 04:00 02/24/25 04:00 FiO2 28 02/24/25 01:36 Narrative Exam GENERAL: Comfortable adult seen resting comfortably in hospital bed, no acute distress HEENT: Normocephalic, atraumatic. Pupils are equal and reactive. Oral mucosa is moist. NECK: Supple, nontender, no JVD CARDIOVASCULAR: Heart regular rhythm & rate. S1/S2. no murmur or gallop rub or extra beats. LUNGS: Bilateral wheezing No laboring tachypnea . No intercostal subcostal retraction. No rales and no rhonchi. ABDOMEN: Soft, flat, nontender to palpation, no guarding or rebound tenderness. Active and normal bowel sounds. EXTREMITIES:Moves all 4 extremities,2+ b/l pitting edema upto pavon SKIN: Warm and dry, no jaundice or rashes noted. NEURO: Patient is AO x 3, Cranial nerves II through XII grossly intact. There is no focal neurologic deficits noted. PSYCHIATRIC: Patient is in normal mood, cooperative, no SI or HI or hallucinations. Objective Labs 02/24/25 05:09 02/24/25 05:09 Labs: Laboratory Results - last 24 hr 02/24/25 05:09 WBC 4.4 RBC 3.55 L Hgb 9.2 L Hct 29.6 L MCV 83 MCH 25.9 MCHC 31.1 RDW Std Deviation 52.5 H Plt Count 292 D Neut % (Auto) 65 Lymph % (Auto) 22 [place] % (Auto) 9 Eos % (Auto) 4 Baso % (Auto) 1 Neut # (Auto) 2.8 Lymph # (Auto) 1.0 [place] # (Auto) 0.4 Eos # (Auto) 0.2 Baso # (Auto) 0.0 Immature Gran # (Auto) 0.04 H Absolute Nucleated RBC 0.00 Immature Gran % 1 H Nucleated RBC % 0 Sodium 140 Potassium 3.8 Chloride 97 L Carbon Dioxide 34.7 H Anion Gap 8 BUN 16 Creatinine 0.9 Estim Creat Clear Calc 77.0 eGFR > 60 BUN/Creatinine Ratio 18 Glucose 107 H Calculated Osmolality 280 Calcium 8.7 Corrected Calcium 9.0 Phosphorus 3.5 Magnesium 2.0 Total Bilirubin 0.8 AST 144 H ALT 209 H Alkaline Phosphatase 160 H Total Protein 6.0 Albumin 3.6 Globulin 2.4 Albumin/Globulin Ratio 1.5 ABG Interpretation ABG results: 02/20/25 10:31 ABG pH 7.30 L ABG pCO2 55 H ABG pO2 227 H ABG HCO3 27 H ABG O2 Saturation 101 H ABG Base Excess 0 Quality Measures Quality Measures none Advance care planning discussed with:: patient Assessment & Plan Assessment Current Active Medications: Generic Name Dose Route Start Last Admin Trade Name Freq PRN Reason Stop Dose Admin Acetaminophen 650 mg 02/20/25 10:05 02/20/25 19:21 Acetaminophen 325 Mg Tablet PO 03/22/25 10:04 650 mg Q6H PRN Administration Pain (1-3) & Fever >100.4 Hydrocodone Bitart/Acetaminophen 1 tab 02/22/25 11:56 02/23/25 05:35 Hydrocodone/Apap 10/325 Tab PO 02/27/25 11:55 1 tab Q4HR PRN Administration PAIN SCALE 4-10(Mod-Sev Albuterol/Ipratropium 3 ml 02/23/25 13:00 02/24/25 01:03 Albuterol/Ipratropium (Duoneb) Rt Fatmata 3 Ml Nebu INH 03/25/25 12:59 3 ml Q6HRRT LAMINE Administration Amlodipine Besylate 5 mg 02/22/25 09:00 02/23/25 09:00 Amlodipine Besylate 5 Mg Tablet PO 03/24/25 08:59 5 mg QDAY LAMINE Administration Aspirin 81 mg 02/21/25 09:00 02/23/25 09:00 Aspirin Ec 81 Mg Tabec PO 03/23/25 08:59 81 mg QDAY LAMINE Administration Clonidine 0.1 mg 02/24/25 21:00 Clonidine Hcl 0.1 Mg Tablet PO 03/26/25 20:59 BID LAMINE Clopidogrel Bisulfate 75 mg 02/21/25 09:00 02/23/25 09:00 Clopidogrel Bisulfate 75 Mg Tablet PO 03/23/25 08:59 75 mg QDAY LAMINE Administration Enoxaparin Sodium 40 mg 02/21/25 09:00 02/23/25 09:01 Enoxaparin Sod Inj 40 Mg/0.4 Ml Syringe SC 03/07/25 08:59 40 mg QDAY LAMINE Administration Fluoxetine HCl 40 mg 02/20/25 23:30 02/23/25 21:22 Fluoxetine Hcl 10 Mg Capsule PO 03/22/25 23:29 40 mg BID LAMINE Administration Furosemide 40 mg 02/20/25 18:00 02/24/25 05:38 Furosemide Inj 10 Mg/Ml 4ml Vial IVP 03/22/25 17:59 40 mg BIDD LAMINE Administration Gabapentin 300 mg 02/23/25 09:00 02/23/25 21:22 Gabapentin 300 Mg Capsule PO 03/22/25 20:59 300 mg BID LAMINE Administration Guaifenesin 200 mg 02/22/25 09:08 02/23/25 21:22 Guaifenesin Syrup 200 Mg/10 Ml Udc PO 03/24/25 09:07 200 mg QID PRN Administration COUGH OR CONGESTION Protocol Magnesium Sulfate/Dextrose 1 gm in 100 mls @ 100 mls/hr 02/24/25 07:59 Magnesium Sulfate Ivpb IV 02/24/25 08:58 X1 ONE Lidocaine 1 patch 02/22/25 09:06 Lidocaine 5% 1 Patch TOP 03/24/25 09:05 UD PRN Back Pain Protocol Losartan Potassium 50 mg 02/20/25 23:30 02/23/25 22:28 Losartan Potassium 25 Mg Tablet PO 03/22/25 23:29 Not Given BID LAMINE Morphine Sulfate 2 mg 02/22/25 11:56 Morphine Sulf Inj 10 Mg/Ml Vial IVP 02/27/25 09:05 Q4HR PRN BREAKTHROUGH PAIN (SEVERE) Ondansetron HCl 4 mg 02/20/25 10:10 02/21/25 17:35 Ondansetron Inj 2 Mg/Ml Inj 2 Ml IV 03/22/25 10:09 4 mg Q6H PRN Administration NAUSEA OR VOMITING Protocol Pantoprazole Sodium 40 mg 02/21/25 09:00 02/23/25 09:01 Pantoprazole 40 Mg Tablet PO 03/23/25 08:59 40 mg QDAY LAMINE Administration Polyethylene Glycol 17 gm 02/21/25 09:45 02/23/25 08:59 Polyethylene Glycol 17 Gm Packet PO 03/23/25 09:44 17 gm QDAY LAMINE Administration Sennosides 2 tab 02/21/25 09:45 02/23/25 09:00 Senna Tablet PO 03/23/25 09:44 2 tab QDAY LAMINE Administration Protocol Sucralfate 1 gm 02/21/25 07:38 Sucralfate Susp 1 Gm/10 Ml Udc PO 03/23/25 07:37 QID PRN PAIN Protocol Plan 69-year-old female with past medical history of hypertension, hyperlipidemia, HFpEF, CAD s/p PCI x4, COPD on 2L home O2, hepatitis C, and chronic pain who presented to the ED on 02/20/2025 with a chief complaint of shortness of breath starting in the morning around 1 am, subsequently admitted for CHF exacerbation secondary to missed medications. Cardiology was consulted for further management and as patient follows with Dr. Lopez in office. #Acute decompensated congestive heart failure with preserved ejection fraction. #Coronary artery disease with status post multivessel stent placement. PCI x4 -Likely secondary to missed home medications. Patient reports she is on 40 mg Lasix once daily but up to twice daily if there is increased swelling or shortness of breath. Patient denies chest pain at this time. -EKG without any changes. -Patient had a nuclear stress test done in 12/2024 which showed somewhat abnormal results with evidence of inferior wall ischemia, however echo showed normal EF at 75%. -Continue Lasix 40 IV BID -Strict I&Os -Fluid restrictions -Continue aspirin 81 mg qday -Continue clopidogrel 75 mg qday -Will continue current management and diuretics.She has good urine output of 3150 with balance of -1190. -She does not have any further chest pain,She does not need inpatient coronary angiogram because she does not have any evidence of myocardial infarction at this time. -Follow up with Dr Lopez after discharge for outpatient angiogram #History of hypertension -Continue home medications, losartan and clonidine #History of hyperlipidemia -Continue statin Discussed the patient with my attending Dr John Bolton MD,PGY-3
[2025-02-24] MEDS: Magnesium Sulfate 1 gm Ivpb 1 GM/100 ML BAG IV (08:15)
[2025-02-24] MEDS: FLUoxetine HCL 10 MG CAPSULE 40 MG PO (08:15)
[2025-02-24] MEDS: ENOXAPARIN SOD INJ 40 MG/0.4 ML SYRINGE SC (08:15)
[2025-02-24] MEDS: CLOPIDOGREL BISULFATE 75 MG TABLET PO (08:16)
[2025-02-24] MEDS: ASPIRIN EC 81 MG TABEC PO (08:16)
[2025-02-24] MEDS: POTASSIUM CHLORIDE 20 mEq TABCR 40 MEQ PO (08:16)
[2025-02-24] MEDS: GABAPENTIN 300 MG CAPSULE PO (08:16)
[2025-02-24] MEDS: amLODIPine BESYLATE 5 MG TABLET PO (08:16)
[2025-02-24] MEDS: PANTOPRAZOLE 40 MG TABLET PO (08:16)
[2025-02-24] MEDS: LOSARTAN POTASSIUM 25 MG TABLET 50 MG PO (08:17)
--- NOTE | 2025-02-24 09:53 | ESDS_ITS ---
<Statement entered by Oc Finley MD - 02/24/25 16:22> Patient was seen and examined at bedside. Agree on the discharge plan on this note. - Patient's plan and care discussed with my attending, Dr. Randal Finley MD Internal Medicine PGY-2 Planned Discharge Date 02/24/25 DS: Providers Provider Date of admission: 02/20/25 10:04 Primary care physician: DANIELE Holcomb Admitting Provider: Morales Villa MD Attending Provider on Admission: Jorge Tee MD Consults: 02/20/25 10:14 Consult to Cardiology Routine Comment: CHF Exacerbation Consulting Provider: Manjit Lopez 02/22/25 11:57 Referral Physical Therapy Routine Comment: Physician Instructions: Attending Provider on DC: Jorge Tee MD Discharging Provider: Williams Lion MD DS: Diagnosis Problem List Completed Was Problem List Reviewed/Reconciled?: Yes Hospital Course Hospital Course Hospital course: Ms. Enciso is a 69-year-old female with past medical history of hypertension, HFpEF (EF 55 to 60% 07/17/24), coronary artery disease status post 4 stent placement and chronic pain who presented to [facility] emergency department on 02/20/2025 with a chief complaint of shortness of breath. Patient admitted to the hospital for acute decompensated heart failure. During hospitalization she was on IV diuresis with Lasix 40 Mg IV twice daily. In total she had a fluid balance of -5.9 L. She was also assessed by cardiology who recommended outpatient cardiac catheterization due to her multivessel CAD s/p PCI x 4. Patient had transaminitis which is now resolving, a hepatitis C RNA quant was ordered and the results are pending. All patient's labs are now returning to her baseline. Patient is now clinically stable and fit for discharge to home. Discharge diagnoses: 1. Acute hypoxic respiratory failure?resolving 2. Acute decompensated heart failure exacerbation?resolving 3. Possible obesity hypoventilation syndrome 4. ACS?resolved 5. Multivessel coronary artery disease s/p PCI x 4 6. Primary hypertension 7. Hyper bilirubinemia 8. Transaminitis?resolving 9. Iron deficiency anemia Discharge plan: - We have changed the dose of your Losartan and Atorvastatin. Please take the new dose as directed below. - We have changed the dose of your Potassium tablet. Please take the new dose as directed below. - We have started you on inhalers for your wheezing. Please take as directed below. - Follow up with your primary doctor to refer you for lung function tests. - Follow up with your primary doctor for a repeat urine test for the blood in your urine. - You have anemia. Follow up with your PCP for screening colonoscopy and further anemia workup. - Follow up with your PCP for results of your Hepatitic C titres. ? Continue taking the rest of your home medications as before ? You will have to restrict your daily liquid intake to 1.5 Litres / 50 ounces per day. This includes water, teas, coffees and soups. ? You will have to follow a low salt diet for the rest of your life. This means no [place] food or fast food. ? You will have to take your weight daily. If your weight increases by more than 2-3 pounds in 1-2 days, take an extra water pill that day. ? You will have to measure your blood pressure daily. If the top number is less than 100, do not take your blood pressure medications that day. ? Keep a log of your blood pressures to take to your primary doctor and truck crane operator helper. - You will need to follow up with your Lap Welder for an angiogram as outpatient. - Follow up with your truck crane operator helper or truck crane operator helper, Dr. Orlando Lopez outpatient. His office number is [phone]. Please see a truck crane operator helper within 1-2 weeks of discharge - Follow up with your primary care physician within 1 week of discharge. If you do not have a primary care physician or cannot get an appointment in time, please follow up with the [facility] ([phone]) ? If you experience any new, worsening or persistent symptoms either call your primary doctor, or dial 911 or present to the emergency department. We are grateful to be able to participate in Ms. Enciso' care. We wish her the best. Plan of care discussed with Attending Dr. Tee and PGY 2 Dr. Tushar Lion MD PGY 1 Disclaimer: This note was dictated by speech recognition. Minor errors in patrol sergeant may be present due to voice recognition software. Time Spent with Patient Time attestation: Total time spent providing and/or coordinating discharge services: Time spent: Greater than 30 minutes (37) Exam Vital Signs Temp Pulse Resp BP Pulse Ox O2 Del Method O2 Flow Rate 96.8 F 61 25 H 126/60 98 Nasal Cannula 2 02/24/25 08:00 02/24/25 08:17 02/24/25 08:00 02/24/25 08:17 02/24/25 08:00 02/24/25 08:00 02/24/25 08:00 FiO2 28 02/24/25 01:36 Narrative Exam Constitutional Alert, oriented x 3 and comfortable HEENT Vision grossly intact. Patent nares. Trachea midline Respiratory Chest normal on inspection, scattered wheeze heard throughout all lung stacy, bibasilar crackles Cardiovascular S1 and S2 audible, RRR. No murmurs carotid bruit. No gross JVD. Abdominal Obese, soft and mildly tender to palpation in lower quadrants, BS + Genitourinary No bladder tenderness, no flank pain. Normal to palpation Musculoskeletal Extremities tone within normal limits. Anasarca up to sacrum Neurological CN II - XII grossly intact. Extremity motor and sensation grossly intact. Skin Warm, dry and intact. No apparent lesions. Psychiatric Patient has good affect, is cooperative Discharge Plan Plan Patient Disposition: HOME (Self Care) Care Plan Goals: - We have changed the dose of your Losartan and Atorvastatin. Please take the new dose as directed below. - We have changed the dose of your Potassium tablet. Please take the new dose as directed below. - We have started you on inhalers for your wheezing. Please take as directed below. - Follow up with your primary doctor to refer you for lung function tests. - Follow up with your primary doctor for a repeat urine test for the blood in your urine. - You have anemia. Follow up with your PCP for screening colonoscopy and further anemia workup. - Follow up with your PCP for results of your Hepatitic C titres. ? Continue taking the rest of your home medications as before ? You will have to restrict your daily liquid intake to 1.5 Litres / 50 ounces per day. This includes water, teas, coffees and soups. ? You will have to follow a low salt diet for the rest of your life. This means no [place] food or fast food. ? You will have to take your weight daily. If your weight increases by more than 2-3 pounds in 1-2 days, take an extra water pill that day. ? You will have to measure your blood pressure daily. If the top number is less than 100, do not take your blood pressure medications that day. ? Keep a log of your blood pressures to take to your primary doctor and truck crane operator helper. - You will need to follow up with your Lap Welder for an angiogram as outpatient. - Follow up with your truck crane operator helper or truck crane operator helper, Dr. Orlando Lopez outpatient. His office number is [phone]. Please see a truck crane operator helper within 1-2 weeks of discharge - Follow up with your primary care physician within 1 week of discharge. If you do not have a primary care physician or cannot get an appointment in time, please follow up with the [facility] clinic ([phone]) ? If you experience any new, worsening or persistent symptoms either call your primary doctor, or dial 911 or present to the emergency department. Prescriptions/Referrals Prescriptions/Med Rec: New guaifenesin 100 mg/5 mL Liquid 200 mg PO QID PRN (Reason: Cough Or Congestion) Qty: 473 0RF pantoprazole 40 mg Tablet,Delayed Release (Dr/Ec) 40 mg PO QDAY 30 Days Qty: 30 2RF lidocaine 5 % Adhesive Patch,Medicated 1 patch top UD PRN (Reason: Back Pain) Qty: 15 0RF losartan 50 mg tablet 50 mg PO QDAY 30 Days Qty: 30 3RF atorvastatin 20 mg tablet 20 mg PO QDAY 30 Days Qty: 30 3RF potassium chloride 20 mEq tablet extended release 20 meq PO QDAY 30 Days Qty: 30 0RF albuterol sulfate [Ventolin HFA] 90 mcg/actuation HFA aerosol inhaler 1 inh inhalation QID PRN (Reason: shortness of breath or wheezing) 30 Days Qty: 6.7 2RF tiotropium-olodaterol 2.5-2.5 mcg/actuation mist 2 puff inhalation QDAY 30 Days Qty: 4 0RF Continued aspirin 81 mg capsule 81 mg PO QDAY Qty: 30 0RF clonidine HCl 0.1 mg tablet 0.1 mg PO BID fluoxetine 40 mg capsule 40 mg PO BID gabapentin 300 mg capsule 300 mg PO BID cholecalciferol (vitamin D3) 125 mcg (5,000 unit) capsule 125 mcg PO DAILY Patient Comments: TAKE 1 CAPSULE BY MOUTH EVERY DAY clopidogrel 75 mg tablet 75 mg PO 1XD furosemide 40 mg tablet 40 mg PO BID Patient Comments: TAKE 1 TABLET BY MOUTH EVERY DAY sucralfate 100 mg/mL suspension 10 ml PO QID PRN (Reason: pain ) Patient Comments: TAKE 10 ML 4 TIMES A DAY BY ORAL ROUTE FOR 11 DAYS Held hydrocodone-acetaminophen 10-325 mg tablet 1 tab PO Q4HR PRN (Reason: Pain) Hold Instructions: Hold until you see your PCP Patient Comments: TAKE 1 TABLET BY MOUTH EVERY 4 HOURS FOR 7 DAYS Discontinued pantoprazole 40 mg tablet,delayed release (DR/EC) 40 mg PO BID potassium chloride 20 mEq tablet extended release 40 meq PO BID Qty: 7 0RF losartan 50 mg tablet 50 mg PO BID Qty: 60 0RF atorvastatin 80 mg tablet 80 mg PO QPM Qty: 30 0RF Referrals: Julianna Yoon FNP [Primary Care Provider] - Manjit Lopez MD [Physician] - Patient/Caregiver Discharge Instructions Education Materials: Heart Failure: Tracking Your Weight, Heart Failure: Being Active, Coping with Heart Failure, Heart Failure Dc, ED Heart Failure Congestive Right Print Language: Singaporean Stand Alone Forms: Sherita Award Info., Patient Portal Info Letter Discharge Order Discharge Orders: Discharge (Routine); Ordered 02/24/25 Ordered By: Williams Lion Quality Discharge Quality Measures VTE prophylaxis Attestestation MD Attestation I have examined the patient, reviewed labs and imaging findings, discussed the case with the resident(s), and reviewed entered orders. I agree with the plan of care as outlined in this note. Time Spent: [address] Randal MD
[2025-02-24 11:21] LABS: HCV RNA, PCR <15 NOT DETECTED IU/mL
[2025-02-27 07:18] LABS: HCV RNA, PCR Log IU <1.18 NOT DETECTED Log IU/mL
== END 2025-02-24 12:50 | disposition home or self-care (01) | DRG 291 ==
LOC: SERX 08:58 → SERHOLD 10:42 → S2NX 11:52
PROVIDERS: Internal Medicine Cardiovascular Disease; Physician Assistant; Admitting Provider Internal Medicine; Emergency Provider Emergency Medicine; PCP Nurse Practitioner; Visit Provider Student in an Organized Health Care Education/Training Program
DX: I11.0 Hypertensive heart disease with heart failure (principal); I50.33 Acute on chronic diastolic (congestive) heart failure; J96.01 Acute respiratory failure with hypoxia; J96.02 Acute respiratory failure with hypercapnia; E66.2 Morbid (severe) obesity with alveolar hypoventilation; Z68.41 Body mass index [BMI] 40.0-44.9, adult; E87.1 Hypo-osmolality and hyponatremia; E87.3 Alkalosis; I25.10 Atherosclerotic heart disease of native coronary artery without angina pectoris; B19.20 Unspecified viral hepatitis C without hepatic coma; R74.01 Elevation of levels of liver transaminase levels; G89.29 Other chronic pain; E78.5 Hyperlipidemia, unspecified; Z99.81 Dependence on supplemental oxygen; Z95.5 Presence of coronary angioplasty implant and graft; D50.9 Iron deficiency anemia, unspecified; J44.9 Chronic obstructive pulmonary disease, unspecified; K76.0 Fatty (change of) liver, not elsewhere classified; K59.00 Constipation, unspecified; K76.1 Chronic passive congestion of liver; Z79.899 Other long term (current) drug therapy; F32.A Depression, unspecified; Z87.891 Personal history of nicotine dependence; Z79.82 Long term (current) use of aspirin; Z79.02 Long term (current) use of antithrombotics/antiplatelets
CPT/HCPCS: 36415; 36600; 71045; 76705; 80053; 80061; 80074; 81001; 82728; 82803; 83036; 83540; 83550; 83735; 83880; 84100; 84443; 84484; 85025; 85610; 85730; 87400; 87522; 87811; 93005; 93306; 94640; 94660; 94664; 96374; 96375; 97161; 99285; A9270; J0171; J0461; J1643; J1650; J1938; J2250; J2270; J2310; J2371; J2405; J3010; J3475; J3480; J3490; J1920

== ENCOUNTER 2025-02-27 21:12 | Observation (INO) | payer MEDICARE, SELFPAY ==
[2025-02-27 21:13] VITALS: BMI 38.9
--- NOTE | 2025-02-27 21:26 | EKG_ITS ---
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
[2025-02-27 21:29] VITALS: BP 173/96; PULSE 83; RESP 18; TEMP 38.2; O2SAT 99
--- NOTE | 2025-02-27 21:42 | XR_ITS ---
Examination: AP chest single view TECHNIQUE: AP portable upright chest single view Exam date and time: February 27, 2025 10:35 PM Comparison February 20, 2025 INDICATIONS: Sepsis protocol two-day sepsis. FINDINGS: Mild prominence cardiac contour Mild vascular congestion. No lobar pneumonia. Moderate osteopenia IMPRESSION: No pneumonia identified
--- NOTE | 2025-02-27 21:44 | PD.EDRME ---
Rapid Medical Screening Exam [facility] Arrival date/time: 02/27/25 21:12 CC: Follow-up cough fever shortness of breath HPI patient was discharged from this facility 3 days ago, now has continued to have a persistent wet nonproductive cough, patient states she is sleeping upright in spite of 3 L nasal cannula and is consistently short of breath especially when she attempts to ambulate she becomes acutely short of breath. Patient denies chest pain. They was not is aware that she has a fever. Chief Complaint: Shortness of Breath/Dyspnea Time Seen by Provider: 02/27/25 21:38 Vital signs: Vital Signs Temperature 100.7 F H 02/27/25 21:29 Pulse Rate 83 02/27/25 21:29 Respiratory Rate 18 02/27/25 21:29 Blood Pressure 173/96 H 02/27/25 21:29 Pulse Oximetry (%) 99 02/27/25 21:29 Oxygen Delivery Method Nasal Cannula 02/27/25 21:29 Oxygen Flow Rate 3 02/27/25 21:29
[2025-02-27] MEDS: cefTRIAXone/D5w 1gm IV premix 1 GM/50 ML BAG IV (22:21)
[2025-02-27 22:22] LABS: Lactate (Lactic Acid) 2.1 mMol/L (0.4-2.0)
[2025-02-27 22:28] LABS: Basophils % (Auto) 0 % (0-2.5); Eosinophils # (Auto) 0.2 Thou/mm3 (0.0-0.5); Eosinophils % (Auto) 2 % (0-10); Hematocrit 34.5 % (36.0-46.0); Hemoglobin 10.6 g/dL (12.0-16.0); Immature Granulocytes % (Auto) 1 % (0-0); Immature Granulocytes Auto 0.05 Thou/mm3 (0.00-0.00); Lymphocytes # (Auto) 0.7 Thou/mm3 (1.0-4.8); Lymphocytes % (Auto) 9 % (10-50); Mean Corpuscular HGB Conc 30.7 g/dl (31.0-37.0); Mean Corpuscular Hemoglobin 26.1 pg (25.0-35.0); Mean Corpuscular Volume 85 fL (80-100); Monocytes # (Auto) 0.7 Thou/mm3 (0.0-0.8); Monocytes % (Auto) 8 % (0-12); Neutrophils # (Auto) 6.5 Thou/mm3 (1.8-7.7); Neutrophils % (Auto) 80 % (37-80); Nucleated Red Blood Cell % 0 /100 WBC (0); Platelet Count 282 Thou/mm3 (140-440); RDW Standard Deviation 53.5 fL (36.4-46.3); Red Blood Count 4.06 Miln/mm3 (4.00-5.20); White Blood Count 8.1 Thou/mm3 (3.6-11.0)
[2025-02-27 22:35] LABS: INR 1.1 (0.9-1.3); Partial Thromboplastin Time 26.5 Seconds (22.0-36.0); Prothrombin Time 11.8 Seconds (9.0-12.2)
[2025-02-27 22:46] LABS: B-Type Natriuretic Peptide 395 pg/mL (0-100)
[2025-02-27 22:52] LABS: Alanine Aminotransferase 82 U/L (10-49); Albumin, Serum 4.2 gm/dL (3.4-4.8); Albumin/Globulin Ratio 1.4 (1.2-2.2); Alkaline Phosphatase 221 U/L (46-116); Anion Gap 6 (7-16); Aspartate Amino Transferase 41 U/L (0-34); BUN/Creatinine Ratio 18 Ratio (12-20); Bilirubin,Total 1.1 mg/dL (0.3-1.2); Blood Urea Nitrogen 16 mg/dL (9-23); Calcium 8.8 mg/dL (8.3-10.6); Calcium (Corrected) 8.8 mg/dL (8.5-10.1); Carbon Dioxide 29.9 mMol/L (20.0-31.0); Chloride 101 mMol/L (98-107); Creatinine (Component) 0.9 mg/dL (0.6-1.3); Estimated Creatinine Clearance 75.9 mL/min (>60); Glucose 100 mg/dL (74-106); LDH (Lactate Dehydrogenase) 227 U/L (120-246); Lipase 41 U/L (12-53); Magnesium 1.8 mg/dL (1.6-2.6); Osmolality,Calculated 275 (275-295); Phosphorous 2.7 mg/dL (2.4-5.1); Potassium 4.6 mMol/L (3.4-5.1); Sodium 137 mMol/L (136-145); Total Protein 7.2 gm/dL (5.7-8.2); Troponin I 0.021 ng/mL (0.0-0.045); eGFR > 60 See Note
[2025-02-27 22:57] LABS: Procalcitonin 0.14 ng/ml (0.0-0.49)
[2025-02-27 23:57] VITALS: BP 156/63; PULSE 67; RESP 18; TEMP 38.7; O2SAT 99
[2025-02-28] VITALS (16 sets, daily range): BP systolic 133–178; BP diastolic 55–94; PULSE 48–98; RESP 16–97; TEMP 36.1–38.7; O2SAT 97–100; BMI 39.4
[2025-02-28] MEDS: ACETAMINOPHEN IVPB 1,000 MG/100 ML VIAL 250 MG IV (00:52)
[2025-02-28] MEDS: IBUPROFEN TAB 600 MG TABLET PO (00:52)
--- NOTE | 2025-02-28 01:06 | PD.EDADULT ---
ED General RME/HPI General Chief complaint: Shortness of Breath/Dyspnea Stated complaint: SOB HX OF CHF Time Seen by Provider: 02/27/25 21:38 Arrival date/time: 02/27/25 21:12 RME / HPI RME / HPI narrative: This patient is a 69-year-old female with past medical history of hypertension, HFpEF EF 55%, CAD s/p stents on Plavix, chronic pain presented to the ED with 3-day history of productive cough, fever spike 101 and worsening shortness of breath. Patient reported that she had productive cough with white phlegm for last 1 week and she came to the ER however her symptoms did not improve at that time. She is not able to lay down flat in the bed and is using oxygen at home around 2 L. Patient is drinking 1500 mL of water every day. She is also compliant with her medications. Per patient, patient was hypoxic around 86% at home despite on oxygen. She endorses burning sensation in dysuria from past 1 week. She denies any abdominal discomfort, nausea, or lightheadedness. Per patient, she had an episode of vomiting last week. Initial vitals showed blood pressure 173/96, pulse 83, respiratory rate 18 and fever of 100.7. Patient was saturating 90% on 3 L nasal cannula. Sepsis alert was initiated due to fever, relative leukocytosis as previous white count 4.4 from 02/24 increased to 8.1. Labs showed white count 8.1, hemoglobin 10.6. Platelet count 282. INR 1.1. CHEM panel unremarkable. Kidney function stable BUN 16 and creatinine 0.9. Lactic acidosis. Lactic acid 2.1. Phosphorus 2.7. Magnesium 1.8. Mildly elevated liver enzymes ALT 82, AST 41, ALP 221. Troponin I 0.021. BNP 395. Lipase was negative. Procalcitonin 0.14. Chest x-ray only showed mild vascular congestion without pneumonia. EKG showed sinus rhythm with right axis deviation. QTc 419. COVID and flu test were negative. Currently urinalysis is pending. Blood cultures were sent. PMH: As above PSH: Cardiac stents placement, joint replacement, arthroscopy, hysterectomy SH: Quit smoking more than 30 years ago. Denies drinking alcohol. No history of illicit drug use Allergies: Hydralazine causes anxiety,sulfa causes rash Patient was given one-time dose of Rocephin and azithromycin along with Lasix 40 mg IV x 1. Curb 65 was 1. Patient will need to be under observation for a day or 2 until patient is afebrile for 24 hours and possible source of sepsis is ruled out along with management of mild acute on chronic CHF. Hospitalist team were informed and they will admit the patient. MD complaint: Worsening shortness of breath with cough and fever Onset (ago): week(s) (1) Associated symptoms: fever/chills, shortness of breath and weakness Related Data Home Medications ?Medication ?Instructions ?Recorded ?Confirmed furosemide 40 mg tablet 40 mg PO BID 08/07/23 02/20/25 sucralfate 100 mg/mL oral 10 ml PO QID PRN pain 08/07/23 02/20/25 suspension cholecalciferol (vitamin D3) 125 125 mcg PO DAILY 09/10/23 02/20/25 mcg (5,000 unit) capsule clonidine HCl 0.1 mg tablet 0.1 mg PO BID 09/10/23 02/20/25 fluoxetine 40 mg capsule 40 mg PO BID 09/10/23 02/20/25 gabapentin 300 mg capsule 300 mg PO BID 09/10/23 02/20/25 hydrocodone 10 mg-acetaminophen 1 tab PO Q4HR PRN Pain 09/10/23 08/24/24 325 mg tablet Held on 02/24/25. Instructions: Hold until you see your PCP clopidogrel 75 mg tablet 75 mg PO 1XD 07/24/24 02/20/25 Previous Rx's ?Medication ?Instructions ?Recorded aspirin 81 mg capsule 81 mg PO QDAY #30 caps 03/07/22 albuterol sulfate 90 mcg/actuation 1 inh inhalation QID PRN shortness 02/24/25 aerosol inhaler (Ventolin HFA) of breath or wheezing 1 month #6.7 grams atorvastatin 20 mg tablet 20 mg PO QDAY 1 month #30 tabs 02/24/25 guaifenesin 100 mg/5 mL oral liquid 200 mg (10 mL) PO QID PRN Cough Or 02/24/25 Congestion #473 mL lidocaine 5 % topical patch 1 patch top UD PRN Back Pain #15 ea 02/24/25 losartan 50 mg tablet 50 mg PO QDAY 1 month #30 tabs 02/24/25 pantoprazole 40 mg tablet,delayed 40 mg PO QDAY 30 days #30 tabs 02/24/25 release potassium chloride 20 mEq 20 meq PO QDAY 1 month #30 tabs 02/24/25 tablet,extended release tiotropium 2.5 mcg-olodaterol 2.5 2 puff inhalation QDAY 1 month #4 02/24/25 mcg/actuation mist for inhalation grams Allergies Allergy/AdvReac Type Severity Reaction Status Date / Time hydralazine Allergy Severe Anxiety Verified 08/25/24 05:02 Sulfa (Sulfonamide Allergy Severe Rash Verified 07/24/24 04:10 Antibiotics) Review of Systems Review of Systems Systems Reviewed: All systems reviewed, normal except as documented ED Exam Narrative Physical exam: GENERAL APPEARANCE: AxOx4, generally well-appearing female in no acute distress.sat well on 3 L NC HEENT: NC, AT. MMM. EOMI, clear conjunctiva, oropharynx clear. NECK: Supple without lymphadenopathy. No stiffness or restricted ROM. Mild JVD. HEART: Mild tachycardia with regular rhythm, normal S1/S2, no m/r/g LUNGS: Bilateral decreased breath sound on auscultation. ABDOMEN: Soft, nontender, nondistended with good bowel sounds heard. BACK: No CVAT, no obvious deformity. EXTREMITIES: Bilateral pitting edema 2+ NEUROLOGICAL: Grossly nonfocal. Alert and oriented, moving all 4 extremities. CN not formally tested but appear grossly intact. Observed to ambulate with normal gait. Skin: Warm and dry without any rash. Psych: Appropriate mood and affect Course Quality Measures none Orders Category Date Time Status Bedside COVID-19 Antigen Test NOW Care 02/28/25 00:47 Completed Bedside Influenza A&B Antigen Test NOW Care 02/27/25 21:43 Completed COVID-19 Screening Questionnaire NOW Care 02/28/25 01:40 Ordered Imaging Technologist STAT Care 02/27/25 21:42 Active Continuous Pulse Oximetry STAT Care 02/27/25 21:42 Completed Decision to Admit X1 Care 02/28/25 01:40 Ordered EKG (ED ONLY) *Do not use* NOW Care 02/27/25 21:26 Completed Fluid restriction QDAY Care 02/28/25 01:03 Active In and Out Catheter X1PRN Care 02/27/25 21:42 Active Insert IV NOW Care 02/27/25 21:42 Active NPO STAT Care 02/27/25 21:42 Active Strict Intake and Output Routine Care 02/27/25 21:42 Ordered EKG (ED Only) Stat Exams 02/27/25 21:26 Draft XR chest 1V SEPSIS PROTOCOL Stat Exams 02/27/25 21:42 Completed B-Type Natriuretic Peptide Stat Lab 02/27/25 22:07 Completed Blood Culture (Lab) Stat Lab 02/27/25 22:12 Received CBC Stat Lab 02/27/25 22:07 Completed Comprehensive Metabolic Panel Stat Lab 02/27/25 22:07 Completed LDH (Lactate Dehydrogenase) Stat Lab 02/27/25 22:07 Completed Lactate (Lactic Acid) Stat Lab 02/27/25 22:07 Completed Lactic Acid, 3 HR Stat Lab 02/28/25 01:18 Ordered Lipase Stat Lab 02/27/25 22:07 Completed Magnesium Stat Lab 02/27/25 22:07 Completed Partial Thromboplastin Time Stat Lab 02/27/25 22:07 Completed Phosphorous Stat Lab 02/27/25 22:07 Completed Procalcitonin Stat Lab 02/27/25 22:07 Completed Prothrombin Time with INR Stat Lab 02/27/25 22:07 Completed Troponin I Stat Lab 02/27/25 22:07 Completed Urinalysis Stat Lab 02/27/25 21:42 Ordered Urine Culture Stat Lab 02/27/25 21:42 Ordered VBG [Venous Blood Gas] Stat Lab 02/28/25 01:32 Ordered Acetaminophen Ivpb [Ofirmev Inj] Med 02/28/25 00:30 Discontinued 1,000 mg in 100 ml IV X1 Azithromycin Inj [Zithromax Inj] 500 mg Med 02/28/25 01:02 Active Sodium Chloride 0.9% 250 ml [Ns] 250 ml IV X1 Furosemide Inj [Lasix Inj] Med 02/28/25 01:02 Discontinued 40 mg IVP X1 ONE Ibuprofen Tab [Motrin Tab] Med 02/28/25 00:30 Discontinued 600 mg PO X1 ONE Magnesium Sulfate 2 GM Ivpb [Magnesium Sulfate Ivpb] Med 02/28/25 01:05 Active 2 gm in 50 ml IV X1 cefTRIAXone/D5w 1gm IV premix [Rocephin/D5w 1gm IV Med 02/27/25 21:42 Discontinued premix] 1 gm in 50 ml IV X1 Oxygen Delivery NOW RT 02/27/25 21:42 Active Vital Signs Vital signs: Vital Signs Temperature 100.7 F H 02/27/25 21:29 Pulse Rate 83 02/27/25 21:29 Respiratory Rate 18 02/27/25 21:29 Blood Pressure 173/96 H 02/27/25 21:29 Pulse Oximetry (%) 99 02/27/25 21:29 Oxygen Delivery Method Nasal Cannula 02/27/25 21:29 Oxygen Flow Rate 3 02/27/25 21:29 Discharge Plan Plan Patient Disposition: Admit Acute Care w/in Hospital Prescriptions/Referrals Prescriptions/Med Rec: No Action aspirin 81 mg capsule 81 mg PO QDAY Qty: 30 0RF clonidine HCl 0.1 mg tablet 0.1 mg PO BID fluoxetine 40 mg capsule 40 mg PO BID gabapentin 300 mg capsule 300 mg PO BID cholecalciferol (vitamin D3) 125 mcg (5,000 unit) capsule 125 mcg PO DAILY Patient Comments: TAKE 1 CAPSULE BY MOUTH EVERY DAY hydrocodone-acetaminophen 10-325 mg tablet 1 tab PO Q4HR PRN (Reason: Pain) Patient Comments: TAKE 1 TABLET BY MOUTH EVERY 4 HOURS FOR 7 DAYS clopidogrel 75 mg tablet 75 mg PO 1XD guaifenesin 100 mg/5 mL Liquid 200 mg PO QID PRN (Reason: Cough Or Congestion) Qty: 473 0RF pantoprazole 40 mg Tablet,Delayed Release (Dr/Ec) 40 mg PO QDAY 30 Days Qty: 30 2RF lidocaine 5 % Adhesive Patch,Medicated 1 patch top UD PRN (Reason: Back Pain) Qty: 15 0RF losartan 50 mg tablet 50 mg PO QDAY 30 Days Qty: 30 3RF atorvastatin 20 mg tablet 20 mg PO QDAY 30 Days Qty: 30 3RF potassium chloride 20 mEq tablet extended release 20 meq PO QDAY 30 Days Qty: 30 0RF albuterol sulfate [Ventolin HFA] 90 mcg/actuation HFA aerosol inhaler 1 inh inhalation QID PRN (Reason: shortness of breath or wheezing) 30 Days Qty: 6.7 2RF tiotropium-olodaterol 2.5-2.5 mcg/actuation mist 2 puff inhalation QDAY 30 Days Qty: 4 0RF furosemide 40 mg tablet 40 mg PO BID Patient Comments: TAKE 1 TABLET BY MOUTH EVERY DAY sucralfate 100 mg/mL suspension 10 ml PO QID PRN (Reason: pain ) Patient Comments: TAKE 10 ML 4 TIMES A DAY BY ORAL ROUTE FOR 11 DAYS Referrals: Vladimir Garvin MD [Primary Care Provider] - In 1 week Problem List Clinical Impression: Acute dyspnea, Heart failure, Sepsis Patient/Caregiver Discharge Instructions Print Language: St Helenian Stand Alone Forms: Sherita Award Info., Patient Portal Info Letter MDM Medication Administration(s) Medication Administration History Azithromycin 500 mg/ Sodium (Chloride) 250 mls @ 250 mls/hr IV X1 ONE Stop: 02/28/25 02:01 Last Admin: 02/28/25 01:24 Dose: 250 mls/hr Documented By: CCT Magnesium Sulfate (Magnesium Sulfate Ivpb) 2 gm in 50 mls @ 25 mls/hr IV X1 ONE Stop: 02/28/25 03:04 Discontinued Medications Furosemide (Furosemide Inj 10 Mg/Ml 4ml Vial) 40 mg IVP X1 ONE Stop: 02/28/25 01:03 Last Admin: 02/28/25 01:24 Dose: 40 mg Documented By: CCT Ceftriaxone Sodium/Dextrose (Rocephin/D5w 1gm Iv Premix) 1 gm in 50 mls @ 100 mls/hr IV X1 ONE Stop: 02/27/25 22:11 Last Infusion: 02/28/25 00:02 Dose: Infused Documented By: Admin: 02/27/25 22:21 Dose: 100 mls/hr Documented By: DB Acetaminophen (Ofirmev Inj) 1,000 mg in 100 mls @ 250 mls/hr IV X1 ONE Stop: 02/28/25 00:53 Last Admin: 02/28/25 00:52 Dose: 250 mls/hr Documented By: CCT Ibuprofen (Ibuprofen Tab 600 Mg Tablet) 600 mg PO X1 ONE Stop: 02/28/25 00:31 Last Admin: 02/28/25 00:52 Dose: 600 mg Documented By: CCT
[2025-02-28 01:18] LABS: Reflex Lactate? Y
[2025-02-28] MEDS: FUROSEMIDE INJ 10 MG/ML 4ML VIAL 40 MG IVP ×3 (01:24→17:44)
[2025-02-28] MEDS: AZITHROMYCIN INJ 500 MG in SODIUM CHLORIDE 0.9% 250 ML 250 ML 250 MG IV (01:24)
[2025-02-28 01:46] LABS: Base Excess, Venous 5 (-3-3); Lactic Acid, 3 HR 0.6 mMol/L (0.4-2.0); O2 Saturation, Venous 95 % (96-97); PCO2, Venous 41 mmHg (36-56); PO2, Venous 70 mmHg (15-58); pH, Venous 7.46 (7.33-7.66)
[2025-02-28] MEDS: Magnesium Sulfate 2 GM Ivpb 2 GM/50 ML BAG IV (01:53)
--- NOTE | 2025-02-28 02:05 | PD.RESHP ---
Documentation for date of: 02/28/25 [facility] History of Present Illness History of present illness: Patient is a 69-year-old female with a past medical history of coronary artery disease status post PCI, HFpEF, hypertension, COPD on 2 L o2 at night, multiple joint surgeries and chronic pain who presented to emergency department due to fever and shortness of breath. Patient stated she was in usual state of health, discharged from hospital few days ago, now complaining of sudden onset fever starting late afternoon. Associated with subjective feeling of respiratory distress, patient takes 2 L oxygen at home only at night time, but was feeling short of breath so decided to come to the emergency room. Denied sick contacts, endorsed cough. The patient was found to be saturating 85% initially, but now symptoms resolved and she is saturating well on room air. Denied abdominal pain or diarrhea, denied vomiting, endorsed urinary discomfort. The patient will be admitted to the medical floor under observation due to persistent fever, possible UTI. Of note, the patient is pending a coronary angiogram on elective basis in [address] Palacios, denied any current chest pain, dyspnea improved. PMH : coronary artery disease status post PCI, HFpEF, hypertension, multiple joint surgeries Surgical XH: Cholecystectomy, hystecetomy, multiple Knee joint and Cervical spine surgeries. Social: denies smoking or drinking, remote hx of smoking quit in 1984. Review of Systems Review of Systems Systems Reviewed: All systems reviewed, normal except as documented Past Medical History Past Medical History NEUROLOGIC: Positive Head Trauma; Negative Neurological Disorders, Seizures, Hutton's Palsy or Migraine CARDIAC: Positive Cardiac Disorders, Angina, Heart Murmur, Coronary Artery Disease, Atherosclerotic Heart Disease, Peripheral Vascular Disease, Congestive Heart Failure, Edema, Cellulitis and Hypertension; Negative Hypercholesterolemia RESPIRATORY: Positive Chronic Obstructive Pulmonary Disease (COPD), Asthma, Pneumonia and Smoking; Negative Tuberculosis, Pulmonary Embolism or Sleep Apnea GASTROINTESTINAL: Positive Gastrointestinal Disorders, Hepatitis, Cirrhosis, Gall Bladder Disease, Ulcer, Hiatal Hernia, Hemorrhoids, Gastroesophageal Reflux Disease and Obesity; Negative Gastrointestinal Bleed GENITOURINARY: Negative Genitourinary Disorders, Renal Disease, Kidney Stones or Inguinal Hernia MUSCULOSKELETAL: Positive Musculoskeletal Disorders, Arthritis, Osteoporosis, Degenerative Disk Disease, Scoliosis, Carpal Tunnel Syndrome and Fractures; Negative Muscular Dystrophy, Myasthenia Gravis or Degenerative Joint Disease ENT: Positive Head Trauma ENDOCRINE: Negative Endocrine Disorders, Diabetes Mellitus Type 1, Diabetes Mellitus Type 2, [place]'s Syndrome, [place]'s Disease or Hyperthyroidism HEMATOLOGIC: Negative Blood Disorders or Sickle Cell Disease PSYCHO/SOCIAL: Positive Depression and Anxiety OTHER HISTORY: Positive Hospitalization, Shingles, Falls, Chicken Pox, Measles, Hepatitis A and Hepatitis C; Negative Autoimmune Disease, Blood Transfusions, Blood Transfusion Reaction, Anesthesia Reactions, Organ Transplant, Chemotherapy, Radiation Therapy, MRSA or Cancer Family History FAMILY HISTORY: Positive Family Respiratory Disorders, Family Cardiac Disorders, Family Gastrointestinal Problems, Family Cancer and Family Surgery; Negative Family Psychiatric Problems or Family Anesthesia Reaction Surgical History SURGICAL: Positive Cardiac Surgery, Coronary Stent, Angiogram, Abdominal Surgery, Joint Replacement, Arthroscopy and Hysterectomy; Negative Pacemaker, Ear Surgery, Neurologic Surgery, Brain Shunt or Organ Transplant Social History SMOKING STATUS: Never smoker SECOND HAND EXPOSURE: No SUBSTANCE USE: does not use Exam Vital Signs Temp Pulse Resp BP Pulse Ox O2 Del Method O2 Flow Rate 101.6 F H 85 18 148/68 H 98 Nasal Cannula 3 02/28/25 00:52 02/28/25 01:24 02/27/25 23:57 02/28/25 01:24 02/28/25 00:07 02/27/25 23:57 02/28/25 00:07 Narrative Exam Constitutional Alert, oriented x 3 and comfortable, saturating 95 % on room air, facial hair present HEENT Vision grossly intact. Patent nares. Trachea midline Respiratory Chest normal on inspection, no added sounds on auscultation Cardiovascular S1 and S2 audible, RRR. Systolic Murmur left sternal border grade 3/6, No gross JVD. Abdominal Obese, soft and mildly tender to palpation in lower quadrants, BS + Genitourinary No bladder tenderness, no flank pain. Normal to palpation Musculoskeletal Extremities tone within normal limits. Pedal edema 2+ Neurological CN II - XII grossly intact. Extremity motor and sensation grossly intact. Skin Warm, dry and intact. No apparent lesions. Psychiatric Patient has good affect, is cooperative Results: Labs 02/27/25 22:07 02/27/25 22:07 Labs: Short CBC 02/27/25 Range/Units 22:07 WBC 8.1 D (3.6-11.0) Thou/mm3 Hgb 10.6 L (12.0-16.0) g/dL Hct 34.5 L (36.0-46.0) % Plt Count 282 (140-440) Thou/mm3 BMP 02/27/25 22:07 Sodium 137 Potassium 4.6 Chloride 101 Carbon Dioxide 29.9 BUN 16 Creatinine 0.9 Glucose 100 Calcium 8.8 Cardiac Enzymes 02/27/25 Range/Units 22:07 Troponin I 0.021 (0.0-0.045) ng/mL Liver Function 02/27/25 Range/Units 22:07 Total Bilirubin 1.1 (0.3-1.2) mg/dL AST 41 H (0-34) U/L ALT 82 H (10-49) U/L Alkaline Phosphatase 221 H (46-116) U/L Albumin 4.2 (3.4-4.8) gm/dL ABG Interpretation ABG results: 02/28/25 01:34 VBG pH 7.46 VBG pCO2 41 VBG pO2 70 H VBG Base Excess 5 H Quality Measures Quality Measures none Advance care planning discussed with:: patient Medications Home Medications and Allergies Home Medications ?Medication ?Instructions ?Recorded ?Confirmed ?Type furosemide 40 mg tablet 40 mg PO BID 08/07/23 02/20/25 History sucralfate 100 mg/mL oral 10 ml PO QID PRN pain 08/07/23 02/20/25 History suspension cholecalciferol (vitamin D3) 125 125 mcg PO DAILY 09/10/23 02/20/25 History mcg (5,000 unit) capsule clonidine HCl 0.1 mg tablet 0.1 mg PO BID 09/10/23 02/20/25 History fluoxetine 40 mg capsule 40 mg PO BID 09/10/23 02/20/25 History gabapentin 300 mg capsule 300 mg PO BID 09/10/23 02/20/25 History hydrocodone 10 mg-acetaminophen 1 tab PO Q4HR PRN Pain 09/10/23 08/24/24 History 325 mg tablet Held on 02/24/25. Instructions: Hold until you see your PCP clopidogrel 75 mg tablet 75 mg PO 1XD 07/24/24 02/20/25 History Allergies Allergy/AdvReac Type Severity Reaction Status Date / Time hydralazine Allergy Severe Anxiety Verified 08/25/24 05:02 Sulfa (Sulfonamide Allergy Severe Rash Verified 07/24/24 04:10 Antibiotics) Visit Medications Magnesium Sulfate (Magnesium Sulfate Ivpb) 2 gm in 50 mls @ 25 mls/hr IV X1 ONE Stop: 02/28/25 03:04 Last Admin: 02/28/25 01:53 Dose: 25 mls/hr Discontinued Medications Furosemide (Furosemide Inj 10 Mg/Ml 4ml Vial) 40 mg IVP X1 ONE Stop: 02/28/25 01:03 Last Admin: 02/28/25 01:24 Dose: 40 mg Guaifenesin (Guaifenesin Syrup 200 Mg/10 Ml Udc) 200 mg PO X1 ONE; Protocol Stop: 02/28/25 01:55 Ceftriaxone Sodium/Dextrose (Rocephin/D5w 1gm Iv Premix) 1 gm in 50 mls @ 100 mls/hr IV X1 ONE Stop: 02/27/25 22:11 Last Infusion: 02/28/25 00:02 Dose: Infused Acetaminophen (Ofirmev Inj) 1,000 mg in 100 mls @ 250 mls/hr IV X1 ONE Stop: 02/28/25 00:53 Last Infusion: 02/28/25 01:16 Dose: Infused Azithromycin 500 mg/ Sodium (Chloride) 250 mls @ 250 mls/hr IV X1 ONE Stop: 02/28/25 02:01 Last Admin: 02/28/25 01:24 Dose: 250 mls/hr Ibuprofen (Ibuprofen Tab 600 Mg Tablet) 600 mg PO X1 ONE Stop: 02/28/25 00:31 Last Admin: 02/28/25 00:52 Dose: 600 mg Assessment & Plan Plan Patient is a 69-year-old female with a past medical history of coronary artery disease status post PCI, HFpEF, hypertension, COPD on 2 L o2 at night, multiple joint surgeries and chronic pain who presented to emergency department due to fever and shortness of breath. Patient stated she was in usual state of health, discharged from hospital few days ago, now complaining of sudden onset fever starting late afternoon. Associated with subjective feeling of respiratory distress, patient takes 2 L oxygen at home only at night time, but was feeling short of breath so decided to come to the emergency room. Denied sick contacts, endorsed cough. The patient was found to be saturating 85% initially, but now symptoms resolved and she is saturating well on room air. Denied abdominal pain or diarrhea, denied vomiting, endorsed urinary discomfort. The patient will be admitted to the medical floor under observation due to persistent fever, possible UTI. Of note, the patient is pending a coronary angiogram on elective basis in [address] Palacios, denied any current chest pain, dyspnea improved. PMH : coronary artery disease status post PCI, HFpEF, hypertension, multiple joint surgeries Surgical XH: Cholecystectomy, hystecetomy, multiple Knee joint and Cervical spine surgeries. Social: denies smoking or drinking, remote hx of smoking quit in 1984. #Fever #Possible Pneumonia #Possible UTI Sudden onset fever, recent hospitatlizatiopn, ROS posotive only for dysuria and respiratiory distress. Sepsis alert called in ER, given ceftriaxone and azithromycin in the ER. - UA pending - Tylenol for fever - Follow microbilogy results - IV ceftriaxone and PO azithromycin started #Acute hypoxic respiratory failure?resolving #CHF Reported subjective shortness of breath on arrival, takes 2 L home oxygen only at night, reports history of COPD, takes albuterol inhaler at home, also HfpEFmight be contributing to symptoms. - IV Lasix 40mg BID - Supplemental O2 - Duo nebs Prn #Hx of CAD s/p PCi resume asprin and plavix, atorvastatin - Of note, the patient is pending a coronary angiogram on elective basis in [address] Palacios, denied any current chest pain, dyspnea improved. #Hx of chronic pain #Hx of hypertension, #hx of COPD Patient is on 2 L o2 at night, ordered duonebz prn - Resume home meds #Hx of multiple joint surgeries and chronic pain - Resume home meds Plan of care discussed with attending Dr Prem Landon pgy 2 Attending Provider Attestation/Addendum Pt was evaluated and plan formulated together with the housestaff team. I have reviewed the residents note above and agree with most of its content. Please refer to the residents note for additional details.
[2025-02-28] MEDS: guaiFENesin SYRUP 200 MG/10 ML UDC PO (02:43)
[2025-02-28 02:50] LABS: Collection Type, Urine Clean Catch
[2025-02-28 02:55] LABS: Bilirubin,Urine Negative (Negative); Blood,Urine Negative (Negative); Clarity,Urine Clear (Clear/Hazy); Color,Urine Lt-Yellow (Lt Yel-Yel); Glucose, Urine Negative (Negative); Ketones,Urine Negative (Negative); Leukocyte Esterase,Urine Positive (Negative); Nitrite,Urine Negative (Negative); PH,Urine 7.5 (5.0-7.0); Protein,Urine Negative (Neg - Trace); RBC,Urine 2 /hpf (0-3); Specific Gravity,Urine 1.015 (1.001-1.035); Squamous Epithelial Cell,Urine 1 /hpf (0-5); Urobilinogen,Urine Negative mg/dL (0.0-1.0); WBC,Urine 26 /hpf (0-5)
--- NOTE | 2025-02-28 04:27 | PC.NURSE ---
Report given ANY [facility]
[2025-02-28 05:49] LABS: Basophils % (Auto) 1 % (0-2.5); Eosinophils # (Auto) 0.1 Thou/mm3 (0.0-0.5); Eosinophils % (Auto) 2 % (0-10); Hematocrit 30.7 % (36.0-46.0); Hemoglobin 9.5 g/dL (12.0-16.0); Immature Granulocytes % (Auto) 1 % (0-0); Immature Granulocytes Auto 0.04 Thou/mm3 (0.00-0.00); Lymphocytes % (Auto) 16 % (10-50); Mean Corpuscular HGB Conc 30.9 g/dl (31.0-37.0); Mean Corpuscular Volume 84 fL (80-100); Monocytes # (Auto) 0.7 Thou/mm3 (0.0-0.8); Monocytes % (Auto) 11 % (0-12); Neutrophils # (Auto) 4.4 Thou/mm3 (1.8-7.7); Neutrophils % (Auto) 71 % (37-80); Nucleated Red Blood Cell % 0 /100 WBC (0); Platelet Count 225 Thou/mm3 (140-440); RDW Standard Deviation 52.4 fL (36.4-46.3); Red Blood Count 3.66 Miln/mm3 (4.00-5.20); White Blood Count 6.3 Thou/mm3 (3.6-11.0)
[2025-02-28 06:12] LABS: INR 1.1 (0.9-1.3); Prothrombin Time 11.9 Seconds (9.0-12.2)
--- NOTE | 2025-02-28 06:26 | EKG_ITS ---
[facility] Test Date: 2025-02-28 Pat Name: EMERALD REY [facility] Female [employer]: JULIAN : 1955 Requested By: Jorge Landon Order Number: [id number] Reading MD: Jorge Landon Measurements Intervals [place] Rate: 47 P: 80 PA: 197 QRS: 94 QRSD: 98 T: 114 QT: 545 QTc: 485 Interpretive Statements SINUS BRADYCARDIA BORDERLINE RIGHT AXIS DEVIATION PROLONGED QT INTERVAL Compared to ECG 02/27/2025 21:31:39 Prolonged QT interval now present Sinus rhythm no longer present /store/S0/[id number].pdf
[2025-02-28 06:40] LABS: Alanine Aminotransferase 66 U/L (10-49); Albumin, Serum 3.7 gm/dL (3.4-4.8); Alkaline Phosphatase 189 U/L (46-116); Anion Gap 7 (7-16); Aspartate Amino Transferase 31 U/L (0-34); BUN/Creatinine Ratio 15 Ratio (12-20); Bilirubin,Direct 0.5 mg/dL (0.0-0.3); Bilirubin,Total 1.1 mg/dL (0.3-1.2); Blood Urea Nitrogen 15 mg/dL (9-23); Calcium 8.4 mg/dL (8.3-10.6); Carbon Dioxide 29.7 mMol/L (20.0-31.0); Cardiac Risk Estimate 3.3 RATIO (3.7-5.6); Chloride 102 mMol/L (98-107); Cholesterol 91 mg/dL (132-200); Estimated Creatinine Clearance 68.8 mL/min (>60); Glucose 109 mg/dL (74-106); HDL Cholesterol 28 mg/dL (40-60); LDL Cholesterol,Calculated 50 mg/dL (0-130); Magnesium 2.3 mg/dL (1.6-2.6); Osmolality,Calculated 279 (275-295); Phosphorous 3.8 mg/dL (2.4-5.1); Potassium 4.1 mMol/L (3.4-5.1); Sodium 139 mMol/L (136-145); Thyroid Stimulating Hormone 2.86 uIU/mL (0.55-4.78); Total Protein 6.4 gm/dL (5.7-8.2); Triglycerides 66 mg/dL (30-150); eGFR > 60 See Note
--- NOTE | 2025-02-28 06:42 | PC.NURSE ---
called Dr. Landon regarding patient's diet order and that patient's heart rate went down to 48 and sustaining in the 50s. Patient is awake and alert, asymptomatic. Patient was awake when HR went down to 48. Per MD to order cardiac diet with 1500 cc/ day fluid restriction, and to make patient med tele.
[2025-02-28] MEDS: FLUoxetine HCL 10 MG CAPSULE 40 MG PO (08:19)
[2025-02-28] MEDS: GABAPENTIN 300 MG CAPSULE PO ×2 (08:19→20:39)
[2025-02-28] MEDS: HEPARIN SOD INJ 5000 UNIT/ML VIAL SC ×2 (08:19→20:37)
[2025-02-28] MEDS: ASPIRIN EC 81 MG TABEC PO (08:19)
[2025-02-28] MEDS: CLOPIDOGREL BISULFATE 75 MG TABLET PO (08:19)
--- NOTE | 2025-02-28 11:12 | PD.RESPRO ---
Documentation for date of: 02/28/25 Subjective Subjective Interval history: Patient was seen and examined at bedside this AM. No acute exents overnight. Patient tolerating diet, adequate urine output and mentation is at baseline. Patient endorses improvement of dysuria. No temperature spikes overnight. Patient states that her main reason for presenting to the ED was orthopnea and PND which has now resolved due to her sleeping at a 35 degree angle. Pending blood and urine cultures. Exam Vital Signs Temp Pulse Resp BP Pulse Ox O2 Del Method O2 Flow Rate 97.5 F 50 L 18 139/75 H 100 Nasal Cannula 2 02/28/25 08:00 02/28/25 08:00 02/28/25 08:00 02/28/25 08:00 02/28/25 08:00 02/28/25 08:00 02/28/25 08:00 Narrative Exam Constitutional Alert, oriented x 3 and comfortable, saturating 95 % on room air, facial hair present HEENT Vision grossly intact. Patent nares. Trachea midline Respiratory Chest normal on inspection, lungs clear to auscultation bilaterally Cardiovascular S1 and S2 audible, RRR. Systolic Murmur left sternal border grade 3/6, No gross JVD. Abdominal Obese, soft and mildly tender to palpation in lower quadrants, BS + Genitourinary No bladder tenderness, no flank pain. Normal to palpation Musculoskeletal Extremities tone within normal limits. Pedal edema 2+ Neurological CN II - XII grossly intact. Extremity motor and sensation grossly intact. Skin Warm, dry and intact. No apparent lesions. Psychiatric Patient has good affect, is cooperative Objective Labs 02/28/25 05:04 02/28/25 05:04 Labs: Laboratory Results - last 24 hr 02/27/25 02/28/25 02/28/25 22:07 01:34 01:45 WBC 8.1 D RBC 4.06 Hgb 10.6 L Hct 34.5 L MCV 85 MCH 26.1 MCHC 30.7 L RDW Std Deviation 53.5 H Plt Count 282 Neut % (Auto) 80 Lymph % (Auto) 9 L Adams % (Auto) 8 Eos % (Auto) 2 Baso % (Auto) 0 Neut # (Auto) 6.5 Lymph # (Auto) 0.7 L Adams # (Auto) 0.7 Eos # (Auto) 0.2 Baso # (Auto) 0.0 Immature Gran # (Auto) 0.05 H Absolute Nucleated RBC 0.00 Immature Gran % 1 H Nucleated RBC % 0 PT 11.8 INR 1.1 APTT 26.5 VBG pH 7.46 VBG pCO2 41 VBG pO2 70 H VBG O2 Sat ([place]) 95 L VBG Base Excess 5 H Sodium 137 Potassium 4.6 Chloride 101 Carbon Dioxide 29.9 Anion Gap 6 L BUN 16 Creatinine 0.9 Estim Creat Clear Calc 75.9 eGFR > 60 BUN/Creatinine Ratio 18 Glucose 100 Calculated Osmolality 275 Lactic Acid 2.1 H 0.6 Calcium 8.8 Corrected Calcium 8.8 Phosphorus 2.7 Magnesium 1.8 Total Bilirubin 1.1 Direct Bilirubin AST 41 H ALT 82 H Alkaline Phosphatase 221 H Lactate Dehydrogenase 227 Troponin I 0.021 B-Natriuretic Peptide 395 H Total Protein 7.2 Albumin 4.2 Globulin 3.0 Albumin/Globulin Ratio 1.4 Triglycerides Cholesterol LDL Cholesterol, Calc HDL Cholesterol Cholesterol/HDL Ratio Lipase 41 Procalcitonin 0.14 TSH Ur Collection Type Clean Catch Urine Color Lt-Yellow Urine Clarity Clear Urine pH 7.5 H Ur Specific [place] 1.015 Urine Protein Negative Urine Glucose (UA) Negative Urine Ketones Negative Urine Blood Negative Urine Nitrite Negative Urine Bilirubin Negative Urine Urobilinogen (Auto) Negative Ur Leukocyte Esterase Positive Urine RBC 2 Urine WBC 26 H Ur Squamous Epith Cells 1 Urine Bacteria None 02/28/25 05:04 WBC 6.3 RBC 3.66 L Hgb 9.5 L Hct 30.7 L MCV 84 MCH 26.0 MCHC 30.9 L RDW Std Deviation 52.4 H Plt Count 225 D Neut % (Auto) 71 Lymph % (Auto) 16 [place] % (Auto) 11 Eos % (Auto) 2 Baso % (Auto) 1 Neut # (Auto) 4.4 Lymph # (Auto) 1.0 Adams # (Auto) 0.7 Eos # (Auto) 0.1 Baso # (Auto) 0.0 Immature Gran # (Auto) 0.04 H Absolute Nucleated RBC 0.00 Immature Gran % 1 H Nucleated RBC % 0 PT 11.9 INR 1.1 APTT VBG pH VBG pCO2 VBG pO2 VBG O2 Sat ([place]) VBG Base Excess Sodium 139 Potassium 4.1 D Chloride 102 Carbon Dioxide 29.7 Anion Gap 7 BUN 15 Creatinine 1.0 Estim Creat Clear Calc 68.8 eGFR > 60 BUN/Creatinine Ratio 15 Glucose 109 H Calculated Osmolality 279 Lactic Acid Calcium 8.4 Corrected Calcium Phosphorus 3.8 Magnesium 2.3 Total Bilirubin 1.1 Direct Bilirubin 0.5 H AST 31 ALT 66 H Alkaline Phosphatase 189 H D Lactate Dehydrogenase Troponin I B-Natriuretic Peptide Total Protein 6.4 Albumin 3.7 D Globulin Albumin/Globulin Ratio Triglycerides 66 Cholesterol 91 L LDL Cholesterol, Calc 50 HDL Cholesterol 28 L Cholesterol/HDL Ratio 3.3 L Lipase Procalcitonin TSH 2.86 Ur Collection Type Urine Color Urine Clarity Urine pH Ur Specific [place] Urine Protein Urine Glucose (UA) Urine Ketones Urine Blood Urine Nitrite Urine Bilirubin Urine Urobilinogen (Auto) Ur Leukocyte Esterase Urine RBC Urine WBC Ur Squamous Epith Cells Urine Bacteria ABG Interpretation ABG results: 02/28/25 01:34 VBG pH 7.46 VBG pCO2 41 VBG pO2 70 H VBG Base Excess 5 H Quality Measures Quality Measures none Advance care planning discussed with:: patient Assessment & Plan Assessment Current Active Medications: Generic Name Dose Route Start Last Admin Trade Name Freq PRN Reason Stop Dose Admin Acetaminophen 650 mg 02/28/25 02:06 Acetaminophen 325 Mg Tablet PO 03/30/25 02:05 Q6H PRN PAIN OR FEVER > 101 Albuterol/Ipratropium 3 ml 02/28/25 02:10 Albuterol/Ipratropium (Duoneb) Rt Fatmata 3 Ml Nebu INH 03/30/25 06:59 Q8HRRT PRN wheezing Aspirin 81 mg 02/28/25 09:00 02/28/25 08:19 Aspirin Ec 81 Mg Tabec PO 03/30/25 08:59 81 mg QDAY LAMINE Administration Atorvastatin Calcium 20 mg 02/28/25 21:00 Atorvastatin Calcium 20 Mg Tablet PO 03/30/25 20:59 HS LAMINE Azithromycin 500 mg 02/28/25 20:00 Azithromycin 250 Mg Tablet PO 03/07/25 19:59 QDAY@2100 LAMINE Clopidogrel Bisulfate 75 mg 02/28/25 09:00 02/28/25 08:19 Clopidogrel Bisulfate 75 Mg Tablet PO 03/30/25 08:59 75 mg QDAY LAMINE Administration Fluoxetine HCl 40 mg 02/28/25 09:00 02/28/25 08:19 Fluoxetine Hcl 10 Mg Capsule PO 03/30/25 08:59 40 mg QDAY LAMINE Administration Furosemide 40 mg 02/28/25 06:00 02/28/25 05:47 Furosemide Inj 10 Mg/Ml 4ml Vial IVP 03/30/25 05:59 40 mg BIDD LAMINE Administration Gabapentin 300 mg 02/28/25 09:00 02/28/25 08:19 Gabapentin 300 Mg Capsule PO 03/30/25 08:59 300 mg BID LAMINE Administration Heparin Sodium (Porcine) 5,000 unit 02/28/25 09:00 02/28/25 08:19 Heparin Sod Inj 5000 Unit/Ml Vial SC 03/14/25 08:59 5,000 unit Q12HR LAMINE Administration Ceftriaxone Sodium/Dextrose 1 gm in 50 mls @ 100 mls/hr 02/28/25 20:00 Rocephin/D5w 1gm Iv Premix IV 03/07/25 19:59 QDAY@2100 LAMINE Ondansetron HCl 4 mg 02/28/25 02:06 Ondansetron Inj 2 Mg/Ml Inj 2 Ml IV 03/30/25 02:05 Q6H PRN NAUSEA OR VOMITING Protocol Sennosides 2 tab 02/28/25 02:06 Senna Tablet PO 03/30/25 02:05 BID PRN CONSTIPATION Protocol Plan Patient is a 69-year-old female with a past medical history of coronary artery disease status post PCI, HFpEF, hypertension, COPD on 2 L o2 at night, multiple joint surgeries and chronic pain who presented to emergency department due to fever and shortness of breath. Patient stated she was in usual state of health, discharged from hospital few days ago, now complaining of sudden onset fever starting late afternoon. Patient admitted for treatment and management of UTI. UTI Fever Last night patient had 1 episode of fever 101.3F and dysuria. Urinalysis significant for leukocyte esterase positive and 26 WBCs Blood and urine cultures pending Plan: ? Continue ceftriaxone 1 g IV daily started on [02/27? ? Awaiting blood and urine cultures Multivessel coronary artery disease s/p PCI x 4 Chronic diastolic heart failure [EF 55-60%] Paroxysmal nocturnal dyspnea Patient presented with 1 night history of PND and orthopnea. She awoke from sleep shortness of breath. She was sleeping on 2 pillows but they are very thin. Plan: ? 2G sodium restricted diet ? Daily weight ? Strict input output charting ? 1500 cc/day fluid restriction ? Lasix 40 Mg IV twice daily ? Patient will need to start beta-monster, MRA and SGLT2 as part of GDMT as outpatient. Chronic respiratory failure with hypoxia on 2L home O2 Possible COPD Patient never had formal lung function test but was prescribed to Tropium inhaler as home medication. Plan: ? Recommend to follow-up with PCP for referral for PFTs and pulmonology referral. Primary hypertension Currently BP 140/59 Home medication clonidine 0.1 Mg p.o. twice daily, furosemide 40 Mg p.o. twice daily and losartan 50 Mg p.o. daily. Plan: ? Elevated alkaline phosphatase History of hepatitis C?treated Alk phos 189 on admission. Hepatitis C antibody positive. HCVRNA quant not detected. Plan: ? Periodically monitor liver enzyme Chronic normocytic anemia Iron deficiency anemia Iron 15, TIBC 328, iron saturation 4, iron sat iron binding 313, ferritin 153 Plan: ? Recommend patient get outpatient colonoscopy, mammography and age-appropriate screening to rule out any malignancy. ? Recommend to start on oral iron upon discharge Osteoarthritis of bilateral knees Degenerative disc disorder Major depressive disorder Home medication [place] and gabapentin Plan: ? Continue home dose fluoxetine ? Hydrocodone as needed for pain Health maintenance: Disposition: Pending urine and blood cultures. Diet: Cardiac. 1500 cc fluid restriction Lines: pIVs GI Prophylaxis: None Thrombo Prophylaxis: Heparin Code status: FULL CODE Plan of care discussed with Attending Dr. Carlos Lion MD PGY 1 Disclaimer: This note was dictated by speech recognition. Minor errors in family medicine resident may be present due to voice recognition software. Attending Provider Attestation/Addendum I attest that I was physically present for the evaluation, physical examination, lab and imaging review of the patient with the residents. I discussed the case with the residents and agree with the findings and plans of care as documented above. Sarah Gonzalez MD
--- NOTE | 2025-02-28 11:47 | PC.PT ---
PT eval only. Patient is xI. Patient is safe to ambulate in the [place] and to the bathroom with no DME or staff assist. RN made aware.
[2025-02-28] MEDS: cefTRIAXone/D5w 1gm IV premix 1 GM/50 ML BAG IV (20:26)
[2025-02-28] MEDS: ATORVASTATIN CALCIUM 20 MG TABLET PO (20:39)
--- NOTE | 2025-02-28 21:01 | PC.NURSE ---
BP 178/[address] Roa was made aware. to review patient's chart and said she'll put an order in.
[2025-02-28] MEDS: cloNIDine HCL 0.1 MG TABLET PO (21:16)
[2025-02-28] MEDS: ACETAMINOPHEN 325 MG TABLET 650 MG PO (22:45)
[2025-03-01] VITALS (10 sets, daily range): BP systolic 140–170; BP diastolic 62–86; PULSE 63–93; RESP 16–94; TEMP 36.7–36.9; O2SAT 92–95; BMI 39.4
[2025-03-01] MEDS: FUROSEMIDE INJ 10 MG/ML 4ML VIAL 40 MG IVP (05:29)
[2025-03-01 05:51] LABS: Basophils % (Auto) 0 % (0-2.5); Eosinophils # (Auto) 0.3 Thou/mm3 (0.0-0.5); Eosinophils % (Auto) 5 % (0-10); Hematocrit 31.2 % (36.0-46.0); Hemoglobin 9.7 g/dL (12.0-16.0); Immature Granulocytes % (Auto) 1 % (0-0); Immature Granulocytes Auto 0.03 Thou/mm3 (0.00-0.00); Lymphocytes # (Auto) 0.8 Thou/mm3 (1.0-4.8); Lymphocytes % (Auto) 15 % (10-50); Mean Corpuscular HGB Conc 31.1 g/dl (31.0-37.0); Mean Corpuscular Hemoglobin 25.5 pg (25.0-35.0); Mean Corpuscular Volume 82 fL (80-100); Monocytes # (Auto) 0.7 Thou/mm3 (0.0-0.8); Monocytes % (Auto) 13 % (0-12); Neutrophils # (Auto) 3.6 Thou/mm3 (1.8-7.7); Neutrophils % (Auto) 67 % (37-80); Nucleated Red Blood Cell % 0 /100 WBC (0); Platelet Count 241 Thou/mm3 (140-440); RDW Standard Deviation 50.8 fL (36.4-46.3); Red Blood Count 3.81 Miln/mm3 (4.00-5.20); White Blood Count 5.4 Thou/mm3 (3.6-11.0)
[2025-03-01 06:22] LABS: Anion Gap 7 (7-16); BUN/Creatinine Ratio 16 Ratio (12-20); Blood Urea Nitrogen 16 mg/dL (9-23); Calcium 8.7 mg/dL (8.3-10.6); Carbon Dioxide 30.8 mMol/L (20.0-31.0); Chloride 100 mMol/L (98-107); Estimated Creatinine Clearance 68.8 mL/min (>60); Glucose 110 mg/dL (74-106); Osmolality,Calculated 277 (275-295); Potassium 3.5 mMol/L (3.4-5.1); Sodium 138 mMol/L (136-145); eGFR > 60 See Note
[2025-03-01] MEDS: POTASSIUM CHL 10 mEq IVPB 10 MEQ/100 ML BAG 50 MEQ IV (09:14)
[2025-03-01] MEDS: POTASSIUM CHLORIDE 10% 20 MEQ/15 ML UDC 40 MEQ PO (09:14)
[2025-03-01] MEDS: ASPIRIN EC 81 MG TABEC PO (09:15)
[2025-03-01] MEDS: HEPARIN SOD INJ 5000 UNIT/ML VIAL SC (09:15)
[2025-03-01] MEDS: cloNIDine HCL 0.1 MG TABLET PO (09:16)
[2025-03-01] MEDS: CLOPIDOGREL BISULFATE 75 MG TABLET PO (09:16)
[2025-03-01] MEDS: LOSARTAN POTASSIUM 25 MG TABLET 50 MG PO (09:17)
[2025-03-01] MEDS: GABAPENTIN 300 MG CAPSULE PO (09:18)
[2025-03-01] MEDS: FLUoxetine HCL 10 MG CAPSULE 40 MG PO (09:18)
[2025-03-01 09:27] LABS: Magnesium 2.1 mg/dL (1.6-2.6)
[2025-03-01] MEDS: POTASSIUM CHLORIDE 10% 20 MEQ/15 ML UDC PO (11:15)
--- NOTE | 2025-03-01 13:05 | PC.NURSE ---
Patient refused potassium IV, Dr. Lion made aware.
--- NOTE | 2025-03-01 16:31 | ESDS_ITS ---
<Statement entered by Oc Finley MD - 03/02/25 16:46> Patient was seen and examined at bedside. Agree on the assessment and plan for discharging this patient. - Patient's plan and care discussed with my attending, Dr. Bria Finley MD Internal Medicine PGY-2 Planned Discharge Date 03/01/25 DS: Providers Provider Date of admission: 02/28/25 02:06 Primary care physician: Vladimir Garvin MD Admitting Provider: Ron Amaro MD Attending Provider on Admission: Ron Amaro MD Consults: 02/28/25 05:32 Referral Physical Therapy Routine Comment: Physician Instructions: Referral Respiratory Therapy Routine Comment: Attending Provider on DC: Sarah Gonzalez MD Discharging Provider: Williams Lion MD DS: Diagnosis Problem List Completed Was Problem List Reviewed/Reconciled?: Yes Hospital Course Hospital Course Hospital course: Patient is a 69-year-old female with a past medical history of coronary artery disease status post PCI, HFpEF, hypertension, COPD on 2 L o2 at night, multiple joint surgeries and chronic pain who presented to emergency department due to fever and shortness of breath. Patient stated she was in usual state of health, discharged from hospital few days ago, now complaining of sudden onset fever starting late afternoon. Patient admitted for treatment and management of UTI. With regards to her UTI, she was treated with ceftriaxone 1 g IV daily from 02/27 to 03/01. Her symptoms of dysuria resolved and she had no further temperature spikes during admission. Blood and urine cultures were no bacterial growth x 1 day preliminary. Patient is now clinically stable and fit for discharge to home. Discharge diagnoses: 1. Uncomplicated UTI?resolving 2. Multivessel coronary artery disease s/p PCI x 4 3. Chronic diastolic heart failure [EF 55 to 60%] 4. Chronic respiratory failure with hypoxia on 2L home O2 5. Possible COPD 6. Primary hypertension 7. Elevated alkaline phosphatase?resolving 8. History of hepatitis C?treated 9. Chronic normocytic anemia 10. Iron deficiency anemia 11. Osteoarthritis of bilateral knees 12. Degenerative disc disorder 13. Major depressive disorder Discharge plan: - We have started you on an antibiotic for your urine infection. Take 1 tablet twice a day for the next 3 days to finish the course. - We have changed the dose of your Potassium tablet. Please take the new dose as directed below. - We have started you on a new inhaler for your COPD. Take 1 puff once a day - Follow up with your primary doctor to refer you for lung function tests. - Follow up with your primary doctor for a repeat urine test for the blood in your urine. - You have anemia. Follow up with your PCP for screening colonoscopy and further anemia workup. - Follow up with your PCP for results of your Hepatitic C titres. ? Continue taking the rest of your home medications as before - Sleep elevated to avoid shortness of breath at night ? You will have to restrict your daily liquid intake to 1.5 Litres / 50 ounces per day. This includes water, teas, coffees and soups. ? You will have to follow a low salt diet for the rest of your life. This means no Pashto food or fast food. ? You will have to take your weight daily. If your weight increases by more than 2-3 pounds in 1-2 days, take an extra water pill that day. ? You will have to measure your blood pressure daily. If the top number is less than 100, do not take your blood pressure medications that day. ? Keep a log of your blood pressures to take to your primary doctor and civil engineering intern. - You will need to follow up with your [employer] Sh[employer] Assistant for an angiogram as outpatient. - Follow up with your civil engineering intern or civil engineering intern, Dr. Orlando Lopez outpatient. His office number is [phone]. Please see a civil engineering intern within 1-2 weeks of discharge - Follow up with your primary care physician within 1 week of discharge. If you do not have a primary care physician or cannot get an appointment in time, please follow up with the [facility] Residents clinic ([phone]) ? If you experience any new, worsening or persistent symptoms either call your primary doctor, or dial 911 or present to the emergency department. We are grateful to be able to participate in Ms. Enciso' care. We wish her the best. Plan of care discussed with Attending Dr. Gonzalez and PGY 2 Dr. Tushar Lion MD PGY 1 Disclaimer: This note was dictated by speech recognition. Minor errors in linoleum floor layer may be present due to voice recognition software. Time Spent with Patient Time attestation: Total time spent providing and/or coordinating discharge services: Time spent: Less than 30 minutes Exam Vital Signs Temp Pulse Resp BP Pulse Ox O2 Del Method O2 Flow Rate 98.1 F 67 18 140/62 H 92 L Room Air 2 03/01/25 08:00 03/01/25 09:17 03/01/25 08:00 03/01/25 09:17 03/01/25 08:00 03/01/25 08:00 03/01/25 00:00 Narrative Exam Constitutional Alert, oriented x 3 and comfortable, saturating 95 % on room air HEENT Vision grossly intact. Patent nares. Trachea midline Respiratory Chest normal on inspection, lungs clear to auscultation bilaterally Cardiovascular S1 and S2 audible, RRR. Systolic Murmur left sternal border grade 3/6, No gross JVD. Abdominal Obese, soft and mildly tender to palpation in lower quadrants, BS + Genitourinary No bladder tenderness, no flank pain. Normal to palpation Musculoskeletal Extremities tone within normal limits. Pedal edema 2+ Neurological CN II - XII grossly intact. Extremity motor and sensation grossly intact. Skin Warm, dry and intact. No apparent lesions. Psychiatric Patient has good affect, is cooperative Discharge Plan Plan Patient Disposition: HOME (Self Care) Care Plan Goals: - We have started you on an antibiotic for your urine infection. Take 1 tablet twice a day for the next 3 days to finish the course. - We have changed the dose of your Potassium tablet. Please take the new dose as directed below. - We have started you on a new inhaler for your COPD. Take 1 puff once a day - Follow up with your primary doctor to refer you for lung function tests. - Follow up with your primary doctor for a repeat urine test for the blood in your urine. - You have anemia. Follow up with your PCP for screening colonoscopy and further anemia workup. - Follow up with your PCP for results of your Hepatitic C titres. ? Continue taking the rest of your home medications as before - Sleep elevated to avoid shortness of breath at night ? You will have to restrict your daily liquid intake to 1.5 Litres / 50 ounces per day. This includes water, teas, coffees and soups. ? You will have to follow a low salt diet for the rest of your life. This means no Pashto food or fast food. ? You will have to take your weight daily. If your weight increases by more than 2-3 pounds in 1-2 days, take an extra water pill that day. ? You will have to measure your blood pressure daily. If the top number is less than 100, do not take your blood pressure medications that day. ? Keep a log of your blood pressures to take to your primary doctor and civil engineering intern. - You will need to follow up with your [employer] Sh[employer] Assistant for an angiogram as outpatient. - Follow up with your civil engineering intern or civil engineering intern, Dr. Orlando Lopez outpatient. His office number is [phone]. Please see a civil engineering intern within 1-2 weeks of discharge - Follow up with your primary care physician within 1 week of discharge. If you do not have a primary care physician or cannot get an appointment in time, please follow up with the [facility] Residents clinic ([phone]) ? If you experience any new, worsening or persistent symptoms either call your primary doctor, or dial 911 or present to the emergency department. Prescriptions/Referrals Prescriptions/Med Rec: New amoxicillin-pot clavulanate 500-125 mg tablet 1 tab PO BID 3 Days Qty: 6 0RF potassium chloride 10 mEq capsule, extended release 10 meq PO QDAY 7 Days Qty: 7 0RF gtysukepyfm-gbhxntydp-jhzhxwiy 200-62.5-25 mcg blister with device 1 inh inhalation Q24H 30 Days Qty: 28 0RF ferrous sulfate 220 mg (44 mg iron)/5 mL elixir 220 mg PO Q OTHER DAY 30 Days Qty: 473 0RF Continued aspirin 81 mg capsule 81 mg PO QDAY Qty: 30 0RF clonidine HCl 0.1 mg tablet 0.1 mg PO BID fluoxetine 40 mg capsule 40 mg PO BID gabapentin 300 mg capsule 300 mg PO BID cholecalciferol (vitamin D3) 125 mcg (5,000 unit) capsule 125 mcg PO DAILY Patient Comments: TAKE 1 CAPSULE BY MOUTH EVERY DAY hydrocodone-acetaminophen 10-325 mg tablet 1 tab PO Q4HR PRN (Reason: Pain) Patient Comments: TAKE 1 TABLET BY MOUTH EVERY 4 HOURS FOR 7 DAYS clopidogrel 75 mg tablet 75 mg PO 1XD guaifenesin 100 mg/5 mL Liquid 200 mg PO QID PRN (Reason: Cough Or Congestion) Qty: 473 0RF pantoprazole 40 mg Tablet,Delayed Release (Dr/Ec) 40 mg PO QDAY 30 Days Qty: 30 2RF lidocaine 5 % Adhesive Patch,Medicated 1 patch top UD PRN (Reason: Back Pain) Qty: 15 0RF losartan 50 mg tablet 50 mg PO QDAY 30 Days Qty: 30 3RF atorvastatin 20 mg tablet 20 mg PO QDAY 30 Days Qty: 30 3RF albuterol sulfate [Ventolin HFA] 90 mcg/actuation HFA aerosol inhaler 1 inh inhalation QID PRN (Reason: shortness of breath or wheezing) 30 Days Qty: 6.7 2RF furosemide 40 mg tablet 40 mg PO BID Patient Comments: TAKE 1 TABLET BY MOUTH EVERY DAY sucralfate 100 mg/mL suspension 10 ml PO QID PRN (Reason: pain ) Patient Comments: TAKE 10 ML 4 TIMES A DAY BY ORAL ROUTE FOR 11 DAYS Discontinued tiotropium-olodaterol 2.5-2.5 mcg/actuation mist 2 puff inhalation QDAY 30 Days Qty: 4 0RF potassium chloride 20 mEq tablet extended release 20 meq PO BID Referrals: Vladimir Garvin MD [Primary Care Provider] - Manjit Lopez MD [Physician] - Patient/Caregiver Discharge Instructions Print Language: Khmer Stand Alone Forms: Sherita Award Info., Patient Portal Info Letter, Work/Release Restrictions Discharge Order Discharge Orders: Discharge (Routine); Ordered 03/01/25 Ordered By: Williams Lion Quality Discharge Quality Measures VTE prophylaxis Attestestation Attestation I attest that I was physically present for the evaluation, physical examination, lab and imaging review of the patient with the residents. I discussed the case with the residents and agree with the findings and plans of care as documented above. Sarah Gonzalez MD
== END 2025-03-01 11:31 | disposition home or self-care (01) ==
LOC: SERX 02-28 01:46 → SERHOLD 02-28 02:40 → S3SX 02-28 05:23
PROVIDERS: Registered Nurse General Practice; Student in an Organized Health Care Education/Training Program; Admitting Provider Internal Medicine; Emergency Provider Emergency Medicine; PCP Family Medicine; Visit Provider Internal Medicine
DX: N39.0 Urinary tract infection, site not specified (principal); D50.9 Iron deficiency anemia, unspecified; I25.10 Atherosclerotic heart disease of native coronary artery without angina pectoris; I11.0 Hypertensive heart disease with heart failure; I50.32 Chronic diastolic (congestive) heart failure; J96.11 Chronic respiratory failure with hypoxia; J44.9 Chronic obstructive pulmonary disease, unspecified; R74.8 Abnormal levels of other serum enzymes; B18.2 Chronic viral hepatitis C; M17.0 Bilateral primary osteoarthritis of knee; F32.9 Major depressive disorder, single episode, unspecified; Z01.810 Encounter for preprocedural cardiovascular examination
CPT/HCPCS: 36415; 71045; 80048; 80053; 80061; 80076; 81001; 82803; 83605; 83615; 83690; 83735; 83880; 84100; 84145; 84443; 84484; 85025; 85610; 85730; 87040; 87081; 87086; 87400; 87502; 87811; 93005; 96365; 96366; 96372; 97161; 99285; G0378; J0131; J0456; J0696; J1644; J1938; J3475; J3480; J7050; A9270

== ENCOUNTER → 2025-03-02 | Outpatient (CLI) | payer MEDICARE, SELFPAY ==
--- NOTE | 2025-03-02 | XR_ITS ---
Examination: Abdomen AP single view Technique: AP portable supine abdomen, single view Exam date and time: March 02, 2025 1153 hours INDICATIONS: Abdominal pain beginning 2 months ago. FINDINGS: Moderate stool throughout the colon No obstruction No free air IMPRESSION: Moderate stool throughout the colon
[2025-03-02 11:49] LABS: Collection Type, Urine Clean Catch; RBC,Urine 0 /hpf (0-3)
[2025-03-02 12:07] LABS: Basophils % (Auto) 1 % (0-2.5); Eosinophils # (Auto) 0.2 Thou/mm3 (0.0-0.5); Eosinophils % (Auto) 4 % (0-10); Hemoglobin 9.6 g/dL (12.0-16.0); Immature Granulocytes % (Auto) 1 % (0-0); Immature Granulocytes Auto 0.04 Thou/mm3 (0.00-0.00); Lymphocytes # (Auto) 0.8 Thou/mm3 (1.0-4.8); Lymphocytes % (Auto) 17 % (10-50); Mean Corpuscular Hemoglobin 25.5 pg (25.0-35.0); Mean Corpuscular Volume 82 fL (80-100); Monocytes # (Auto) 0.6 Thou/mm3 (0.0-0.8); Monocytes % (Auto) 13 % (0-12); Neutrophils # (Auto) 3.1 Thou/mm3 (1.8-7.7); Neutrophils % (Auto) 64 % (37-80); Nucleated Red Blood Cell % 0 /100 WBC (0); Platelet Count 296 Thou/mm3 (140-440); RDW Standard Deviation 51.6 fL (36.4-46.3); Red Blood Count 3.76 Miln/mm3 (4.00-5.20); White Blood Count 4.8 Thou/mm3 (3.6-11.0)
[2025-03-02 12:14] LABS: Bilirubin,Urine Negative (Negative); Blood,Urine Negative (Negative); Clarity,Urine Clear (Clear/Hazy); Color,Urine Lt-Yellow (Lt Yel-Yel); Glucose, Urine Negative (Negative); Ketones,Urine Negative (Negative); Leukocyte Esterase,Urine Negative (Negative); Nitrite,Urine Negative (Negative); PH,Urine 7.5 (5.0-7.0); Protein,Urine Negative (Neg - Trace); Specific Gravity,Urine 1.012 (1.001-1.035); Squamous Epithelial Cell,Urine 3 /hpf (0-5); Urobilinogen,Urine Negative mg/dL (0.0-1.0); WBC,Urine 1 /hpf (0-5)
[2025-03-02 12:27] LABS: B-Type Natriuretic Peptide 275 pg/mL (0-100)
[2025-03-02 13:46] LABS: Ferritin 73 ng/mL (7.3-270.7); Iron 43 mcg/dL (50-170); Percent Iron Saturation 12 % (20-55); Total Iron Binding Capacity 342 mcg/dL (250-425); Unsaturated Iron Binding 299 (225-295)
[2025-03-02 15:39] LABS: Alanine Aminotransferase 40 U/L (10-49); Albumin, Serum 4.1 gm/dL (3.4-4.8); Albumin/Globulin Ratio 1.5 (1.2-2.2); Alkaline Phosphatase 175 U/L (46-116); Anion Gap 6 (7-16); Aspartate Amino Transferase 24 U/L (0-34); BUN/Creatinine Ratio 18 Ratio (12-20); Bilirubin,Total 0.8 mg/dL (0.3-1.2); Blood Urea Nitrogen 16 mg/dL (9-23); Calcium 9.2 mg/dL (8.3-10.6); Calcium (Corrected) 9.2 mg/dL (8.5-10.1); Carbon Dioxide 30.6 mMol/L (20.0-31.0); Chloride 101 mMol/L (98-107); Creatinine (Component) 0.9 mg/dL (0.6-1.3); Globulin 2.8 gm/dL (2.3-3.5); Glucose 111 mg/dL (74-106); Lipase 44 U/L (12-53); Osmolality,Calculated 277 (275-295); Potassium 4.2 mMol/L (3.4-5.1); Sodium 138 mMol/L (136-145); Total Protein 6.9 gm/dL (5.7-8.2); eGFR > 60 See Note
[2025-03-02 15:54] LABS: Amylase 32 U/L (30-118)
[2025-03-08 06:32] LABS: Gamma Glutamyl Transpeptidase* 64 U/L (3-65)
== END | disposition home or self-care (01) ==
LOC: CDIM 11:22 → COPL 11:28
PROVIDERS: PCP Family Medicine; Referring Provider Specialist; Visit Provider Radiology Diagnostic Radiology
DX: K59.00 Constipation, unspecified (principal); R31.29 Other microscopic hematuria; D50.8 Other iron deficiency anemias; R06.02 Shortness of breath; R74.01 Elevation of levels of liver transaminase levels; R74.8 Abnormal levels of other serum enzymes
CPT/HCPCS: 36415; 74018; 80053; 81001; 82150; 82728; 82977; 83540; 83550; 83690; 83880; 85025; 87086

== ENCOUNTER → 2025-03-29 | Outpatient (CLI) | payer MEDICARE, SELFPAY ==
--- NOTE | 2025-03-29 15:00 | XR_ITS ---
Examination: Pelvic ultrasound, transabdominal, complete Technique: Transabdominal ultrasound of the pelvis performed using grayscale imaging Date and time of exam: March 29, 2025 1446 hours INDICATIONS: Vaginal bleeding and pelvic pain beginning 3 months ago FINDINGS: No uterus or ovaries identified No free fluid in the pelvis IMPRESSION: No free fluid in the pelvis No pelvic mass
== END | disposition home or self-care (01) ==
PROVIDERS: PCP Specialist; Referring Provider Specialist; Visit Provider Specialist
DX: N92.0 Excessive and frequent menstruation with regular cycle (principal)
CPT/HCPCS: 76856

== ENCOUNTER 2025-04-05 06:33 | Day surgery (SDC) | payer MEDICARE, SELFPAY ==
--- NOTE | 2025-04-04 07:00 | EKG_ITS ---
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
[2025-04-04 12:47] LABS: Basophils % (Auto) 1 % (0-2.5); Eosinophils # (Auto) 0.2 Thou/mm3 (0.0-0.5); Eosinophils % (Auto) 4 % (0-10); Hematocrit 31.3 % (36.0-46.0); Hemoglobin 10.3 g/dL (12.0-16.0); Immature Granulocytes % (Auto) 0 % (0-0); Immature Granulocytes Auto 0.02 Thou/mm3 (0.00-0.00); Lymphocytes # (Auto) 1.1 Thou/mm3 (1.0-4.8); Lymphocytes % (Auto) 20 % (10-50); Mean Corpuscular HGB Conc 32.9 g/dl (31.0-37.0); Mean Corpuscular Hemoglobin 27.8 pg (25.0-35.0); Mean Corpuscular Volume 84 fL (80-100); Monocytes # (Auto) 0.5 Thou/mm3 (0.0-0.8); Monocytes % (Auto) 9 % (0-12); Neutrophils # (Auto) 3.8 Thou/mm3 (1.8-7.7); Neutrophils % (Auto) 67 % (37-80); Nucleated Red Blood Cell % 0 /100 WBC (0); Platelet Count 242 Thou/mm3 (140-440); RDW Standard Deviation 57.9 fL (36.4-46.3); Red Blood Count 3.71 Miln/mm3 (4.00-5.20); White Blood Count 5.7 Thou/mm3 (3.6-11.0)
[2025-04-04 13:00] LABS: Anion Gap 10 (7-16); BUN/Creatinine Ratio 26 Ratio (12-20); Blood Urea Nitrogen 26 mg/dL (9-23); Calcium 9.4 mg/dL (8.3-10.6); Carbon Dioxide 30.9 mMol/L (20.0-31.0); Chloride 103 mMol/L (98-107); Glucose 88 mg/dL (74-106); Osmolality,Calculated 290 (275-295); Potassium 4.5 mMol/L (3.4-5.1); Sodium 144 mMol/L (136-145); eGFR > 60 See Note
[2025-04-04 13:03] LABS: Partial Thromboplastin Time 24.4 Seconds (22.0-36.0)
[2025-04-05] VITALS (14 sets, daily range): BP systolic 101–137; BP diastolic 44–83; PULSE 44–58; RESP 12–18; TEMP 36.2–36.5; O2SAT 96–100
--- NOTE | 2025-04-05 08:12 | PC.NURSE ---
0812 patient is awake, alert, breathing unlabored, s/p LHC by Dr. Lopez, TR band present to right wrist, no bleeding or hematoma noted, report received from Luke AGARWAL, patient to recover for 3 hours and 1hr post TR band removal.
--- NOTE | 2025-04-05 09:12 | ESOP_ITS ---
RE: EMERALD REY : 1955 DATE OF OPERATION: 04/05/2025 PROCEDURE PERFORMED: 1. Diagnostic left heart cardiac catheterization, selective coronary angiogram, left ventricular angiogram, CPT 13159. 2. Conscious sedation for 30-minute duration. 3. Ultrasound-guided access, right radial artery. DIAGNOSES: Coronary artery disease, angina pectoris, multivessel stent placement. HISTORY AND INDICATIONS: The patient is a 69-year-old lady with a history of hypertension, hypercholesterolemia, multiple stents placed in 2012 and subsequently 2023. She had stents placed again in . She has had recurrent episodes of shortness of breath on exertion and chest discomfort, class III angina pectoris. She did go to the emergency room in 02/2024 and 03/2024 and she had stents placed. The patient is having severe chest pain, shortness of breath and nuclear scan is abnormal. Hence, colonoscopy was recommended to assess if the patient is a candidate for intervention and revascularization. DESCRIPTION OF PROCEDURE: The patient was brought to the cardiac catheterization laboratory where she was given 2 mg of Versed and 50 mcg of fentanyl for sedation. Right radial approach was taken. Right radial artery was cannulated with a micropuncture technique. A 6-Czech Glidesheath was introduced. Selective right and left coronary angiogram was performed by TIG-4 diagnostic catheter. Left heart catheterization and LV angiogram was performed by TIG-4 diagnostic catheter. The patient tolerated the procedure well. No complications. Coronary angiogram showed following findings. FINDINGS: Right coronary artery is large and dominant showed evidence of stents in the proximal mid segment widely patent. There is evidence of mild plaque 40% stenosis distally. RV branch is 2 mm vessel, showed a 90% stenosis of the distal. PDA and PL branches are normal. Left coronary system: Left main coronary artery showed evidence of 80% distal left main coronary artery stenosis just before bifurcation. Evidence of multiple stents in the proximal and mid left anterior descending artery. All of them are patent. Circumflex artery gives off one large obtuse marginal branch, showed no significant stenosis. Left ventricular pressure is 130/10. Aortic pressure is 130/80. No gradient across the aortic valve. Left ventricular angiogram showed normal left ventricular wall motion. Ejection fraction 60%. SUMMARY OF FINDINGS AND SUGGESTIONS: 1. 80% stenosis of distal left main coronary artery. 2. Widely patent stents involving the left anterior descending artery and right coronary artery. 3. Severe stenosis of RV branch of the right coronary artery. 4. Normal left ventricular function. RECOMMENDATIONS: The patient will continue on medical management. Because of left main coronary artery disease, I will offer the patient to have coronary artery bypass surgery as a definitive treatment, but if she wishes not to have surgery, left main coronary stent placement can be performed, but possibly in a tertiary care center such as [facility]. DT: 08:28:22 TT: 08:59:00 Ref: [id number] - TID: [id number] MTDD
--- NOTE | 2025-04-05 11:18 | PC.NURSE ---
0910 1ml air of TR band since hemostasis 908 1015 TR band removed, no bleeding or hematoma noted, site covered with gauze and tegderm 1115 patient is awake, alert, breathing unlabored, dressing to right wrist dry with no bleeding or hematoma, patient able to tolerate food tray with no nausea or vomiting, able to ambulate to bathroom and void, meets discharge criteria, discharge instructions given to patient and dianne, patient discharged home in wheelchair with all belongings.
== END 2025-04-05 11:15 | disposition home or self-care (01) ==
PROVIDERS: PCP Family Medicine; Referring Provider Internal Medicine Cardiovascular Disease; Visit Provider Internal Medicine
PROC: (CPT 93458; principal; 2025-04-05 07:30)
DX: I25.119 Atherosclerotic heart disease of native coronary artery with unspecified angina pectoris (principal); Z95.5 Presence of coronary angioplasty implant and graft; I10 Essential (primary) hypertension; E78.00 Pure hypercholesterolemia, unspecified; Z01.810 Encounter for preprocedural cardiovascular examination
CPT/HCPCS: 93458; 36415; 80048; 85025; 85610; 85730; 93005; 99152; A4649; C1769; C1894; J0171; J0461; J1643; J2250; J2310; J2371; J3010; J3490; Q9967; J2305

== ENCOUNTER → 2025-06-23 | Outpatient (CLI) | payer MEDICARE, SELFPAY ==
[2025-06-23 10:40] LABS: Basophils # (Auto) 0.0 Thou/mm3 (0.0-0.2); Basophils % (Auto) 1 % (0-2.5); Eosinophils # (Auto) 0.4 Thou/mm3 (0.0-0.5); Eosinophils % (Auto) 7 % (0-10); Hematocrit 29.8 % (36.0-46.0); Hemoglobin 8.9 g/dL (12.0-16.0); Immature Granulocytes Auto 0.03 Thou/mm3 (0.00-0.00); Lymphocytes # (Auto) 0.9 Thou/mm3 (1.0-4.8); Lymphocytes % (Auto) 15 % (10-50); Mean Corpuscular HGB Conc 29.9 g/dl (31.0-37.0); Mean Corpuscular Hemoglobin 29.0 pg (25.0-35.0); Mean Corpuscular Volume 97 fL (80-100); Monocytes # (Auto) 0.5 Thou/mm3 (0.0-0.8); Monocytes % (Auto) 8 % (0-12); Neutrophils # (Auto) 4.3 Thou/mm3 (1.8-7.7); Neutrophils % (Auto) 70 % (37-80); Nucleated Red Blood Cell # 0.00 Thou/mm3 (0.00-0.00); Nucleated Red Blood Cell % 0 /100 WBC (0); Platelet Count 249 Thou/mm3 (140-440); RDW Standard Deviation 59.7 fL (36.4-46.3); Red Blood Count 3.07 Miln/mm3 (4.00-5.20); White Blood Count 6.1 Thou/mm3 (3.6-11.0)
[2025-06-23 10:48] LABS: B-Type Natriuretic Peptide 401 pg/mL (0-100)
[2025-06-23 10:58] LABS: Folate 10.66 ng/mL (>5.38); Vitamin B12 486 pg/mL (211-911)
[2025-06-23 11:00] LABS: Alanine Aminotransferase 15 U/L (10-49); Albumin, Serum 3.8 gm/dL (3.4-4.8); Albumin/Globulin Ratio 1.5 (1.2-2.2); Alkaline Phosphatase 166 U/L (46-116); Anion Gap 11 (7-16); Aspartate Amino Transferase 24 U/L (0-34); BUN/Creatinine Ratio 16 Ratio (12-20); Bilirubin,Total 0.9 mg/dL (0.3-1.2); Blood Urea Nitrogen 13 mg/dL (9-23); Calcium 10.0 mg/dL (8.3-10.6); Calcium (Corrected) 10.2 mg/dL (8.5-10.1); Carbon Dioxide 28.0 mMol/L (20.0-31.0); Cardiac Risk Estimate 2.5 RATIO (3.7-5.6); Chloride 103 mMol/L (98-107); Cholesterol 130 mg/dL (132-200); Creatinine (Component) 0.8 mg/dL (0.6-1.3); Free T4 (Free Thyroxine) 1.19 ng/dL (0.89-1.76); Globulin 2.5 gm/dL (2.3-3.5); Glucose 87 mg/dL (74-106); HDL Cholesterol 53 mg/dL (40-60); LDL Cholesterol,Calculated 58 mg/dL (0-130); Osmolality,Calculated 282 (275-295); Potassium 3.9 mMol/L (3.4-5.1); Sodium 142 mMol/L (136-145); Thyroid Stimulating Hormone 12.74 uIU/mL (0.55-4.78); Total Protein 6.3 gm/dL (5.7-8.2); Triglycerides 94 mg/dL (30-150); eGFR > 60 See Note
[2025-06-23 11:01] LABS: Ferritin 95 ng/mL (7.3-270.7); Iron 55 mcg/dL (50-170); Percent Iron Saturation 15 % (20-55); Total Iron Binding Capacity 360 mcg/dL (250-425); Unsaturated Iron Binding 305 (225-295)
== END | disposition home or self-care (01) ==
LOC: COPL 09:12
PROVIDERS: PCP Family Medicine; Referring Provider Nurse Practitioner; Visit Provider Nurse Practitioner
DX: R06.02 Shortness of breath (principal); E87.6 Hypokalemia; N30.00 Acute cystitis without hematuria; D64.9 Anemia, unspecified; E78.5 Hyperlipidemia, unspecified; R53.83 Other fatigue
CPT/HCPCS: 36415; 80053; 80061; 82607; 82728; 82746; 83540; 83550; 83880; 84439; 84443; 85025; 87077; 87086; 87186

== ENCOUNTER → 2025-07-18 | Outpatient (CLI) | payer MEDICARE, SELFPAY ==
--- NOTE | 2025-07-18 12:20 | XR_ITS ---
Examination: PA lateral chest 2 views TECHNIQUE: Upright PA lateral chest 2 views Date and time: July 18, 2025 1237 hours, comparison February 27, 2025 INDICATIONS: Status post open-heart surgery May 15, 2025 with shortness of breath FINDINGS: Mild prominence of ventricle Aortic and mitral valves Moderate vascular congestion. No lobar pneumonia or jayy pulmonary edema IMPRESSION: Mild enlargement cardiac contour Moderate vascular congestion
[2025-07-18 14:02] LABS: Basophils # (Auto) 0.1 Thou/mm3 (0.0-0.2); Basophils % (Auto) 1 % (0-2.5); Eosinophils # (Auto) 0.4 Thou/mm3 (0.0-0.5); Eosinophils % (Auto) 6 % (0-10); Hematocrit 30.9 % (36.0-46.0); Hemoglobin 9.3 g/dL (12.0-16.0); Immature Granulocytes Auto 0.03 Thou/mm3 (0.00-0.00); Lymphocytes # (Auto) 1.3 Thou/mm3 (1.0-4.8); Lymphocytes % (Auto) 18 % (10-50); Mean Corpuscular HGB Conc 30.1 g/dl (31.0-37.0); Mean Corpuscular Hemoglobin 27.9 pg (25.0-35.0); Mean Corpuscular Volume 93 fL (80-100); Monocytes # (Auto) 0.4 Thou/mm3 (0.0-0.8); Monocytes % (Auto) 6 % (0-12); Neutrophils # (Auto) 5.0 Thou/mm3 (1.8-7.7); Neutrophils % (Auto) 70 % (37-80); Nucleated Red Blood Cell # 0.00 Thou/mm3 (0.00-0.00); Nucleated Red Blood Cell % 0 /100 WBC (0); Platelet Count 400 Thou/mm3 (140-440); RDW Standard Deviation 56.8 fL (36.4-46.3); Red Blood Count 3.33 Miln/mm3 (4.00-5.20); White Blood Count 7.2 Thou/mm3 (3.6-11.0)
[2025-07-18 14:14] LABS: B-Type Natriuretic Peptide 103 pg/mL (0-100)
[2025-07-18 14:15] LABS: Anion Gap 8 (7-16); BUN/Creatinine Ratio 15 Ratio (12-20); Blood Urea Nitrogen 18 mg/dL (9-23); Calcium 10.2 mg/dL (8.3-10.6); Carbon Dioxide 27.6 mMol/L (20.0-31.0); Chloride 104 mMol/L (98-107); Creatinine (Component) 1.2 mg/dL (0.6-1.3); Free T3 2.8 pg/mL (2.3-4.2); Free T4 (Free Thyroxine) 1.02 ng/dL (0.89-1.76); Glucose 120 mg/dL (74-106); Osmolality,Calculated 282 (275-295); Potassium 4.5 mMol/L (3.4-5.1); Sodium 140 mMol/L (136-145); Thyroid Stimulating Hormone 7.00 uIU/mL (0.55-4.78); eGFR 50 See Note
== END | disposition home or self-care (01) ==
LOC: CDIM 12:06 → COPL 12:45
PROVIDERS: PCP Nurse Practitioner; Referring Provider Nurse Practitioner; Visit Provider Radiology Diagnostic Radiology
DX: I51.7 Cardiomegaly (principal); R09.89 Other specified symptoms and signs involving the circulatory and respiratory systems; E87.6 Hypokalemia; D63.8 Anemia in other chronic diseases classified elsewhere; E03.8 Other specified hypothyroidism; R06.02 Shortness of breath
CPT/HCPCS: 36415; 71046; 80048; 83880; 84439; 84443; 84481; 85025

== ENCOUNTER 2025-07-25 08:36 | Outpatient (AMB) | payer MEDICARE, SELFPAY ==
[2025-07-25 08:50] VITALS: BP 120/76; PULSE 100; RESP 16; TEMP 36.6; O2SAT 96; BMI 34.2
--- NOTE | 2025-07-25 08:50 | ORTHONT_ITS ---
Vital signs 07/25/25 08:50 Height 1.68 m Height Method Measured Weight 96.162 kg Weight Measurement Method Standing Scale BMI 34.2 BP 120/76 Blood Pressure Source Automatic Cuff Blood Pressure Location Left Upper Arm Position Sitting Respiration 16 Pulse 100 Pulse Source Monitor Temp 97.9 F Temp Source Temporal Artery Scan Pulse Oximetry (%) 96 Oxygen Delivery Method Room Air Med/Allergies Allergies & Medications Allergies hydralazine Allergy (Severe, Verified 07/25/25 08:51) Anxiety Sulfa (Sulfonamide Antibiotics) Allergy (Severe, Verified 07/25/25 08:51) Rash Medication Reconciliation aspirin 81 mg capsule 81 mg PO QDAY #30 caps 03/07/22 [Rx Confirmed 07/25/25] furosemide 40 mg tablet 40 mg PO DAILY 08/07/23 [History Confirmed 07/25/25] sucralfate 100 mg/mL oral suspension 10 ml PO QID PRN pain 08/07/23 [History Confirmed 07/25/25] cholecalciferol (vitamin D3) 125 mcg (5,000 unit) capsule 125 mcg PO DAILY 09/10/23 [History Confirmed 07/25/25] clonidine HCl 0.1 mg tablet 0.1 mg PO BID 09/10/23 [History Confirmed 07/25/25] fluoxetine 40 mg capsule 40 mg PO BID 09/10/23 [History Confirmed 07/25/25] gabapentin 300 mg capsule 300 mg PO .6h 09/10/23 [History Confirmed 07/25/25] hydrocodone 10 mg-acetaminophen 325 mg tablet 1 tab PO Q4HR PRN Pain 09/10/23 [History Confirmed 07/25/25] clopidogrel 75 mg tablet 75 mg PO 1XD 07/24/24 [History Confirmed 07/25/25] albuterol sulfate 90 mcg/actuation aerosol inhaler (Ventolin HFA) 1 inh inhalation QID PRN shortness of breath or wheezing 1 month #6.7 grams 02/24/25 [Rx Confirmed 07/25/25] atorvastatin 20 mg tablet 20 mg PO QDAY 1 month #30 tabs 02/24/25 [Rx Confirmed 07/25/25] lidocaine 5 % topical patch 1 patch top UD PRN Back Pain #15 ea 02/24/25 [Rx Confirmed 07/25/25] losartan 50 mg tablet 50 mg PO QDAY 1 month #30 tabs 02/24/25 [Rx Confirmed 07/25/25] docusate sodium 100 mg capsule 100 mg PO QDAY 04/05/25 [History Confirmed 07/25/25] ferrous sulfate 325 mg (65 mg iron) tablet (FeroSul) 325 mg PO QDAY 04/05/25 [H istory Confirmed 07/25/25] magnesium glycinate 100 mg (as glycinate) tablet 200 mg PO QDAY 04/05/25 [History Confirmed 07/25/25] nitroglycerin 0.4 mg sublingual tablet 0.4 mg buccal PRN PRN chest pain 04/05/25 [History Confirmed 07/25/25] ondansetron 4 mg disintegrating tablet 4 mg PO PRN PRN nausea and vomiting 04/05/25 [History Confirmed 07/25/25] pantoprazole 40 mg tablet,delayed release 40 mg PO BID 04/05/25 [History Confirmed 07/25/25] potassium chloride 20 mEq tablet,extended release 20 meq PO TID 04/05/25 [History Confirmed 07/25/25] Exam Exam Patient is in no acute distress and is cooperative with the examination today. Breathing is nonlabored. In no respiratory distress. Bilateral extremities were evaluated and demonstrates sensation intact to light touch. Palpable pedal pulses are present. No significant edema is present. Bilateral hips were examined. The patient has no pain with log roll of the hips. Internal rotation to 30 degrees and external rotation to 30 degrees is painless. Negative FADIR. Right knee is tender to palpation. The knee feels stable to varus valgus passively translation. Range of motion 0 to 100 degrees. Left knee was examined today. The right knee is in reasonable alignment. Range of motion from 0-120 degrees. Knee is stable to varus and valgus as well as AP translation with <5mm. Patient has a negative McMurrays. There is no pain with patellofemoral compression and no crepitus noted. The knee is tender to palpation medially X-rays of the bilateral knees were reviewed from 1 year ago. 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 This demonstrates loosening of the femoral component stem as it is abutting the lateral cortex and is there is remodeling. On the left knee there is severe arthritis on these nonweightbearing films Assessment and Plan Problem List (1) Bilateral knee pain: Status: Acute Plan: ASSESSMENT AND PLAN 1. Right knee aseptic loosening The right knee is loose and has undergone multiple surgeries, resulting in complications with wound healing. Given the complexity of the case and the likelihood of failure, a referral to Dr. Almeida, who specializes in revision surgeries, is advised for further evaluation and potential revision surgery. In addition, he also did this original surgery The importance of addressing the aseptic loosening and to prevent further complications was emphasized. No immediate intervention planned until consultation with Dr. Almeida. 2. Left knee arthritis: Significant pain is reported in the left knee. Previous x-rays were nonweightbearing and taken about a year ago. Weightbearing x-rays of both knees will be ordered to get a clearer assessment. An injection for the left knee will be administered today to help alleviate the pain. Weightbearing x-rays of both knees will be ordered to provide a more accurate assessment. An injection for the left knee will be administered today to help manage the pain. Discussed the benefits of the injection in providing relief and the potential for future interventions if necessary. Patient education on the procedure and expected outcomes was provided. Encouraged monitoring of symptoms and to report any adverse effects post-injection. Recommend knee cortisone injection as patient would like to proceed with conservative treatment at this time. The risks and benefits of the procedure were reviewed with the patient and patient gave verbal consent to continue with the procedure. Procedure: performed by Dr. Akers Using sterile technique the left knee was thoroughly prepped with alcohol, and approximately 1 cc of Depo-Medrol 80mg/mL and 4 cc of 0.2% ropivacaine was injected without resistance into the medial tibial femoral joint space. The patient tolerated the procedure. 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 MANAGER Level 3 (5168-5514) Surgical Proc/IM SQ injection Minor Surgical Procedure: Yes (KNEE INJECTION ) Medication Given Medication Given Medication Given: Yes Documented Dose Given: 1 Route: Infiitration Medication Given Medication Given Medication Given: Yes Documented Dose Given: 4 Route: Infiitration Office Meds methylprednisolone acetate 80 mg/mL suspension for injection Performing Provider: Dionicio Akers MD Performing Location: [facility] Administered by: Dionicio Akers MD on 07/25/25 09:25 Dose Route Admin Location Dispensed Lot Number Expiration Date Pack age [facility] [employer] 80 mg intra-articular KNEE 1 mL [id number] 03/25/27 [address]-3 [id number] [employer] ropivacaine (PF) 2 mg/mL (0.2 %) injection solution Performing Provider: Dionicio Akers MD Performing Location: [facility] Administered by: Dionicio Akers MD on 07/25/25 09:25 Dose Route Admin Location Dispensed Lot Number Expiration Date Pack age [facility] [employer] 20 mL Infiltration KNEE 20 mL [id number] 11/25/27 34349-075-71 [id number] [facility] Intake Visit Data Collection New Patient or Established: New Patient (never been to [facility]) Reason for Visit:: OSTEOARTHRITIS LEFT KNEE Seen by Clinical Staff ONLY (RN/MA): No [employer] D[employer] Car Stewardess Required: No PCP or OBGYN visit in last 3 months: Yes Hx Now: No Do You Feel Safe at Home: Yes Authorities Contacted: N/A Questionairres Past Medical History Past Medical History Have you ever been diagnosed with any of the following: Neurological Problems Seizures: No Hutton's Palsy: No Migraine: No Head Trauma: Yes Cardiology Problems Cardiac Arrhythmia: No Atrial Fibrillation: No Angina: No Heart Murmur: Yes Coronary Artery Disease: No Atherosclerotic Heart Disease: Yes Peripheral Vascular Disease: Yes Hypercholesterolemia: No Congestive Heart Failure: Yes Edema: Yes Cellulitis: Yes Hypertension: Yes Respiratory Problems Chronic Obstructive Pulmonary Disease (COPD): Yes Asthma: Yes Pneumonia: Yes Tuberculosis: No Pulmonary Embolism: No Sleep Apnea: No Smoking: Yes Stomache/Intestinal Problems Hepatitis: Yes Cirrhosis: Yes Gall Bladder Disease: Yes Gastrointestinal Bleed: No Ulcer: Yes Hiatal Hernia: Yes Hemorrhoids: Yes Gastroesophageal Reflux Disease: Yes Obesity: Yes Genital/Urinary Problems Renal Disease: No Kidney Stones: No Inguinal Hernia: No Musculoskeletal Problems Muscular Dystrophy: No Myasthenia Gravis: No Arthritis: Yes Osteoporosis: Yes Degenerative Disk Disease: Yes Scoliosis: Yes Carpal Tunnel Syndrome: Yes Fractures: Yes Degenerative Joint Disease: No Endocrine Problems Diabetes Mellitus Type 1: No Diabetes Mellitus Type 2: No Beauty's Syndrome: No Darian's Disease: No Hyperthyroidism: No Blood Problems Sickle Cell Disease: No Psychologic Problems Depression: No Anxiety: No Other Problems Hospitalization: Yes Shingles: Yes Falls: Yes Blood Transfusions: No Blood Transfusion Reaction: No Anesthesia Reactions: No Organ Transplant: No Chemotherapy: No Radiation Therapy: No MRSA: No Chicken Pox: Yes Measles: Yes Hepatitis A: Yes Hepatitis C: Yes Cancer: No Surgical History Hysterectomy: Yes Pacemaker: No Subjective Visit Visit for: new patient and knee Immunization / Flu Flu Vaccine in the Last 12 Months: No Flu Vaccine Exclusion Criteria: Refused by Patient History of Present Illness Chief complaint: OSTEOARTHRITIS LEFT KNEE Date of injury / onset of symptoms: 5 YEARS HISTORY OF PRESENT ILLNESS IDionicio, have obtained verbal consent from the patient, to be recorded during this encounter which may include, but not limited to, medical history, examination, treatment plans, and relevant health information.? Patient was informed that recording will be read and reviewed by myself before inclusion in the medical chart. The patient presents for evaluation of bilateral knee pain. She reports severe pain in her right knee, which has undergone multiple surger ies including a revision total knee replacement by Dr. Almeida. The incision is curved due to previous procedures. She has no history of infection in the knee. She reports that she has pain everywhere in her right knee Additionally, she experiences discomfort in her left knee, which she attributes to arthritis. She has not received any injections for this condition. Personal History Occupation: RETIRED Red flag PMH: none BMI Counceling provided: Yes Pain Pain level (0-10): 4 Pain location: inside (medial), outside (lateral) and posterior Pain quality: sharp and aching Pain timing: night, increases with activity and stairs Associated signs & symptoms: stiffness Ambulatory data Ambulatory device: none Walking distance (minutes): 5 Treatments Number of previous injections: 0 Improvement with previous injections: No Number of Physical Therapy sessions: 0 Improvement with PT: No Improvement with NSAIDS: yes (JESSICA) Review of Systems Review of Systems: All systems negative unless otherwise noted in HPI.
== END 2025-07-25 09:16 | disposition home or self-care (01) ==
LOC: HODSRG 08:36
PROVIDERS: PCP Family Medicine; Referring Provider Family Medicine; Supervising Provider Orthopaedic Surgery Adult Reconstructive Orthopaedic Surgery; Visit Provider Orthopaedic Surgery Adult Reconstructive Orthopaedic Surgery
DX: M25.562 Pain in left knee (principal); M25.561 Pain in right knee; T84.033A Mechanical loosening of internal left knee prosthetic joint, initial encounter; Y84.9 Medical procedure, unspecified as the cause of abnormal reaction of the patient, or of later complication, without mention of misadventure at the time of the procedure; M17.12 Unilateral primary osteoarthritis, left knee; I11.0 Hypertensive heart disease with heart failure; I50.9 Heart failure, unspecified; I25.10 Atherosclerotic heart disease of native coronary artery without angina pectoris; J44.9 Chronic obstructive pulmonary disease, unspecified; K21.9 Gastro-esophageal reflux disease without esophagitis; E66.9 Obesity, unspecified; Z71.3 Dietary counseling and surveillance; Z68.34 Body mass index [BMI] 34.0-34.9, adult
CPT/HCPCS: 20610; 99203; J1010; J2795; G0463

== ENCOUNTER 2025-08-31 07:51 | Outpatient (RCR) | payer MEDICARE, SELFPAY | END 2025-09-24 23:59 | disposition home or self-care (01) | LOC: SCTC 07:51 | PROVIDERS: PCP Nurse Practitioner; Referring Provider Nurse Practitioner; Visit Provider Nurse Practitioner Family | DX: D50.9 Iron deficiency anemia, unspecified (principal); Z87.11 Personal history of peptic ulcer disease; Z87.19 Personal history of other diseases of the digestive system; Z12.31 Encounter for screening mammogram for malignant neoplasm of breast; R92.8 Other abnormal and inconclusive findings on diagnostic imaging of breast; N63.10 Unspecified lump in the right breast, unspecified quadrant | CPT/HCPCS: 77063; 77067; 99213; G0463 ==

== ENCOUNTER → 2025-08-31 | Outpatient (CLI) | payer MEDICARE, SELFPAY ==
--- NOTE | 2025-08-31 13:30 | XR_ITS ---
Examination: Screening digital mammography, bilateral Computer aided detection 3-D breast Tomosynthesis, bilateral Date and time of exam: 08/31/2025, 1:19 p.m. Comparisons: 02/12/2024 Indications: Screening, new palpable right breast lump as per patient history sheet Technique: Nonmagnified MLO, CC views of the breasts to been obtained, reconstructed from 3-D Tomosynthesis images. R2 computer aided detection program utilized for evaluation of suspicious masses and/or abnormal calcifications. 3-D Tomosynthesis images obtained. Technologist: Findings: There are scattered areas of fibroglandular density. No evidence of abnormal masses or suspicious calcifications. Impression: Negative screening mammogram. Patient reports a new palpable right breast lump. Spot compression views and ultrasound evaluation of the right breast palpable abnormality is recommended. BI-RADS category 0: Incomplete assassment; need additional imaging evaluation
== END | disposition home or self-care (01) ==
LOC: CDIM 13:11
PROVIDERS: Referring Provider Nurse Practitioner; Visit Provider Nurse Practitioner
DX: Z12.31 Encounter for screening mammogram for malignant neoplasm of breast (principal); R92.8 Other abnormal and inconclusive findings on diagnostic imaging of breast; N63.10 Unspecified lump in the right breast, unspecified quadrant
CPT/HCPCS: 77063; 77067

== ENCOUNTER 2025-09-06 06:35 | Day surgery (SDC) | payer MEDICARE, SELFPAY ==
--- NOTE | 2025-09-04 07:00 | EKG_ITS ---
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 : 1955 Requested By: Manjit Zheng Order Number: [id number] Reading MD: Manjit Zheng Measurements Intervals [place] Rate: 55 P: -72 MI: 156 QRS: 96 QRSD: 95 T: 51 QT: 482 QTc: 464 Interpretive Statements SINUS BRADYCARDIA WITH OCCASIONAL VENTRICULAR PREMATURE COMPLEXES BORDERLINE RIGHT AXIS DEVIATION [QRS AXIS > 90] INCOMPLETE RIGHT BUNDLE BRANCH BLOCK [90+ ms QRS DURATION, TERMINAL R IN V1/V2, 40+ ms S IN I/aVL/V4/V5/V6] PROLONGED QT INTERVAL Compared to ECG 04/04/2025 12:44:27 Incomplete right bundle-branch block now present Sinus rhythm no longer present /store/S0/[id number]/[id number].pdf
[2025-09-04 12:32] VITALS: BMI 35.5
[2025-09-04 15:29] LABS: Basophils # (Auto) 0.1 Thou/mm3 (0.0-0.2); Basophils % (Auto) 1 % (0-2.5); Eosinophils # (Auto) 0.3 Thou/mm3 (0.0-0.5); Eosinophils % (Auto) 4 % (0-10); Hematocrit 29.9 % (36.0-46.0); Hemoglobin 9.0 g/dL (12.0-16.0); Immature Granulocytes Auto 0.03 Thou/mm3 (0.00-0.00); Lymphocytes # (Auto) 1.3 Thou/mm3 (1.0-4.8); Lymphocytes % (Auto) 17 % (10-50); Mean Corpuscular HGB Conc 30.1 g/dl (31.0-37.0); Mean Corpuscular Hemoglobin 26.4 pg (25.0-35.0); Mean Corpuscular Volume 88 fL (80-100); Monocytes # (Auto) 0.6 Thou/mm3 (0.0-0.8); Monocytes % (Auto) 7 % (0-12); Neutrophils # (Auto) 5.5 Thou/mm3 (1.8-7.7); Neutrophils % (Auto) 71 % (37-80); Nucleated Red Blood Cell # 0.00 Thou/mm3 (0.00-0.00); Nucleated Red Blood Cell % 0 /100 WBC (0); Platelet Count 324 Thou/mm3 (140-440); RDW Standard Deviation 50.7 fL (36.4-46.3); Red Blood Count 3.41 Miln/mm3 (4.00-5.20); White Blood Count 7.8 Thou/mm3 (3.6-11.0)
[2025-09-04 15:36] LABS: INR 1.0 (0.9-1.3); Partial Thromboplastin Time 25.5 Seconds (22.0-36.0); Prothrombin Time 11.0 Seconds (9.0-12.2)
[2025-09-04 15:45] LABS: Anion Gap 9 (7-16); BUN/Creatinine Ratio 22 Ratio (12-20); Blood Urea Nitrogen 24 mg/dL (9-23); Calcium 9.7 mg/dL (8.3-10.6); Carbon Dioxide 29.3 mMol/L (20.0-31.0); Chloride 103 mMol/L (98-107); Creatinine (Component) 1.1 mg/dL (0.6-1.3); Estimated Creatinine Clearance 59.1 mL/min (>60); Glucose 91 mg/dL (74-106); Osmolality,Calculated 285 (275-295); Potassium 4.9 mMol/L (3.4-5.1); Sodium 141 mMol/L (136-145); eGFR 55 See Note
[2025-09-06] VITALS (11 sets, daily range): BP systolic 107–171; BP diastolic 45–100; PULSE 45–73; RESP 12–18; TEMP 36.7–36.8; O2SAT 93–98
[2025-09-06 08:58] LABS: ACT (CATH LAB ONLY) 273.0 Seconds (89-169)
--- NOTE | 2025-09-06 09:31 | ESOP_ITS ---
RE: EMERALD REY : 1955 DATE OF PROCEDURE: 09/06/2025 PROCEDURES PERFORMED: 1. Diagnostic bilateral selective coronary angiogram, right and left coronary angiogram (CPT 93489). 2. Selective cannulation of left internal mammary artery, left internal mammary artery bypass graft angiogram (CPT code 05452). 3. Complex protected PCI of the left main coronary artery. 4. Placement of drug-eluting stent in distal left main coronary artery (CPT code 61408). 5. Complex PCI stent placement into left circumflex artery. 6. Ultrasound-guided access right femoral artery. 7. Iliofemoral angiogram followed by Angio-Seal deployment. 8. Conscious sedation, 1 hour duration. DIAGNOSES: Coronary artery disease, status post bypass graft surgery, incomplete revascularization, left internal mammary artery to left anterior descending artery, the left main coronary artery stenosis, circumflex artery not bypassed, status post aortic valve replacement, mitral valve repair. HISTORY AND INDICATIONS: The patient is a 69-year-old lady with history of multivessel coronary artery disease, multivessel stent placement, had left main coronary artery stenosis, underwent bypass graft surgery, valve replacement, complex procedure complicated by prolonged hospitalization for 1 month due to complications. Patient had mitral valve repair and also aortic valve replacement at the same time and a DE LA CRUZ to LAD bypass graft surgery done about 4 months ago. She is now having episodes of chest tightness, has 90% stenosis of the distal left main coronary artery and proximal circumflex artery, hence PCI stent placement distal left main coronary artery into circumflex artery is recommended if the DE [place] CRUZ to LAD is patent. DESCRIPTION OF PROCEDURE: Patient brought to cardiac catheterization lab where she was given 2 mg Versed, 100 mcg fentanyl for conscious sedation. The right femoral approach was taken. Right femoral artery cannulated with micropuncture technique. Ultrasound guidance was used. Ultrasound guidance was documented. A 6-Peruvian sheath was introduced. Selective right coronary angiogram performed with FR4 diagnostic catheter, showed patent right coronary artery. There is moderate disease involving the distal right coronary artery, but 30% narrowing, unchanged. Left coronary artery was cannulated by a 6-Peruvian FL4 guiding catheter and left coronary angiogram showed following findings: Left main coronary artery showed 95% stenosis of the distal left main coronary artery involving the origin of the circumflex artery, culprit lesion. Left anterior descending artery occluded in the mid segment. The stent is patent, but there is . Left internal mammary artery to the left anterior descending artery is widely patent with excellent distal flow. Aortic valve was not crossed. We proceeded with PCI stent placement of the left main coronary artery distal and into circumflex artery. Intervention details are as follows. Patient was given 10,000 units of heparin IV. ACT was 275. Proceeded with the PCI. A 6-Peruvian FL4 guiding catheter was used to cannulate the left main coronary artery. A 0.014 Runthrough guidewire was used to cross the lesion successfully. Predilation of the lesion performed with 2.5, subsequently 3.0 NC balloons, and 3.5 x 12 mm Arash Medtronic stent was deployed in the left main coronary artery into the proximal circumflex artery, 2 mm into circumflex artery with 6 atmospheric pressures. Subsequently, 4.0 x 8 mm noncompliant balloon was used to dilate the left main stent with excellent apposition and excellent results. Following the procedure, patient had no complications. Final angiogram showed widely patent left main coronary artery, widely patent left anterior descending artery and circumflex artery with no residual stenosis. DONATO flow is 3. Iliofemoral angiogram performed. Angio-Seal was deployed successfully. SUMMARY OF FINDINGS: 1. Multivessel coronary artery disease, evidence of DE LA CRUZ to LAD widely patent. 2. Left main coronary artery stenosis, 95% stenosis. 3. A 90% stenosis of ostial circumflex artery. 4. Successful PCI stent placement distal left main coronary artery, placement of drug-eluting stent, 3.5 x 12 mm stent post dilated using 4.0 x 8 noncompliant balloon in the left main coronary artery, pre-procedure stenosis 95%, post-procedure 0%, pre-procedure DONATO flow 3, post-procedure DONATO flow 3. 5. Successful stent placement proximal circumflex artery, placement of drug- eluting stent, 3.5 x 12 stent. No complications during the procedure. Estimated blood loss less than 10 mL. Patient will continue on aspirin and Plavix dual antiplatelet drug therapy. Patient was somewhat bradycardic. We stopped the metoprolol 25 mg that was on that she was taking since her blood pressure on the low side and heart rate is also low. Statin therapy will be continued as well. DT: 08:53:06 TT: 09:30:00 Ref: [id number] - TID: [id number]
== END 2025-09-06 12:15 | disposition home or self-care (01) ==
PROVIDERS: PCP Family Medicine; Referring Provider Internal Medicine Cardiovascular Disease; Visit Provider Internal Medicine Cardiovascular Disease
PROC: (CPT 93455; principal; 2025-09-06 07:30)
DX: I25.118 Atherosclerotic heart disease of native coronary artery with other forms of angina pectoris (principal); I10 Essential (primary) hypertension; Z95.5 Presence of coronary angioplasty implant and graft; E78.00 Pure hypercholesterolemia, unspecified; Z01.810 Encounter for preprocedural cardiovascular examination; Z95.2 Presence of prosthetic heart valve; Z95.1 Presence of aortocoronary bypass graft; Z79.02 Long term (current) use of antithrombotics/antiplatelets; Z79.82 Long term (current) use of aspirin
CPT/HCPCS: 93455; G0278; C9600; 36415; 80048; 85025; 85347; 85610; 85730; 93005; 99152; 99153; A4649; C1725; C1760; C1769; C1874; C1887; C1894; J0153; J0168; J0461; J1643; J2250; J2312; J2371; J3010; J3490; Q9967; A9270; J2305

== ENCOUNTER → 2025-09-13 | Outpatient (CLI) | payer MEDICARE, SELFPAY ==
[2025-09-13 11:42] LABS: Basophils # (Auto) 0.1 Thou/mm3 (0.0-0.2); Basophils % (Auto) 1 % (0-2.5); Eosinophils # (Auto) 0.2 Thou/mm3 (0.0-0.5); Eosinophils % (Auto) 3 % (0-10); Hematocrit 28.7 % (36.0-46.0); Immature Granulocytes Auto 0.04 Thou/mm3 (0.00-0.00); Immature Reticulocyte Fraction 25.6 % (3.0-15.9); Lymphocytes # (Auto) 0.8 Thou/mm3 (1.0-4.8); Lymphocytes % (Auto) 14 % (10-50); Mean Corpuscular HGB Conc 30.0 g/dl (31.0-37.0); Mean Corpuscular Hemoglobin 26.4 pg (25.0-35.0); Mean Corpuscular Volume 88 fL (80-100); Monocytes # (Auto) 0.4 Thou/mm3 (0.0-0.8); Monocytes % (Auto) 7 % (0-12); Neutrophils # (Auto) 4.5 Thou/mm3 (1.8-7.7); Neutrophils % (Auto) 76 % (37-80); Nucleated Red Blood Cell # 0.00 Thou/mm3 (0.00-0.00); Nucleated Red Blood Cell % 0 /100 WBC (0); Platelet Count 258 Thou/mm3 (140-440); RDW Standard Deviation 53.8 fL (36.4-46.3); Red Blood Count 3.26 Miln/mm3 (4.00-5.20); Reticulocyte % (Auto) 2.5 % (0.5-1.5); Reticulocyte Absolute Auto 82.5 Biln/L (25.0-75.0); Reticulocyte Hgb Content 25.0 pg (28.0-35.0); White Blood Count 6.0 Thou/mm3 (3.6-11.0)
[2025-09-13 12:01] LABS: Hemoglobin 8.6 g/dL (12.0-16.0)
[2025-09-13 12:05] LABS: Folate 5.83 ng/mL (>5.38); Vitamin B12 303 pg/mL (211-911)
[2025-09-13 12:06] LABS: Alanine Aminotransferase 15 U/L (10-49); Albumin, Serum 4.5 gm/dL (3.4-4.8); Albumin/Globulin Ratio 2.0 (1.2-2.2); Alkaline Phosphatase 214 U/L (46-116); Anion Gap 8 (7-16); Aspartate Amino Transferase 19 U/L (0-34); BUN/Creatinine Ratio 21 Ratio (12-20); Bilirubin,Total 0.5 mg/dL (0.3-1.2); Blood Urea Nitrogen 19 mg/dL (9-23); Calcium 9.1 mg/dL (8.3-10.6); Calcium (Corrected) 9.1 mg/dL (8.5-10.1); Carbon Dioxide 26.4 mMol/L (20.0-31.0); Chloride 108 mMol/L (98-107); Creatinine (Component) 0.9 mg/dL (0.6-1.3); Ferritin 22 ng/mL (7.3-270.7); Free T3 2.3 pg/mL (2.3-4.2); Free T4 (Free Thyroxine) 1.23 ng/dL (0.89-1.76); Globulin 2.3 gm/dL (2.3-3.5); Glucose 100 mg/dL (74-106); Iron 33 mcg/dL (50-170); LDH (Lactate Dehydrogenase) 313 U/L (120-246); Osmolality,Calculated 285 (275-295); Percent Iron Saturation 8 % (20-55); Potassium 4.3 mMol/L (3.4-5.1); Sodium 142 mMol/L (136-145); Thyroid Stimulating Hormone 9.95 uIU/mL (0.55-4.78); Total Iron Binding Capacity 387 mcg/dL (250-425); Total Protein 6.8 gm/dL (5.7-8.2); Unsaturated Iron Binding 354 (225-295); eGFR > 60 See Note
[2025-09-19 06:38] LABS: Haptoglobin* 35 mg/dL (43-212)
== END | disposition home or self-care (01) ==
LOC: COPL 10:51
PROVIDERS: PCP Family Medicine; Referring Provider Nurse Practitioner Family; Visit Provider Nurse Practitioner
DX: E03.8 Other specified hypothyroidism (principal)
CPT/HCPCS: 36415; 80053; 82607; 82728; 82746; 83010; 83540; 83550; 83615; 84439; 84443; 84481; 85025; 85046

== ENCOUNTER 2025-10-05 13:53 | Outpatient (RCR) | payer MEDICARE, SELFPAY | END 2025-10-25 23:59 | disposition home or self-care (01) | LOC: SCTC 13:53 | PROVIDERS: PCP Family Medicine; Referring Provider Family Medicine; Visit Provider Nurse Practitioner Family | DX: D50.9 Iron deficiency anemia, unspecified (principal) | CPT/HCPCS: 99212; G0463 ==